=== PATIENT | male | born 1945 | race Caucasian/White ===

== ENCOUNTER → 2017-04-24 12:00 | Outpatient (REF) | payer MEDICARE, SELFPAY | LOC: LAB 12:00 | PROVIDERS: Visit Provider Family Medicine | DX: S81.802A Unspecified open wound, left lower leg, initial encounter (principal) | CPT/HCPCS: 87070; 87077; 87186; 87205 ==

== ENCOUNTER → 2017-08-04 09:48 | Outpatient (REF) | payer MEDICARE, SELFPAY | LOC: LAB 09:48 | PROVIDERS: Visit Provider Internal Medicine Adolescent Medicine | DX: S81.802A Unspecified open wound, left lower leg, initial encounter (principal) | CPT/HCPCS: 87070; 87077; 87186; 87205 ==

== ENCOUNTER 2017-10-30 11:00 | Outpatient (RCR) | payer MEDICARE, SELFPAY ==
--- NOTE | 2017-09-23 09:08 | HMH.RHREAS ---
Rehab Reassessment Rehab OP Re-assessment Start: 07/30/17 09:29 Freq: Status: Active Protocol: Document 09/23/17 08:41 DEEPTHI (Rec: 09/23/17 09:08 DEEPTHI [id number]) Electronically Signed By Darren Martin, PT 09/23/17 08:41 Rehab Re-assessment Subjective Subjective Pt reports only minimla itching from wound - no pain Objective Objective Notes wound measure 1.2 x 0.8 cm 100 % granulation Assessment Progress Assessment Progressing as Expected Assessment Notes progressing well but slow Patient goals met all stg/LTG Goals Not Met 0 Revised Goals 100% epithelialization Plan Plan cont w/ original POC Frequency of Therapy 2/week Duration of therapy 8 weeks PHYSICIAN CERTIFICATION: I certify the specified therapy services for Beth Castro are required, authorized, and reviewed every 30 days.
== END 2017-10-30 11:01 | disposition home or self-care (01) ==
LOC: PT 11:00
PROVIDERS: Visit Provider Family Medicine
DX: L97.822 Non-pressure chronic ulcer of other part of left lower leg with fat layer exposed (principal); I87.2 Venous insufficiency (chronic) (peripheral)
CPT/HCPCS: 29580; 97140; 97162; 97164; 97597

== ENCOUNTER → 2017-11-04 10:00 | Outpatient (CLI) | payer MEDICARE, SELFPAY ==
[2017-11-04 11:13] LABS: Potassium 4.4 mmoL/L (3.5-5.1)
[2017-11-04 11:37] LABS: Alanine Aminotransferase 30 U/L (12-78); Albumin Level 3.6 gm/dL (3.4-5.0); Alkaline Phosphatase 80 U/L (46-116); Anion Gap 13.4 mEq/L (5-15); Aspartate Amino Transferase 22 U/L (15-37); Bilirubin,Total 0.9 mg/dL (0.2-1.0); Blood Urea Nitrogen 18 mg/dL (7-18); Calcium 8.7 mg/dL (8.5-10.1); Carbon Dioxide 27 mmol/L (21.0-32.0); Chloride 107 mmol/L (98-107); Chol/HDL Ratio 3.9 (1-3.5); Cholesterol 166 mg/dL (140-200); Creatinine,Serum 0.83 mg/dL (0.70-1.30); Estimated Glomerular Filt Rate 91 ml/min (>60); GFR (African American) 110 ML/MIN (>60); Globulin 3.6 gm/dl (1.3-3.2); Glucose 98 mg/dL (74-106); HDL Cholesterol 43 mg/dL (27-67); LDL Cholesterol 104 mg/dL (0-130); Sodium 143 mmol/L (136-145); Thyroid Stimulating Hormone 1.75 uIU/ml (0.358-3.740); Total Protein,Serum 7.2 gm/dL (6.4-8.2); Triglycerides 97 mg/dL (30-200); VLDL Cholesterol 19 mg/dL (0-40)
== END ==
PROVIDERS: Visit Provider Nurse Practitioner Family
DX: Z00.00 Encounter for general adult medical examination without abnormal findings (principal); E03.9 Hypothyroidism, unspecified
CPT/HCPCS: 36415; 80053; 80061; 84443

== ENCOUNTER → 2018-03-03 09:58 | Outpatient (CLI) | payer MEDICARE, SELFPAY ==
[2018-03-03 11:35] LABS: Alanine Aminotransferase 24 U/L (12-78); Albumin Level 3.7 gm/dL (3.4-5.0); Alkaline Phosphatase 89 U/L (46-116); Anion Gap 11.2 mEq/L (5-15); Aspartate Amino Transferase 19 U/L (15-37); Bilirubin,Total 0.7 mg/dL (0.2-1.0); Blood Urea Nitrogen 16 mg/dL (7-18); Calcium 9.2 mg/dL (8.5-10.1); Carbon Dioxide 31 mmol/L (21.0-32.0); Chloride 106 mmol/L (98-107); Chol/HDL Ratio 3.9 (1-3.5); Cholesterol 185 mg/dL (140-200); Creatinine,Serum 0.77 mg/dL (0.70-1.30); Estimated Glomerular Filt Rate 99 ml/min (>60); GFR (African American) 120 ML/MIN (>60); Globulin 3.8 gm/dl (1.3-3.2); Glucose 74 mg/dL (74-106); HDL Cholesterol 47 mg/dL (27-67); LDL Cholesterol 100 mg/dL (0-130); Potassium 4.2 mmoL/L (3.5-5.1); Sodium 144 mmol/L (136-145); Thyroid Stimulating Hormone 11.52 uIU/ml (0.358-3.740); Total Protein,Serum 7.5 gm/dL (6.4-8.2); Triglycerides 190 mg/dL (30-200); VLDL Cholesterol 38 mg/dL (0-40)
== END ==
PROVIDERS: PCP Nurse Practitioner Family; Visit Provider Nurse Practitioner Family
DX: Z00.00 Encounter for general adult medical examination without abnormal findings (principal); E03.9 Hypothyroidism, unspecified
CPT/HCPCS: 36415; 80053; 80061; 84443

== ENCOUNTER → 2020-03-27 11:08 | Outpatient (CLI) | payer MEDICARE, SELFPAY | PROVIDERS: Visit Provider Pediatrics | DX: L97.822 Non-pressure chronic ulcer of other part of left lower leg with fat layer exposed (principal) | CPT/HCPCS: 87070; 87077; 87186; 87205 ==

== ENCOUNTER → 2020-06-07 10:45 | Outpatient (CLI) | payer MEDICARE, SELFPAY | PROVIDERS: Visit Provider Pediatrics | DX: L97.822 Non-pressure chronic ulcer of other part of left lower leg with fat layer exposed (principal) | CPT/HCPCS: 87070; 87077; 87186; 87205 ==

== ENCOUNTER → 2020-10-31 14:19 | Outpatient (POV) | payer MEDICARE, SELFPAY | PROVIDERS: Visit Provider Dermatology | DX: Z00.00 Encounter for general adult medical examination without abnormal findings (principal) ==

== ENCOUNTER 2020-11-08 14:00 | Outpatient (RCR) | payer MEDICARE, SELFPAY | END 2020-11-08 14:05 | disposition home or self-care (01) | LOC: PT 14:00 | PROVIDERS: PCP Nurse Practitioner Family; Visit Provider Pediatrics | DX: L97.822 Non-pressure chronic ulcer of other part of left lower leg with fat layer exposed (principal); L03.116 Cellulitis of left lower limb | CPT/HCPCS: 29580; 97161; 97164; 97597; 97598; 97760 ==

== ENCOUNTER 2024-08-21 10:56 | Emergency (ER) | payer MEDICARE, SELFPAY ==
[2024-08-21] VITALS (7 sets, daily range): BP systolic 121–149; BP diastolic 75–90; PULSE 71–81; RESP 20; TEMP 36.8–36.9; O2SAT 93–98; BMI 42.0
--- NOTE | 2024-08-21 10:57 | XR_ITS ---
PROCEDURE INFORMATION: Exam: XR Right Knee Exam date and time: 08/21/2024 11:31 AM Age: 79 years old Clinical indication: Injury or trauma; Fall; Other: Pain; Additional info: Fall, right hip pain TECHNIQUE: Imaging protocol: Radiologic exam of the right knee. Views: 3 views. COMPARISON: CR XR FEMUR RT 2V 08/21/2024 11:31 AM FINDINGS: Bones/joints: There is no evidence for acute fracture or dislocation. The bones are osteopenic. There is tricompartmental narrowing and osteophytosis. Soft tissues: Suprapatellar swelling is present. IMPRESSION: Osteopenia, degenerative change. Suprapatellar swelling.
--- NOTE | 2024-08-21 10:57 | XR_ITS ---
PROCEDURE INFORMATION: Exam: XR Right Hip Exam date and time: 08/21/2024 11:31 AM Age: 79 years old Clinical indication: Injury or trauma; Fall; Other: Pain; Additional info: Fall, right hip pain TECHNIQUE: Imaging protocol: Radiologic exam of the right hip. Views: 2 or 3 views hip with pelvis when performed. COMPARISON: CR XR FEMUR RT 2V 08/21/2024 11:31 AM FINDINGS: Bones/joints: There is an angulated comminuted intertrochanteric fracture of the right proximal femur. Soft tissues: Unremarkable. IMPRESSION: Fracture of the right proximal femur.
--- NOTE | 2024-08-21 10:57 | XR_ITS ---
PROCEDURE INFORMATION: Exam: XR Right Femur Exam date and time: 08/21/2024 11:31 AM Age: 79 years old Clinical indication: Injury or trauma; Fall; Other: Pain; Additional info: Fall, right hip pain TECHNIQUE: Imaging protocol: Radiologic exam of the right femur. Views: 2 views. COMPARISON: CR XR HIP RT 2-3V W/PELVIS 08/21/2024 11:31 AM FINDINGS: Bones/joints: Study is limited by patient body habitus and notable underpenetration obscuring the right hip joint. The bones are osteopenic. There is intertrochanteric fracture of the right proximal femur. Soft tissues: Unremarkable. IMPRESSION: Limited study. Fracture of the right proximal femur.
--- NOTE | 2024-08-21 11:00 | CT_ITS ---
PROCEDURE INFORMATION: Exam: CT Head Without Contrast Exam date and time: 08/21/2024 11:24 AM Age: 79 years old Clinical indication: Injury or trauma; Additional info: Fall TECHNIQUE: Imaging protocol: Computed tomography of the head without contrast. Radiation optimization: All CT scans at this facility use at least one of these dose optimization techniques: automated exposure control; mA and/or kV adjustment per patient size (includes targeted exams where dose is matched to clinical indication); or iterative reconstruction. COMPARISON: No relevant prior studies available. FINDINGS: Brain: There is no mass effect, midline shift, acute hemorrhage, extra-axial fluid collection, acute hemorrhage, extra-axial fluid collection or acute lobar infarct. Patchy hemispheric white matter hypodensity likely represents chronic microvascular ischemic change Cerebral ventricles: No ventriculomegaly. Paranasal sinuses: Visualized sinuses are unremarkable. No fluid levels. Mastoid air cells: Visualized mastoid air cells are well aerated. Bones: Unremarkable. No acute fracture. Soft tissues: Unremarkable. IMPRESSION: No acute intracranial process.
--- NOTE | 2024-08-21 11:00 | CT_ITS ---
PROCEDURE INFORMATION: Exam: CT Cervical Spine Without Contrast Exam date and time: 08/21/2024 11:26 AM Age: 79 years old Clinical indication: Injury or trauma; Additional info: Fall TECHNIQUE: Imaging protocol: Computed tomography of the cervical spine without contrast. Radiation optimization: All CT scans at this facility use at least one of these dose optimization techniques: automated exposure control; mA and/or kV adjustment per patient size (includes targeted exams where dose is matched to clinical indication); or iterative reconstruction. COMPARISON: No relevant prior studies available. FINDINGS: Bones: There is no evidence for acute cervical fracture. The bones are osteopenic. Spondylosis is noted with disc osteophyte, uncovertebral spurring and facet arthropathy Lungs: Lung apices are normal. Soft tissues: Unremarkable. IMPRESSION: No evidence of acute cervical fracture.
[2024-08-21] MEDS: MORPHINE 4MG/ML SYRINGE 4 MG IV (11:04)
[2024-08-21] MEDS: ONDANSETRON 4MG/2ML VIAL 4 MG IV (11:04)
--- NOTE | 2024-08-21 11:06 | HMH.EDGENADL ---
Discharge Plan Disposition Patient Disposition: Xfer SNF Referrals Follow up/Referrals: Provider,Referral, MD [Referring] - See instructions Clinical Impressions Clinical Impression: Fall, Femur fracture, right Stand Alone Forms Stand Alone Forms: Transfer Record - ED Print Language Print Language: Malawian Discharge ED Provider: Lm Major General Adult HPI General Chief complaint: Extremity Injury, Lower Stated complaint: fall Time Seen by Provider: 08/21/24 11:00 Mode of Arrival: EMS Source of Information: Patient and EMS Description of Symptoms (Recalled from ER Triage Doc. by RN): pt was in [facility] and fell in the bathroom. r hip pain. denies LOC or hitting his head. no blood thinners. History of Present Illness HPI narrative: 79-year-old male presents to ED via EMS after a mechanical fall. Patient denies significant past medical history beyond being borderline diabetic. Is not on blood thinners. Was going to the restroom at [facility] using his cane it slipped out from under him causing him to fall landing on his right hip causing pain at right hip. Denies head injury, neck pain, loss of consciousness, is not on blood thinners, denies daily aspirin usage. Denies any other symptoms or concerns beyond right hip pain. Pulse motor or sensory intact on arrival, decreased range of motion at right hip secondary to pain. Please note that above description of symptoms, in this electronic medical record under categorization of recalled from ER triage doctor by RN are reflective of an initial nursing assessment, however, is not reflective of my full history and physical exam that was personally taken and clarified. Consequentially, this preceding description of symptoms, which may include the patient's categorized chief complaint in the EMR, do not reflect my personal clinical impression, and the ultimate description of history of present illness and patient stated complaints should be deferred to this section of the note. Unless stated otherwise or congruent with this section of the note, additional signs, symptoms, or incongruence should be interpreted as inaccurate with my clinical impression. Related Data Allergies Allergy/AdvReac Type Severity Reaction Status Date / Time No Known Allergies Allergy Verified 08/21/24 11:00 [facility] Disclaimer: The information contained in this section may have been updated after the patient was seen, as this information can be updated by other users. Social History Smoking Status: Never smoker alcohol intake: never current occupational status: other Travel in the last 8 weeks?: None ROS Obtained: Yes Systems reviewed as appropriate & no additional complaints except as documented Physical Exam General General appearance: alert and in no apparent distress Head Head exam: atraumatic, normocephalic and normal inspection Eye Eye exam: Present normal appearance, PERRL and EOMI ENT ENT exam: Present normal exam, normal oropharynx, mucous membranes moist, TM's normal bilaterally and normal external ear exam Neck Neck exam: Present normal inspection, full ROM and trachea midline; Absent meningismus or lymphadenopathy Chest Chest inspection: Present normal inspection and symmetric chest wall rise; Absent tenderness Respiratory Respiratory exam: Absent respiratory distress or stridor Cardiovascular Cardiovascular exam: Present regular rate and normal rhythm; Absent JVD Abdominal Exam Abdominal exam: Present soft and other (Umbilical hernia noted, no overlying skin changes); Absent distention, tenderness or guarding Extremities Exam Extremities exam: Present tenderness (Tender to palpation of right hip laterally and anteriorly. Remainder of her extremities without tenderness to palpation, no noted deformity, all compartments soft.) and normal capillary refill; Absent calf tenderness Back Exam Back exam: Present normal inspection; Absent tenderness Neurological Exam Neurological exam: Present alert, oriented X3 and CN II-XII intact; Absent motor sensory deficit Psychiatric Psychiatric exam: Present normal affect and normal mood Skin Skin exam: Present warm, dry, intact and normal color Lymphatic Lymphatic Findings: no adenopathy Medical Decision Making Medical Records Medical records reviewed: Yes I reviewed the patient's medical records. Screening: Per USPSTF and CDC recommendations, given the prevalence of disease in our region, it is our hospital?s policy to screen for HIV and viral Hepatitis for all patients aged 18 and over and those with ongoing risk factors. Ariel Inquiry Pt receiving controlled substance: No Ariel was queried for this patient: No Vital Signs: 08/21/24 10:56 08/21/24 12:00 08/21/24 12:31 Temperature 98.5 F Temperature Source Oral Pulse Rate 71 81 Pulse Rate [Right] 81 Respiratory Rate 20 Blood Pressure 126/82 130/78 Blood Pressure [Right Arm] 149/90 H Blood Pressure Mean [Right Arm] 109 02 Sat by Pulse Oximetry 98 94 L 94 L Oxygen Delivery Method Room Air Room Air Room Air 08/21/24 13:00 08/21/24 13:30 Temperature Temperature Source Pulse Rate 79 78 Pulse Rate [Right] Respiratory Rate Blood Pressure 130/81 121/77 Blood Pressure [Right Arm] Blood Pressure Mean [Right Arm] 02 Sat by Pulse Oximetry 94 L 94 L Oxygen Delivery Method Room Air Room Air Orders (Tests/Meds): ED MEDICATIONS Discontinued Medications Generic Name Dose Route Start Last Admin Trade Name Dominguez PRN Reason Stop Dose Admin Morphine Sulfate 4 mg 08/21/24 10:59 08/21/24 11:04 Morphine 4mg/Ml Syringe IV 08/21/24 11:00 4 mg ONCE ONE Administration Ondansetron HCl 4 mg 08/21/24 10:57 08/21/24 11:04 Ondansetron 4mg/2ml Vial IV 08/21/24 10:58 4 mg ONCE ONE Administration Oxycodone HCl 5 mg 08/21/24 12:51 08/21/24 13:03 Oxycodone 5mg Immediate Release Tablet PO 08/21/24 12:52 5 mg ONCE ONE Administration ORDERS Category Date Time Status CT cervical spine wo con Stat Cat Scan 08/21/24 11:[address] head/brain wo con Stat Cat Scan 08/21/24 11:00 Completed Femur XR right 2 views [XR femur RT 2V] Stat Exams 08/21/24 10:57 Completed Knee XR right 3 views [XR knee RT 3V] Stat Exams 08/21/24 10:57 Completed XR hip RT 2-3V w/pelvis Stat Exams 08/21/24 10:57 Completed Medical Decision Narrative: Patient with history and exam per above presenting for evaluation of fall resulting in right hip pain. Fall was mechanical in nature. No loss consciousness, not on blood thinners, no head neck or back pain, no chest or abdominal pain. Physical neurological exam as above, reassuring Diagnoses considered include musculoskeletal pain, fracture, dislocation, intracranial abnormality, spinous abnormality ED workup and treatment included: As above. Physical exam as above, reassuring physical and neurological exam beyond decreased range of motion and tenderness to palpation of right hip Imaging was independently visualized and interpreted by me, significant for right intertrochanteric femur fracture Please refer to radiology report for full details. My clinical impression at this time is most consistent with fall, right intertrochanteric femur fracture. Discussed patient with [facility] orthopedic physician Dr. Torres who was agreeable to patient being transferred there for further evaluation of fracture. Spoke with a Dr. Gordillo with hospital medicine who accepted patient to be transferred for admission. Patient ultimately transferred to [facility] with HDS condition. I discussed my clinical impression with patient and answered all questions. At this time, the evidence for any other entities in the differential is insufficient to warrant any further testing or ED observation. This was explained to the patient. The patient was advised that persistent or worsening symptoms require further evaluation. Critical Care Critical Care Time Critical Care Time: No
--- NOTE | 2024-08-21 11:19 | PC.NURSE ---
pt is going for scans at this time
--- OUTSIDE RECORDS SUMMARY | 2024-08-21 11:22 | XMS_ITS | Continuity of Care Document ---
Author Organization [facility] Phone Care Team Providers Care Coding Spec Name Role Phone NATHALIE SPRAGUE Primary Attending [phone] NATHALIE SPRAGUE Primary Care [phone] NATHALIE SPRAGUE Unavailable NATHALIE SPRAGUE Admitting ALLERGIES AND ADVERSE REACTIONS ALLERGIES AND ADVERSE REACTIONS Code System Allergy Substance Adverse Reaction Date Reaction (Severity) Comment Status Reported By Updated By LATEX (Free Text Allergy) Adverse reaction to substance Not Specified active [id number] on August 24, 2023 10:58:01 PM [facility] FAMILY HISTORY RELATION: Father Status: Cause of : Unknown Age at : Unknown SNOMED-CT Diagnosis Age At Onset Information not available RELATION: Mother Status: Cause of : Unknown Age at : Unknown SNOMED-CT Diagnosis Age At Onset [id number] Heart disease RESULTS Patient: DEQUAN BRAND Date of : May [birth year] LABORATORY RESULTS ORDER 200: CBC AUTO W DIFF ( LOINC: 41639-7) ORDER DATE: May 15, 2024 2:01:00 PM [place] Specimen Source: Whole Blood Specimen Type: Whole blood s ample PERFORMING LAB: [address] [id number] Result Comment: Final Result Date: May 15, 2024 2:38:00 PM [facility] (TECH: [facility]) LOINC TEST FLAG RESULT REFERENCE RANGE UPDA ÁNGEL BY 6690-2 Leukocytes [#/volume] in Blood by Automated count L 4.3 10^3/uL 4.5 10^3/uL - 11.5 10^3/uL May 15, 2024 2:38:00 PM [place] (TECH: [facility]) 789-8 Erythrocytes [#/volume] in Blood by Automated count L 4.14 10^6/uL 4.25 10^6/uL - 5.57 10^6/uL May 15, 2024 2:38:00 PM UTC (TECH: [email or web address]) 718-7 Hemoglobin [Mass/volume] in Blood N 13.9 g/dL 13.5 g/dL - 17.2 g/dL May 15, 2024 2:38:00 PM UTC (TECH: [email or web address]) 91368-4 Hematocrit [Volume Fraction] of Blood N 42.4 % 42.0 % - 52.0 % May 15, 2024 2:38:00 PM UTC (TECH: [email or web address]) 787-2 Erythrocyte mean corpuscular volume [Entitic volume] by Automated count H 102.4 fl 80 fl - 95 fl May 15, 2024 2:38:00 PM UTC (TECH: [email or web address]) 87853-4 Erythrocyte mean corpuscular hemoglobin [Entitic mass] in Blood from [place] by Automated count N 33.6 pg 27.0 pg - 34.0 pg May 15, 2024 2:38:00 PM UTC (TECH: [email or web address]) 54404-2 Erythrocyte mean corpuscular hemoglobin concentration [Mass/volume] in Blood from [place]etus by Automated count N 32.8 g/dL 32.0 g/dL - 36.0 g/dL May 15, 2024 2:38:00 PM UTC (TECH: [email or web address]) 06231-7 Platelets [#/volume] in Blood L 97 10^3/uL 150 10^3/uL - 450 10^3/uL May 15, 2024 2:38:00 PM UTC (TECH: [email or web address]) 85316-8 Erythrocyte distribution width [Ratio] N 12.4 % 12.3 % - 15.1 % May 15, 2024 2:38:00 PM UTC (TECH: [email or web address]) 03195-0 Platelet mean volume [Entitic volume] in Blood by Automated count N 9.4 fl 7.4 fl - 10.4 fl May 15, 2024 2:38:00 PM UTC (TECH: [email or web address]) 32158-0 Granulocytes/100 leukocytes in Blood by Automated count N 55.3 % 40 % - 75 % May 15, 2024 2:38:00 PM UTC (TECH: [email or web address]) 736-9 Lymphocytes/100 leukocytes in Blood by Automated count N 28.4 % 15 % - 57 % May 15, 2024 2:38:00 PM UTC (TECH: [facility]) 5905-5 Monocytes/100 leukocytes in Blood by Automated count N 10.7 % 4.0 % - 12.0 % May 15, 2024 2:38:00 PM UTC (TECH: [facility]) 713-8 Eosinophils/100 leukocytes in Blood by Automated count H 4.2 % 0.0 % - 4.0 % May 15, 2024 2:38:00 PM UTC (TECH: [facility]) 706-2 Basophils/100 leukocytes in Blood by Automated count N 0.5 % 0.0 % - 1.0 % May 15, 2024 2:38:00 PM UTC (TECH: [email or web address]) 72253-3 Immature granulocytes [#/volume] in Blood H 0.9 % 0.0 % - 0.8 % May 15, 2024 2:38:00 PM UTC (TECH: [email or web address]) 52315-7 Granulocytes [#/volume] in Blood by Automated count N 2.37 10^3/uL May 15, 2024 2:38:00 PM UTC (TECH: [email or web address]) 731-0 Lymphocytes [#/volume] in Blood by Automated count N 1.22 10^3/uL May 15, 2024 2:38:00 PM UTC (TECH: [facility]) 742-7 Monocytes [#/volume] in Blood by Automated count N 0.46 10^3/uL May 15, 2024 2:38:00 PM UTC (TECH: [email or web address]) 711-2 Eosinophils [#/volume] in Blood by Automated count N 0.18 10^3/uL May 15, 2024 2:38:00 PM UTC (TECH: [email or web address]) 704-7 Basophils [#/volume] in Blood by Automated count N 0.02 10^3/uL May 15, 2024 2:38:00 PM UTC (TECH: [email or web address]) 95708-8 Immature granulocytes [#/volume] in Blood N 0.04 10^3/uL May 15, 2024 2:38:00 PM UTC (TECH: [email or web address]) 67581-6 Manual differential performed [Presence] in Blood N NO May 15, 2024 2:38:00 PM UTC (TECH: [email or web address]) ORDER 300: SEDIMENTATION RAT E (LOINC: 09103-3) ORDER DATE: May 15, 2024 2:01:00 PM UTC Specimen Source: Serum/Plasm a Specimen Type: Acellular blo od (serum or plasma) specimen PERFORMING LAB: [address] [id number] Result Comment: Final Result Date: May 15, 2024 2:57:00 PM UTC (TECH: [email or web address]) LOINC TEST FLAG RESULT [place]FERENCE [place] [address]-7 Erythrocyte sedimentation rate N 8 mm/Hr 0 mm/Hr - 20 mm/Hr May 15, 2024 2:57:00 PM UTC (TECH: [email or web address]) ORDER 400: COMP METABOLIC PA UCHE (LOINC: 26022-7) ORDER DATE: May 15, 2024 2:01:00 PM UTC Specimen Source: Serum/Plasm a Specimen Type: Acellular blo od (serum or plasma) specimen PERFORMING LAB: [address] [id number] Result Comment: Final Result Date: May 15, 2024 2:38:00 PM UTC (TECH: [email or web address]) LOINC TEST FLAG RESULT REFERENCE RANGE UPDA ÁNGEL BY 2951-2 Sodium [Moles/volume ] in Serum or Plasma N 140 mmol/L 136 mmol/L - 145 mmol/L May 15, 2024 2:38:00 PM UTC (TECH: [email or web address]) 2823-3 Potassium [Moles/volume] in Serum or Plasma N 4.2 mmol/L 3.5 mmol/L - 5.1 mmol/L May 15, 2024 2:38:00 PM UTC (TECH: [email or web address]) 5-0 Chloride [Moles/volu me] in Serum or Plasma N 105 mmol/L 98 mmol/L - 107 mmol/L May 15, 2024 2:38:00 PM UTC (TECH: [email or web address]) 2027-9 Carbon dioxide, tota l [Moles/volume] in Serum or Plasma N 29 mmol/L 21 mmol/L - 32 mmol/L May 15, 2024 2:38:00 PM UTC (TECH: [email or web address]) 51701-6 Anion gap 3 in Serum or Plasma N 6.0 May 15, 2024 2:38:00 PM UTC (TECH: [email or web address]) 2345-7 Glucose [Mass/volume ] in Serum or Plasma H 117 mg/dL 70 mg/dL - 110 mg/dL May 15, 2024 2:38:00 PM UT (TECH: [email or web address]) 3094-0 Urea nitrogen [Mass/volume] in Serum or Plasma N 17 mg/dL 7 mg/dL - 18 mg/dL May 15, 2024 2:38:00 PM UT (TECH: [email or web address]) 2160-0 Creatinine [Mass/volume] in Serum or Plasma N 1.3 mg/dL 0.8 mg/dL - 1.3 mg/dL May 15, 2024 2:38:00 PM UTC (TECH: [email or web address]) 3097-3 Urea nitrogen/Creatinine [Mass Ratio] in Serum or Plasma N 13.1 9 - May 15, 2024 2:38:00 PM UT (TECH: [email or web address]) 89685-0 Glomerular filtratio n rate/1.73 sq M.predicted by Creatinine-based formula (MDRD) L 56 mL/min >60 May 15, 2024 2:38:00 PM UT (TECH: [email or web address]) 2885-2 Protein [Mass/volume ] in Serum or Plasma N 7.5 g/dL 6.4 g/dL - 8.2 g/dL May 15, 2024 2:38:00 PM UT (TECH: [email or web address]) 1751-7 Albumin [Mass/volume ] in Serum or Plasma N 3.4 g/dL 3.4 g/dL - 5.0 g/dL May 15, 2024 2:38:00 PM UT (TECH: [email or web address]) 65050-9 Calcium [Mass/volume ] in Serum or Plasma N 8.5 mg/dL 8.5 mg/dL - 10.1 mg/dL May 15, 2024 2:38:00 PM UT (TECH: [email or web address]) 85922-4 Calcium [Mass/volume ] corrected for total protein in Serum or Plasma N 9.0 mg/dL 8.5 mg/dL - 10.1 mg/dL May 15, 2024 2:38:00 PM UT (TECH: [email or web address]) 1975-2 Bilirubin.total [Mass/volume] in Serum or Plasma N 1.4 mg/dL 0.4 mg/dL - 1.5 mg/dL May 15, 2024 2:38:00 PM UTC (TECH: [email or web address]) 1920-8 Aspartate aminotransferase [Enzymatic activity/volume] in Serum or Plasma N 17 U/L 15 U/L - 37 U/L May 15, 2024 2:38:00 PM UTC (TECH: [email or web address]) 1742-6 Alanine aminotransferase [Enzymatic activity/volume] in Serum or Plasma N 19 U/L 12 U/L - 78 U/L May 15, 2024 2:38:00 PM UTC (TECH: [email or web address]) 6768-6 Alkaline phosphatase [Enzymatic activity/volume] in Serum or Plasma N 104 U/L May 15, 2024 2:38:00 PM UTC (TECH: [email or web address]) ORDER 500: C-REACTIVE PROTEI N (LOINC: 1987-08) ORDER DATE: May 15, 2024 2:01:00 PM UTC Specimen Source: Serum/Plasm a Specimen Type: Acellular blo od (serum or plasma) specimen PERFORMING LAB: [address] [id number] Result Comment: Final Result Date: May 15, 2024 2:38:00 PM UT (TECH: [email or web address]) LOINC TEST FLAG RESULT REFERENCE RANGE UPDA ÁNGEL BY 1987-08 C reactive protein [Mass/volume] in Serum or Plasma N 0.30 mg/dL 0.05 mg/dL - 0.300 mg/dL May 15, 2024 2:38:00 PM UT (TECH: [email or web address]) ORDER 600: HEMOGLOBIN A1C (L OINC: 4548-4) ORDER DATE: May 17, 2024 2:49:00 PM UTC Specimen Source: Whole Blood Specimen Type: Whole blood s ample PERFORMING LAB: [address] [id number] Result Comment: Final Result Date: May 17, 2024 3:12:00 PM UT (TECH: [email or web address]) LOINC TEST FLAG RESULT REFERENCE RANGE UPDA ÁNGEL BY 4548-4 Hemoglobin A1c/Hemoglobin.tot al in Blood N 6.1 % 4.5 % - 6.2 % May 17, 2024 3:12:00 PM UT (TECH: [email or web address]) 03603-1 Glucose mean value [Mass/volume] in Blood Estimated from glycated hemoglobin N 128 mg/dl 82 mg/dl - 131 mg/dl May 17, 2024 3:12:00 PM UTC (TECH: [email or web address]) ORDER 700: THYROID STIMULATI NG HORMONE (LOINC: 3016-3) ORDER DATE: May 17, 2024 2:49:00 PM UTC Specimen Source: Serum/Plasm a Specimen Type: Acellular blo od (serum or plasma) specimen PERFORMING LAB: [address] [id number] Result Comment: Final Result Date: May 17, 2024 3:28:00 PM UTC (TECH: [facility]) LOINC TEST FLAG RESULT REFERENCE RANGE UPDA ÁNGEL BY 3016-3 Thyrotropin [Units/volume] in Serum or Plasma H 21.87 mIU/mL 0.34 mIU/mL - 4.80 mIU/mL May 17, 2024 3:28:00 PM UTC (TECH: [facility]) ORDER 800: T4 FREE (LOINC: 3 024-7) ORDER DATE: May 17, 2024 3:27:00 PM UTC Specimen Source: Serum/Plasm a Specimen Type: Acellular blo od (serum or plasma) specimen PERFORMING LAB: [address] [id number] Result Comment: Final Result Date: May 17, 2024 3:46:00 PM UTC (TECH: [email or web address]) LOINC TEST FLAG RESULT REFERENCE RANGE UPDA ÁNGEL BY 3024-7 Thyroxine (T4) free [Mass/volume] in Serum or Plasma L 0.69 ng/dl 0.76 ng/dl - 1.46 ng/dl May 17, 2024 3:46:00 PM UTC (TECH: [facility]) LABORATORY NARRATIVE RESULTS Information is not available RADIOLOGY RESULTS Information is not available PATHOLOGY NARRATIVE RESULTS Information is not available MICROBIOLOGY RESULTS No Micro Labs/Results Exist for Patient BLOOD ADMIN RESULTS Information is not available MEDICATIONS HOME MEDICATIONS Status RXNORM NDC Medication Dose Route Frequency Dates Comments Reported By Updated By Drug Treatment Unknown DISCHARGE MEDICATIONS Status RXNORM NDC Medication Dose Route Frequency Dates Comments Physician Updated By No Discharge Medication Info rmation Available INPATIENT MEDICATIONS Status RXNORM NDC Medication Dose Route Frequency Rat e Quantity Dates Comments Physician Updated By No Inpatient Medication Info rmation Available SOCIAL HISTORY SOCIAL HISTORY SNOMED-CT Social History Element Description Effective Dates Offered Cessation Comment UpdatedBy [id number] Historical Tobacco smoking status Never Smoked Yes [id number] on December 12, 2014 4:55:49 PM [facility] SOCIAL HISTORY - Gender Sex: Male SOCIAL HISTORY - Status : status i nformation is not available Intention in Next Year: intention information is not available SOCIAL HISTORY - Sexual Behavior Sexual Orientation Gender Identity SNOMED-CT Description SNO MED -CT Description Activity Level No of Partners Partner Type UpdatedBy Information is not available HEALTH CONCERNS Problems Concern Status Health Concern problem infor mation not available. Smoking Status Status Years Used Consumed packs p er day Health Concern smoking histo ry information not available. Family History Concern Status Health Concern family histor y information not available. ENCOUNTERS ENCOUNTER INFORMATION Reason for Visit L03.116 Admission May 15, 2024 1:42:[address] [id number] Discharge May 15, 2024 1:42:00 PM [facility] DISCHARGED TO HOME OR SELF CARE ENCOUNTER DIAGNOSES Notes information is not eva ilable. Code System Diagnosis Onset Date Diagnosis information is not available. ABSTRACT DIAGNOSES Code System Diagnosis Updated By L03.116 ICD10 CELLULITIS OF LEFT LOWER AMBROSE B [id number] on May 18, 2024 8:23:37 AM [facility] L03.116 ICD10 CELLULITIS OF LEFT LOWER AMBROSE B [id number] on May 18, 2024 8:23:40 AM [facility] CARE TEAM Care Coding Spec Role NATHALIE SPRAGUE Primary Attending NATHALIE SPRAGUE Primary Care NATHALIE SPRAGUE Referring NATHALIE SPRAGUE Admitting CARE TEAM CARE behavioral pediatrician Role on Team Status Start Date End Date Update d By DARCIE ZELAYA APRN Referring normal May 15, 2024 5:00:00 AM [facility] May 15, 2024 1:42:00 PM [facility] [id number] on May 15, 2024 1:43:15 PM [facility] DARCIE ZELAYA APRN Attending normal May 15, 2024 5:00:00 AM [facility] May 15, 2024 1:42:00 PM [facility] [id number] on May 15, 2024 1:43:15 PM [facility] DARCIE ZELAYA APRN Admitting normal May 15, 2024 5:00:00 AM [facility] May 15, 2024 1:42:00 PM [facility] [id number] on May 15, 2024 1:43:15 PM [facility] DARCIE ZELAYA APRN PCP normal May 15, 2024 5:00:00 AM [facility] May 15, 2024 1:42:00 PM [facility] [id number] on May 15, 2024 1:43:15 PM [facility]
--- OUTSIDE RECORDS SUMMARY | 2024-08-21 11:22 | XMS_ITS | Data Portability ---
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 Plan of Treatment Reminders Order Date Submit Date Provider Last Modified By Organization Details Last Modified Time Details Appointments None recorded. Lab TSH, serum or plasma 2023 024 [email or web address] 6 [facility], [address] [place], [address], 4 12:55:43 mma (methylmal onic acid), serum 2023 024 [email or web address] 6 [facility], [address] [place], [address], 4 12:55:43 vitamin B12, serum 2023 024 [email or web address] 6 [facility], [address] [place], [address], 4 12:55:43 folate, serum 2023 024 BHARTI [facility], [address] , [place], [address], 4 13:17:57 PT/PTT, plasma 2023 024 [email or web address] 6 [facility], [address] [place], [address], 4 12:55:43 iron + TIBC + ferritin, serum 2023 024 [facility], [address], [place], [address], 4 12:55:44 iron saturation , serum 2023 024 [facility] 6 [facility], [address] [place], [address], 4 12:55:44 CBC w/ auto diff 2023 024 [facility], [address] [place], [address], 4 12:11:49 CMP, serum or plasma 2023 024 [facility], [address] [place], [address], 4 13:08:11 CBC w/ auto diff 2023 024 [facility], [address] [place], [address], 4 15:20:02 CMP, serum or plasma 2023 024 [facility], [address] [place], [address], 4 12:02:29 ldh, serum or plasma 2023 024 [facility], [address] [place], [address], 4 12:02:31 RADHA (antinucle ar antibodies ) screen, serum 2023 024 [facility], [address] [place], [address], 4 13:13:06 HIV (1+2) Ab screen, serum 2023 024 [email or web address] 6 [facility], [address] [place], [address], 4 08:38:39 hepatitis panel (A+B+C), acute, serum 2023 024 [email or web address] 6 [facility], [address] [facility], [place], [address], 4 08:38:39 platelets, auto, blood [email or web address] [place] [address] Lab, [address] [place], [address], 4 08:38:39 platelet Ab, serum 2023 024 BHARTI [facility], [address] [place], [address], 4 15:15:49 fadumo-ba rr virus (ebv) IgG + IgM panel, serum 2023 024 [email or web address] 6 [facility], [address] [place], [address], 4 08:38:39 Referral None recorded. Procedures None recorded. Surgeries None recorded. Imaging None recorded. Medication Orders None recorded. Patient TargetsNo targets recorded. Patient InstructionsNo instructions recorded. Reason for Referral None Reported. Results Created Date Observation Date Name Description Value Unit Range Abnormal Flag Note LastModifiedBy Organization Detail LastModifiedTime 09/29/19 24 09/29/2023 COMP METAB OLIC PANEL sodium 141 mmol/ L 136-14 5 Not Available [facility]) [address] [facility], [place], [address], 09/29/2023 12:02:29 09/29/19 24 09/29/2023 COMP METAB OLIC PANEL potassium 4.0 mmol/ L 3.6-5. 0 Not Available [facility] ([facility]) [address] , [place], [address], 09/29/2023 12:02:29 09/29/19 24 09/29/2023 COMP METAB OLIC PANEL chloride 106 mmol/ L 98-107 Not Available [facility] ([facility]) [address], [place], [address], 09/29/2023 12:02:29 09/29/19 24 09/29/2023 COMP METAB OLIC PANEL carbon dioxide 25.0 mmol/ L 21.0-3 2.0 Not Available [facility] ([facility]) [address], [place], [address], 09/29/2023 12:02:29 09/29/19 24 09/29/2023 COMP METAB OLIC PANEL anion gap 14.0 Not Available [facility] ([facility]) [address], [place], [address], 09/29/2023 12:02:29 09/29/19 24 09/29/2023 COMP METAB OLIC PANEL glucose 132 mg/dL 70-120 high Not Available [facility] ([facility]) [address] [place], [address], 09/29/2023 12:02:29 09/29/19 24 09/29/2023 COMP METAB OLIC PANEL BUN 14 mg/dL 7-18 Not Available [facility] ([facility]) [address] [place], [address], 09/29/2023 12:02:29 09/29/19 24 09/29/2023 COMP METAB OLIC PANEL creatinine 1.0 mg/dL 0.6-1. 3 Not Available [facility] [address] [facility] [place] [place], [address], 09/29/2023 12:02:29 09/29/19 24 09/29/2023 COMP METAB OLIC PANEL glomerular filtration rate TNP mlper min 60- TEST NOT PERFO RMED GFR has only been valid ated from 18 to 70 years of age. Not Available [facility] ([facility]) [address], [place], [address], 09/29/2023 12:02:29 09/29/19 24 09/29/2023 COMP METAB OLIC PANEL total protein 7.3 g/dL 6.4-8. 2 Not Available [facility] ([facility]) [address], [place], [address], 09/29/2023 12:02:29 09/29/19 24 09/29/2023 COMP METAB OLIC PANEL albumin 3.7 g/dL 3.4-5. 0 Not Available [facility] ([facility]) [address], [place], [address], 09/29/2023 12:02:29 09/29/19 24 09/29/2023 COMP METAB OLIC PANEL globulin 3.6 Not Available [facility] ([facility]) [address], [place], [address], 09/29/2023 12:02:29 09/29/19 24 09/29/2023 COMP METAB OLIC PANEL alb/glob ratio 1.0 0.7-2 Not Available [facility] ([facility]) [address], [place], [address], 09/29/2023 12:02:29 09/29/19 24 09/29/2023 COMP METAB OLIC PANEL calcium 8.4 mg/dL 8.5-10 .5 low Not Available [facility] ([facility]) [address], [place], [address], 09/29/2023 12:02:29 09/29/19 24 09/29/2023 COMP METAB OLIC PANEL bilirubin total 1.20 mg/dL 0.10-1 .00 high Not Available [facility] ([facility]) [address] , [place], [address], 09/29/2023 12:02:29 09/29/19 24 09/29/2023 COMP METAB OLIC PANEL AST (SGOT) 14 U/L 0-37 Not Available [facility] ([facility]) [address] , [place], [address], 09/29/2023 12:02:29 09/29/19 24 09/29/2023 COMP METAB OLIC PANEL ALT (SGPT) 16 U/L 0-65 Not Available [facility] ([facility]) [address] , [place], [address], 09/29/2023 12:02:29 09/29/19 24 09/29/2023 COMP METAB OLIC PANEL alk phosphatase 78 U/L 46-116 Not Available [facility] ([facility]) [address] , [place], [address], 09/29/2023 12:02:29 09/29/19 24 09/29/2023 LDH (LD) LDH 180 U/L 0-190 Not Available [facility] ([facility]) [address] , [place], [address], 09/29/2023 12:02:31 09/29/19 24 09/29/2023 CBC AUTO W DIFF WBC 4.3 K/uL 4.0-10 .5 Not Available [facility] ([facility]) [address] [place], [address], 09/29/2023 15:20:02 09/29/19 24 09/29/2023 CBC AUTO W DIFF RBC 3.9 M/mm3 4.7-6. 1 low Not Available [facility] [address] [facility] [place], [address], 09/29/2023 15:20:02 09/29/19 24 09/29/2023 CBC AUTO W DIFF HGB 13.5 gm/dL 13.5-1 8.0 Not Available [facility] ([facility]) [address] , [place], [address], 09/29/2023 15:20:02 09/29/19 24 09/29/2023 CBC AUTO W DIFF HCT 40.5 % 42.0-5 2.0 low Not Available [facility] ([facility]) [address], [place], [address], 09/29/2023 15:20:02 09/29/19 24 09/29/2023 CBC AUTO W DIFF MCV 103.1 fL 78-100 high Not Available [facility] ([facility]) [address] , [place], [address], 09/29/2023 15:20:02 09/29/19 24 09/29/2023 CBC AUTO W DIFF MCH 34.4 pg 27-31 high Not Available [facility] ([facility]) [address] , [place], [address], 09/29/2023 15:20:02 09/29/19 24 09/29/2023 CBC AUTO W DIFF MCHC 33.3 g/dL 32-36 Not Available [facility] ([facility]) [address] , [place], [address], 09/29/2023 15:20:02 09/29/19 24 09/29/2023 CBC AUTO W DIFF RDW 13.1 % 11.5-1 4.0 Not Available [facility] ([facility]) [address], [place], [address], 09/29/2023 15:20:02 09/29/19 24 09/29/2023 CBC AUTO W DIFF platelet count 98 K/uL 150-45 0 low Not Available [facility] ([facility]) [address] [place], [address], 09/29/2023 15:20:02 09/29/19 24 09/29/2023 CBC AUTO W DIFF MPV 11.8 fL 6-9.5 high Not Available [facility] ([facility]) [address] [place], [address], 09/29/2023 15:20:02 09/29/19 24 09/29/2023 CBC AUTO W DIFF neutrophil% 54.3 % 43-65 Not Available [facility] ([facility]) [address] [place], [address], 09/29/2023 15:20:02 09/29/19 24 09/29/2023 CBC AUTO W DIFF lymphocyte% 29.2 % 20.5-4 5.5 Not Available [facility] ([facility]) [address] [place], [address], 09/29/2023 15:20:02 09/29/19 24 09/29/2023 CBC AUTO W DIFF monocyte% 10.6 % 5.5-11 .7 Not Available [facility] ([facility]) [address] [place], [address], 09/29/2023 15:20:02 09/29/19 24 09/29/2023 CBC AUTO W DIFF eosinophil% 3.8 % 0.9-2. 9 high Not Available [facility] ([facility]) [address] [place], [address], 09/29/2023 15:20:02 09/29/19 24 09/29/2023 CBC AUTO W DIFF basophil% 1.2 % 0.2-1. 0 high Not Available [facility] ([facility]) [address] [place], [address], 09/29/2023 15:20:02 09/29/19 24 09/29/2023 CBC AUTO W DIFF immature granulocytes % 0.9 % 0.0-0. 8 high Not Available [facility] ([facility]) [address] [facility], [place], [address], 09/29/2023 15:20:02 09/29/19 24 09/29/2023 CBC AUTO W DIFF nucleated red blood cells % 0.0 % Not Available [facility] ([facility]) [address] [facility], [place], [address], 09/29/2023 15:20:02 09/29/19 24 09/29/2023 CBC AUTO W DIFF neutrophil# 2.3 K/uL 2.2-4. 8 Not Available [facility] ([facility]) [address] [facility], [place], [address], 09/29/2023 15:20:02 09/29/19 24 09/29/2023 CBC AUTO W DIFF lymphocyte# 1.2 cell/ mcL 1.3-2. 9 low Not Available [facility] ([facility]) [address] [place], [address], 09/29/2023 15:20:02 09/29/19 24 09/29/2023 CBC AUTO W DIFF monocyte# 0.5 cell/ mcL 0.3-0. 8 Not Available [facility] ([facility]) [address] [place], [address], 09/29/2023 15:20:02 09/29/19 24 09/29/2023 CBC AUTO W DIFF eosinophil# 0.2 cell/ mcL 0-0.2 Not Available [facility] ([facility]) [address] [place], [address], 09/29/2023 15:20:02 09/29/19 24 09/29/2023 CBC AUTO W DIFF basophil# 0.1 cell/ mcL 0.0-1. 0 Not Available [facility] ([facility]) [address] , [place], [address], 09/29/2023 15:20:02 09/29/19 24 09/29/2023 CBC AUTO W DIFF immature gramulocytes # 0.04 K/uL Not Available [facility] ([facility]) [address] , [place], [address], 09/29/2023 15:20:02 09/29/19 24 09/29/2023 CBC AUTO W DIFF nucleated red blood cells # 0.00 K/uL Not Available [facility] ([facility]) [address] , [place], [address], 09/29/2023 15:20:02 09/29/19 24 09/29/2023 CBC AUTO W DIFF manual differential NO Not Available [facility] ([facility]) [address] , [place], [address], 09/29/2023 15:20:02 09/29/19 24 09/30/2023 RADHA W/REF GUERO IF POSIT APOLONIA antinuclear Ab, direct NEGATI VE negati ve Perfo rmed at: [facility] [address] [facility] [address] [employer] [address] [place] [address] Lab Direc tor: Montez quiñones PhD, Phone : [phone] Not Available [facility] ([facility]) [address] , [place], [address], 09/30/2023 13:13:06 09/29/19 24 09/30/2023 EBV AB VCA, IGG ebv Ab vca, IgG 180.0 U/mL 0.0-17 .9 high Negat apolonia <18.0 Equiv ocal 18.0 - 21.9 Posit apolonia >21.9 Perfo rmed at: - [facility] [address] [place] [address] Lab Direc tor: Montez quiñones PhD, Phone : [phone] Not Available [facility] ([facility]) [address], [place], [address], 09/30/2023 15:13:41 09/29/19 24 10/02/2023 PLATE LET ANTIB LEVI, SERUM hla class 1 Ab NEGATI VE negati ve Not Available [facility] ([facility]) [address] [facility], [place], [address], 10/02/2023 15:15:49 09/29/19 24 10/02/2023 PLATE LET ANTIB LEVI, SERUM iib / iiia NEGATI VE negati ve Not Available [facility] ([facility]) [address] [facility], [place], [address], 10/02/2023 15:15:49 09/29/19 24 10/02/2023 PLATE LET ANTIB LEVI, SERUM ib / IX NEGATI VE negati ve Not Available [facility] ([facility]) [address] [facility], [place], [address], 10/02/2023 15:15:49 09/29/19 24 10/02/2023 PLATE LET ANTIB LEVI, SERUM ia / iia NEGATI VE negati ve Not Available [facility] ([facility]) [address] [facility], [place], [address], 10/02/2023 15:15:49 09/29/19 24 10/02/2023 PLATE LET ANTIB LEVI, SERUM glycoprotein IV antibody NEGATI VE negati ve Perfo rmed at: - [facility] [place] [address] [place] [address] , [place] [address] Lab Direc tor: Devika ayers MD, Phone : [phone] Not Available [facility] ([facility]) [address] [place], [address], 10/02/2023 15:15:49 09/29/19 24 10/02/2023 ACUTE HEPAT ITIS PANEL hep A Ab, IgM Negati ve negati ve Not Available [facility] ([facility]) [address] [facility], [place], [address], 10/02/2023 15:15:50 09/29/19 24 10/02/2023 ACUTE HEPAT ITIS PANEL HBsAg screen Negati ve negati ve Not Available [facility] ([facility]) [address] [facility], [place], [address], 10/02/2023 15:15:50 09/29/19 24 10/02/2023 ACUTE HEPAT ITIS PANEL hep B core Ab, IgM Negati ve negati ve Not Available [facility] ([facility]) [address] [facility], [place], [address], 10/02/2023 15:15:50 09/29/19 24 10/02/2023 ACUTE HEPAT ITIS PANEL HCV Ab Non Reacti ve non reacti ve Perfo rmed at: - [place] [address] Lab Direc tor: Montez quñiones PhD, Phone : [phone] Not Available [facility] ([facility]) [address] [facility], [place], [address], 10/02/2023 15:15:50 09/29/19 24 10/02/2023 ACUTE HEPAT ITIS PANEL hep A Ab, IgM Negati ve negati ve Not Available [facility] ([facility]) [address] [facility], [place], [address], 10/02/2023 15:15:51 09/29/19 24 10/02/2023 ACUTE HEPAT ITIS PANEL HBsAg screen Negati ve negati ve Not Available [facility] ([facility]) [address] [facility], [place], [address], 10/02/2023 15:15:51 09/29/19 24 10/02/2023 ACUTE HEPAT ITIS PANEL hep B core Ab, IgM Negati ve negati ve Not Available [facility] ([facility]) [address] [facility], [place], [address], 10/02/2023 15:15:51 09/29/19 24 10/02/2023 ACUTE HEPAT ITIS PANEL HCV Ab Non Reacti ve non reacti ve Perfo rmed at: [facility] [address] [facility] [employer] [facility] [place] [place] [id number] Lab Direc tor: Montez quiñones PhD, Phone : [phone] Not Available [facility] ([facility]) [address] [facility], [place], [address], 10/02/2023 15:15:51 09/29/19 24 10/02/2023 ACUTE HEPAT ITIS PANEL interpretati on: Commen t . Not infec chencho with HCV unles s early or acute infec tion is suspe cted (whic h may be delay ed in an immun ocomp romis ed indiv idual ), or other evide nce exist s to indic ate HCV infec tion. [facility]fo rmed at: [facility] [address] [facility] [place] [address] Lab Direc tor: Montez quiñones PhD, Phone : [phone] Not Available [facility] ([facility]) [address] [facility], [place], [address], 10/02/2023 15:15:51 09/29/19 24 10/02/2023 HIV AB/P2 4 AG WITH REFLE X HIV screen 4TH generation wrfx Non Reacti ve non reacti ve HIV Negat apolonia HIV-1 /HIV- 2 antib odies and HIV-1 p24 antig en were NOT detec chencho. There is no labor atory evide nce of HIV infec tion. Perfo rmed at: [facility] [address] [facility] [place] [place] [id number] Lab Direc tor: Montez quiñones PhD, Phone : [phone] Not Available [facility] ([facility]) [address] , [place], [address], 10/02/2023 15:15:52 09/29/19 24 10/02/2023 EBV AB VCA, IGM ebv Ab vca, IgM <36.0 U/mL 0.0-35 .9 Negat apolonia <36.0 Equiv ocal 36.0 - 43.9 Posit apolonia >43.9 Perfo rmed at: - [facility] [address] [place] [address] Lab Direc tor: Montez quiñones PhD, Phone : [phone] Not Available [facility] ([facility]) [address], [place], [address], 10/02/2023 15:15:53 11/17/19 24 11/17/2023 CBC AUTO W DIFF WBC 4.4 K/uL 4.0-10 .5 Not Available [facility] ([facility]) [address], [place], [address], 11/17/2023 12:11:49 11/17/19 24 11/17/2023 CBC AUTO W DIFF RBC 4.0 M/mm3 4.7-6. 1 low Not Available [facility] ([facility]) [address] [place], [address], 11/17/2023 12:11:49 11/17/19 24 11/17/2023 CBC AUTO W DIFF HGB 13.7 gm/dL 13.5-1 8.0 Not Available [facility] ([facility]) [address] [place], [address], 11/17/2023 12:11:49 11/17/19 24 11/17/2023 CBC AUTO W DIFF HCT 40.4 % 42.0-5 2.0 low Not Available [facility] ([facility]) [address] [place], [address], 11/17/2023 12:11:49 11/17/19 24 11/17/2023 CBC AUTO W DIFF MCV 100.5 fL 78-100 high Not Available [facility] ([facility]) [address] , [place], [address], 11/17/2023 12:11:49 11/17/19 24 11/17/2023 CBC AUTO W DIFF MCH 34.1 pg 27-31 high Not Available [facility] ([facility]) [address] , [place], [address], 11/17/2023 12:11:49 11/17/19 24 11/17/2023 CBC AUTO W DIFF MCHC 33.9 g/dL 32-36 Not Available [facility] ([facility]) [address] , [place], [address], 11/17/2023 12:11:49 11/17/19 24 11/17/2023 CBC AUTO W DIFF RDW 12.6 % 11.5-1 4.0 Not Available [facility] ([facility]) [address] , [place], [address], 11/17/2023 12:11:49 11/17/19 24 11/17/2023 CBC AUTO W DIFF platelet count 105 K/uL 150-45 0 low Not Available [facility] ([facility]) [address] , [place], [address], 11/17/2023 12:11:49 11/17/19 24 11/17/2023 CBC AUTO W DIFF MPV 10.2 fL 6-9.5 high Not Available [facility] ([facility]) [address] , [place], [address], 11/17/2023 12:11:49 11/17/19 24 11/17/2023 CBC AUTO W DIFF neutrophil% 59.7 % 43-65 Not Available [facility] ([facility]) [address], [place], [address], 11/17/2023 12:11:49 11/17/19 24 11/17/2023 CBC AUTO W DIFF lymphocyte% 24.1 % 20.5-4 5.5 Not Available [facility] ([facility]) [address], [place], [address], 11/17/2023 12:11:49 11/17/19 24 11/17/2023 CBC AUTO W DIFF monocyte% 10.5 % 5.5-11 .7 Not Available [facility] ([facility]) [address], [place], [address], 11/17/2023 12:11:49 11/17/19 24 11/17/2023 CBC AUTO W DIFF eosinophil% 4.1 % 0.9-2. 9 high Not Available [facility] ([facility]) [address] [place], [address], 11/17/2023 12:11:49 11/17/19 24 11/17/2023 CBC AUTO W DIFF basophil% 0.9 % 0.2-1. 0 Not Available [facility] ([facility]) [address], [place], [address], 11/17/2023 12:11:49 11/17/19 24 11/17/2023 CBC AUTO W DIFF immature granulocytes % 0.7 % 0.0-0. 8 Not Available [facility] ([facility]) [address] [place], [address], 11/17/2023 12:11:49 11/17/19 24 11/17/2023 CBC AUTO W DIFF nucleated red blood cells % 0.0 % Not Available [facility] ([facility]) [address] [place], [address], 11/17/2023 12:11:49 11/17/19 24 11/17/2023 CBC AUTO W DIFF neutrophil# 2.6 K/uL 2.2-4. 8 Not Available [facility] ([facility]) [address], [place], [address], 11/17/2023 12:11:49 11/17/19 24 11/17/2023 CBC AUTO W DIFF lymphocyte# 1.1 cell/ mcL 1.3-2. 9 low Not Available [facility] ([facility]) [address], [place], [address], 11/17/2023 12:11:49 11/17/19 24 11/17/2023 CBC AUTO W DIFF monocyte# 0.5 cell/ mcL 0.3-0. 8 Not Available [facility] ([facility]) [address], [place], [address], 11/17/2023 12:11:49 11/17/19 24 11/17/2023 CBC AUTO W DIFF eosinophil# 0.2 cell/ mcL 0-0.2 Not Available [facility] ([facility]) [address] [place], [address], 11/17/2023 12:11:49 11/17/19 24 11/17/2023 CBC AUTO W DIFF basophil# 0.0 cell/ mcL 0.0-1. 0 Not Available [facility] ([facility]) [address] [place], [address], 11/17/2023 12:11:49 11/17/19 24 11/17/2023 CBC AUTO W DIFF immature gramulocytes # 0.03 K/uL Not Available [facility] ([facility]) [address] [place], [address], 11/17/2023 12:11:49 11/17/19 24 11/17/2023 CBC AUTO W DIFF nucleated red blood cells # 0.00 K/uL Not Available [facility] ([facility]) [address] [place], [address], 11/17/2023 12:11:49 11/17/19 24 11/17/2023 CBC AUTO W DIFF manual differential NO Not Available [facility] ([facility]) [address], [place], [address], 11/17/2023 12:11:49 11/17/19 24 11/17/2023 PT (PROT HROMB IN TIME) W INR prothrombin time 10.9 secon ds 9.3-11 .4 Not Available [facility] ([facility]) [address], [place], [address], 11/17/2023 12:25:05 11/17/19 24 11/17/2023 PT (PROT HROMB IN TIME) W INR INR 1.0 ratio 0.97-1 .05 INR is inten ded to be used ONLY for patie nts on stabl e oral antic oagul ant thera py. Thera peuti c Range s: 2.0-3 .0 Usual Thera peuti c Range 2.5-3 .5 For patie nts with histo ry of Multi ple Deep Vein Throm bus or Mecha nical Heart Valve s Not Available [facility] ([facility]) [address], [place], [address], 11/17/2023 12:25:05 11/17/19 24 11/17/2023 PTT (PART IAL THROM B TIME) PTT (partial thrombin time) 27.1 secon ds 24.5-3 2.8 Not Available [facility] ([facility]) [address], [place], [address], 11/17/2023 12:25:06 11/17/19 24 11/17/2023 IRON STUDY (IRON /TIBC /%SAT ) iron 93 mcg/m L 40-180 Not Available [facility] ([facility]) [address], [place], [address], 11/17/2023 12:42:45 11/17/19 24 11/17/2023 IRON STUDY (IRON /TIBC /%SAT ) TIBC 241 mcg/d L 250-45 0 low Not Available [facility] ([facility]) [address], [place], [address], 11/17/2023 12:42:45 11/17/19 24 11/17/2023 IRON STUDY (IRON /TIBC /%SAT ) %sat 39 15-55 Not Available [facility] ([facility]) [address] , [place], [address], 11/17/2023 12:42:45 11/17/19 24 11/17/2023 COMP METAB OLIC PANEL sodium 142 mmol/ L 136-14 5 Not Available [facility] ([facility]) [address] , [place], [address], 11/17/2023 13:08:11 11/17/19 24 11/17/2023 COMP METAB OLIC PANEL potassium 3.7 mmol/ L 3.6-5. 0 Not Available [facility] ([facility]) [address] , [place], [address], 11/17/2023 13:08:11 11/17/19 24 11/17/2023 COMP METAB OLIC PANEL chloride 106 mmol/ L 98-107 Not Available [facility] ([facility]) [address] , [place], [address], 11/17/2023 13:08:11 11/17/19 24 11/17/2023 COMP METAB OLIC PANEL carbon dioxide 26.3 mmol/ L 21.0-3 2.0 Not Available [facility] ([facility]) [address] [place], [address], 11/17/2023 13:08:11 11/17/19 24 11/17/2023 COMP METAB OLIC PANEL anion gap 13.4 Not Available [facility] ([facility]) [address] , [place], [address], 11/17/2023 13:08:11 11/17/19 24 11/17/2023 COMP METAB OLIC PANEL glucose 159 mg/dL 70-120 high Not Available [facility] ([facility]) [address] , [place], [address], 11/17/2023 13:08:11 11/17/19 24 11/17/2023 COMP METAB OLIC PANEL BUN 16 mg/dL 7-18 Not Available [facility] ([facility]) [address] , [place], [address], 11/17/2023 13:08:11 11/17/19 24 11/17/2023 COMP METAB OLIC PANEL creatinine 1.0 mg/dL 0.6-1. 3 Not Available [facility] ([facility]) [address] , [place], [address], 11/17/2023 13:08:11 11/17/19 24 11/17/2023 COMP METAB OLIC PANEL glomerular filtration rate TNP mlper min 60- TEST NOT PERFO RMED GFR has only been valid ated from 18 to 70 years of age. Not Available [facility] ([facility]) [address] , [place], [address], 11/17/2023 13:08:11 11/17/19 24 11/17/2023 COMP METAB OLIC PANEL total protein 7.3 g/dL 6.4-8. 2 Not Available [facility] ([facility]) [address] , [place], [address], 11/17/2023 13:08:11 11/17/19 24 11/17/2023 COMP METAB OLIC PANEL albumin 3.5 g/dL 3.4-5. 0 Not Available [facility] ([facility]) [address], [place], [address], 11/17/2023 13:08:11 11/17/19 24 11/17/2023 COMP METAB OLIC PANEL globulin 3.8 Not Available [facility] ([facility]) [address], [place], [address], 11/17/2023 13:08:11 11/17/19 24 11/17/2023 COMP METAB OLIC PANEL alb/glob ratio 0.9 0.7-2 Not Available [facility] ([facility]) [address], [place], [address], 11/17/2023 13:08:11 11/17/19 24 11/17/2023 COMP METAB OLIC PANEL calcium 8.6 mg/dL 8.5-10 .5 Not Available [facility] ([facility]) [address] , [place], [address], 11/17/2023 13:08:11 11/17/19 24 11/17/2023 COMP METAB OLIC PANEL bilirubin total 1.20 mg/dL 0.10-1 .00 high Not Available [facility] ([facility]) [address] , [place], [address], 11/17/2023 13:08:11 11/17/19 24 11/17/2023 COMP METAB OLIC PANEL AST (SGOT) 15 U/L 0-37 Not Available [facility] ([facility]) [address] , [place], [address], 11/17/2023 13:08:11 11/17/19 24 11/17/2023 COMP METAB OLIC PANEL ALT (SGPT) 18 U/L 0-65 Not Available [facility] ([facility]) [address] , [place], [address], 11/17/2023 13:08:11 11/17/19 24 11/17/2023 COMP METAB OLIC PANEL alk phosphatase 79 U/L 46-116 Not Available [facility] ([facility]) [address], [place], [address], 11/17/2023 13:08:11 11/17/19 24 11/17/2023 THYRO ID STIMU LATIN G HORMO NE thyroid stim hormone 2.28 mIU/L 0.36-3 .74 Not Available [facility] ([facility]) [address], [place], [address], 11/17/2023 13:09:15 11/17/19 24 11/17/2023 KALPANA TIN ferritin, serum 413 NG/mL 3-244 high Not Available [facility] ([facility]) [address], [place], [address], 11/17/2023 13:09:16 11/17/19 24 11/17/2023 VITAM IN B12 vitamin B12 203 pg/mL 193-98 6 *Note : Refer jasmyn Green. New Test Metho d in use. Not Available [facility] ([facility]) [address], [place], [address], 11/17/2023 13:17:56 11/17/19 24 11/17/2023 FOLIC ACID folate (folic acid), serum 11.3 NG/mL 8.6-58 .9 *Note : Refer jasmyn [facility] susu ortega. New Test Metho d in use. Not Available [facility] ([facility]) [address], [place], [address], 11/17/2023 13:17:57 11/17/19 24 11/21/2023 METHY LMALO LB ACID QUANT methylmaloni c acid, serum 269 nmol/ L 0-378 Speci men Comme nt: Test( s) 68895 7-Met hylma lonic Acid, Serum Speci men Comme nt: was devel oped and its perfo rmanc e kianna cte risti cs Speci men Comme nt: deter mined by [employer]. It has not been kristopher ared or appro janette Speci men Comme nt: by the Food and Drug Admin machelle hough. Perfo rmed at: - [facility] [place] [address] , [place] [address] Lab Direc tor: Devika ayers MD, Phone : [phone] Not Available [facility] ([facility]) [address] [facility], [place], [address], 11/21/2023 15:14:20 Result Notes None recorded. Problems Name Problem SNOMED Code Status Onset Date Resolution Date Notes Provider Name and Address Organization Details Recorded Time Sleep apnea [id number] Active 024 ANTONIO SECANTHONY null, [place] - [facility] - [place] & [place] 09/29/2023 09:42:14 Problem Notes None recorded. Procedures Surgical History Date Name Laterality Status Provider Name and Address Organization Details Recorded Time 09/29/19 24 Venipuncture completed ANTONIO SECORD [place] - [facility] & [place] 09/29/2023 10:29:02 hernia repair completed ANTONIO SECORD [place] [facility] [place] & [place] 09/29/2023 09:39:10 kidney stone analysis completed ANTONIO SECORD [place] - [facility] & [place] 09/29/2023 09:40:06 Imaging Results None recorded. Procedure Notes None recorded. Medical Equipment None Reported. Allergies No known drug allergies Medications Name Sig Start Date Stop Date Status Note LastModified by Organization Details LastModified Time doxycycline hyclate 100 mg capsule TAKE 1 CAPSULE BY MOUTH TWICE DAILY FOR 10 DAYS 09/28 completed Not Available Not Available Not Available clindamycin HCl 300 mg capsule TAKE 1 CAPSULE BY MOUTH THREE TIMES DAILY FOR 10 DAYS active Not Available Not Available No t Available hydrocodone 5 mg-acetamin ophen 325 mg tablet TAKE 1 TABLET BY MOUTH EVERY 12 HOURS NEEDED 09/28 completed Not Available Not Available Not Available prednisone 20 mg tablet TAKE 3 TABLETS BY MOUTH ONCE DAILY FOR 2 DAYS, THEN TAKE 2 TABLETS ONCE DAILY FOR 2 DAYS, THEN TAKE 1 ONCE DAILY FOR 1 DAY 09/28 completed Not Available Not Available Not Available clobetasol 0.05 % topical cream APPLY CREAM TOPICALLY TO AFFECTED AREA TWICE DAILY FOR UP TO 2 WEEKS. TAKE ONE WEEK BREAK AND REPEAT NEEDED UNTIL CLEAR. DO NOT USE ON FACE active Not Available Not Available No t Available cyanocobala min (vit B-12) 1,000 mcg tablet Take 1 tablet every month by oral route for 30 days. 2023 active Not Available Not Available Not Avai lable ciprofloxac in 500 mg tablet TAKE 1 TABLET BY MOUTH EVERY 12 HOURS FOR 3 DAYS active Not Available Not Available No t Available meloxicam 7.5 mg tablet TAKE 1 TABLET BY MOUTH ONCE DAILY active Not Available Not Available No t Available triamcinolo ne acetonide 0.1 % topical ointment APPLY TOPICALLY 3 TIMES DAILY FOR 7 DAYS active Not Available Not Available No t Available cephalexin 500 mg tablet TAKE 1 TABLET BY MOUTH 4 TIMES DAILY FOR 7 DAYS 09/28 completed Not Available Not Available Not Available levothyroxi ne 200 mcg tablet TAKE 1 TABLET BY MOUTH ONCE DAILY active Not Available Not Available No t Available mupirocin 2 % topical ointment APPLY OINTMENT TOPICALLY TO AFFECTED AREA THREE TIMES DAILY active Not Available Not Available No t Available fluticasone propionate 50 mcg/actuati on nasal spray,suspe nsion 09/28 completed Not Available Not Available Not Available amoxicillin 875 mg-potassiu m clavulanate 125 mg tablet TAKE 1 TABLET BY MOUTH EVERY 12 HOURS FOR 10 DAYS 09/28 completed Not Available Not Available Not Available levocetiriz ine 5 mg tablet 09/28 completed Not Available Not Available Not Available Tylenol 325 mg capsule Take by oral route. active Not Available Not Available No t Available Vitals Date Recorded Body height Body mass index (BMI) Body weight Body temperature Oxygen saturation Oxygen saturation in Arterial blood by Pulse oximetry Heart rate Systolic blood pressure Diastolic blood pressure Provider Name and Address Organization Details Last Updated DateTime 4 167.64 cm 52.4 kg/m2 309538. 72 g 97.7 [degF] 98 % 98 % 57 /min 148 mm[Hg] 78 mm[Hg] ANTONIO LEMUS [place] [facility] & [place] 4 09:35:04 Date Recorded Body height Body mass index (BMI) Body weight Body temperature Heart rate Oxygen saturation Oxygen saturation in Arterial blood by Pulse oximetry Systolic blood pressure Diastolic blood pressure Provider Name and Address Organization Details Last Updated DateTime 4 167.64 cm 51.9 kg/m2 239414. 23 g 97.8 [degF] 76 /min 97 % 97 % 129 mm[Hg] 74 mm[Hg] Marion Valenzuela [facility] & [place] 09:45:33 Social History Question Answer Notes LastModified by Organizat ion Details LastModified Time Tobacco Smoking Status Never Smoker ANTONIO torres, MEG [facility] & [place] 09/29/2023 09:38:45 What Is Your Level Of Alcohol Consumption? None Information not available 09/29/2023 What Type Of Diet Are You Following? REGULAR Information not available 09/29/2023 Do You Use Any Illicit Or Recreational Drugs? No Information not available 09/29/2023 Do You Or Have You Ever Used Any Other Forms Of Tobacco Or Nicotine? No Information not available 09/29/2023 Sex: Unknown Functional Status None recorded. Mental Status None recorded. Family History Nothing Reported. Medical History Condition Response Diabetes N Acid Reflux (GERD) N Bladder or Kidney Problems Y Arthritis Y Hypothyroidism Y Past Encounters Encounter ID Performer Location Encounter Start Date Encounter Closed Date Diagnosis/Indication Diagnosis SNOMED-CT Code Diagnosis ICD10 Code Diagnosis Note [id number] Viky Lynch PA-C [facility] [address] [facility] [address] [place] [address] 09/29/2023 09:18:15 09/29/2023 10:17:41 Thrombocytopenic disorder 866015615 D69.6 Patient presented to [facility] ED on August 24, 2023 with cellulitis of the lower extremity. Patient with chronic venous insufficie ncy and recurrent cellulitis . He has been hospitaliz ed for nephrolith iasis 4 times in 2021. While patient was in the ED on August 24, 2023 he had labs performed with normal white blood cell count at 6.2. Hemoglobin 13.4 and hematocrit 39.7. Platelet count 87298. Normal differenti al. No mention of platelet clumping. Patient denies any bleeding. He is not on any anticoagul ants. He does bruise easily on the upper extremitie s. Denies any unintentio nal weight loss. Denies any liver disease. He does not smoke or drink alcohol. Denies any family history of blood disorders or malignancy . Will order labs for further evaluation of thrombocyt openia. Will follow up with further recommenda tions. [id number] Arnold Glynn MD [facility] [address] [place] [address] 11/17/2023 09:31:02 11/17/2023 10:36:36 Thrombocytopenic disorder 798520145 D69.6 Patient presented to [facility] ED on August 24, 2023 with cellulitis of the lower extremity. Patient with chronic venous insufficie ncy and recurrent cellulitis . He has been hospitaliz ed for nephrolith iasis 4 times in 2021. While patient was in the ED on August 24, 2023 he had labs performed with normal white blood cell count at 6.2. Hemoglobin 13.4 and hematocrit 39.7. Platelet count 26555. Normal differenti al. No mention of platelet clumping. Patient denies any bleeding. He is not on any anticoagul ants. He does bruise easily on the upper extremitie s. Denies any unintentio nal weight loss. Denies any liver disease. He does not smoke or drink alcohol. Denies any family history of blood disorders or malignancy . Will order labs for further evaluation of thrombocyt openia. Will follow up with further recommenda tions. Macrocytosis 705393610 D 75.89 Labs on September 29, 2023 with white blood cell count 4.3. Red blood count 3.9. Hemoglobin 13.5 and hematocrit 40.5. MCV 103.1. Platelet count 04653. Mean platelet volume elevated at 11.8. Total bili li above reference range [id number] 36520 R17 Labs on September 29, 2023 with Bilirubin 1.2. Easy bruising 446047098 R58 Mild increase in bruising. Will follow up additional labs. Obesity 490101392 E66.9 Patient with obesity. Would consider ultrasound liver and spleen to assess for fatty liver changes. Venous sta sis edema of bilateral lower limbs [id number] I87.2 Patient with bilateral lower extremity venous stasis changes. Discussed evaluation with vascular surgery. No signs of infection currently. Health Concerns Section Related Observation LastModified by Organization Detai ls LastModified Time None Recorded Concern Status LastModified by Organization Details LastModified Time None Recorded Advance Directives Directive None Recorded Payers Encounter Date Sequence Insurance Name Policy Number Policy Lazcano Covered Member ID Lazcano Member ID Guarantor Name 09/29/2023 1 [place]AC[place] H[place] [id number] Beth Sloanatt [id number] Beth Bhandari Gloria 11/17/2023 1 [place] [id number] Beth Magana Gloria [id number] Beth Gene Gloria Notes Date Note Type Note Provider Name and Address Organization Details Recorded Time 09/29/2023 text/html 78-year-old male presents for evaluation thrombocytopenia. Patient presented to [facility] ED on August 24, 2023 with cellulitis of the lower extremity. Patient with chronic venous insufficiency and recurrent cellulitis. He has been hospitalized for nephrolithiasis 4 times in 2021. While patient was in the ED on August 24, 2023 he had labs performed with normal white blood cell count at 6.2. Hemoglobin 13.4 and hematocrit 39.7. Platelet count 13354. Normal differential. No mention of platelet clumping. Patient denies any bleeding. He is not on any anticoagulants. He does bruise easily on the upper extremities. Denies any unintentional weight loss. Denies any liver disease. He does not smoke or drink alcohol. Denies any family history of blood disorders or malignancy. Will order labs for further evaluation of thrombocytopenia. Will follow up with further recommendations. Viky Lynch PA-C [id number] , [place], [address], [place] & [place] 09/29/2023 11:03:21 11/17/2023 text/html 78-year-old male returns for evaluation thrombocytopenia. Patient presented to [facility] ED on August 24, 2023 with cellulitis of the lower extremity. Patient with chronic venous insufficiency and recurrent cellulitis. He has been hospitalized for nephrolithiasis 4 times in 2021. While patient was in the ED on August 24, 2023 he had labs performed with normal white blood cell count at 6.2. Hemoglobin 13.4 and hematocrit 39.7. Platelet count 80,000. Normal differential. No mention of platelet clumping. Patient denies any bleeding. He is not on any anticoagulants. He does bruise easily on the upper extremities. Denies any unintentional weight loss. Denies any liver disease. He does not smoke or drink alcohol. Denies any family history of blood disorders or malignancy. Labs on September 29, 2023 with white blood cell count 4.3. Red blood count 3.9. Hemoglobin 13.5 and hematocrit 40.5. MCV 103.1. Platelet count 53841. Mean platelet volume elevated at 11.8. Immature granulocytes 0.9%. Absolute count 0.04. Absolute neutrophil count 2.3. Creatinine 1.0. Total protein 7.3 albumin 3.7. Calcium 8.4. Bilirubin 1.2. LDH normal. RADHA negative. Platelet antibody negative. HIV negative. Acute hepatitis panel negative. EBV IgG level elevated however normal EBV IgM. Patient returns on November 17, 2023. Discussed repeat labs today. Will follow up additional labs. Improvement in platelet count since initial labs at time of cellulitis. Would favor observation. Will follow-up additional testing today. Arnold Glynn MD [address], [place], [address], [place] [facility] [place] & [place] 11/17/2023 12:45:46
--- NOTE | 2024-08-21 12:31 | PC.NURSE ---
Addendum entered by Xochitl Amato, EMT 08/21/24 12:36: Dr Frye is the ortho dr. Original Note: called [facility] for pt transfer due to a fracture of intertrochanteric of the right formal per Dr Major. [facility] advised they currently have no bed but will notife ortho dr donor services technician and place pt on list.
[2024-08-21] MEDS: OXYCODONE 5MG IMMEDIATE RELEASE TABLET 5 MG PO (13:03)
--- NOTE | 2024-08-21 13:05 | PC.NURSE ---
Dr Major s/w Dr Torres Ortho @ [facility], and he accepts pt but hospitalist will call for admission. No bed assignment available until after 2pm d/t d/c times.
--- NOTE | 2024-08-21 13:12 | PC.NURSE ---
Dr Major s/w [facility] Hospitalist and Dr Cleveland accepts pt. They will know bed assignment after 2p. Pt and family updating on this.
--- NOTE | 2024-08-21 14:52 | PC.NURSE ---
called report to Jordon PETERS at [facility] on 3G/H
== END 2024-08-21 15:25 ==
PROVIDERS: Emergency Provider Student in an Organized Health Care Education/Training Program; PCP Nurse Practitioner Family
DX: S72.141A Displaced intertrochanteric fracture of right femur, initial encounter for closed fracture (principal); W19.XXXA Unspecified fall, initial encounter
CPT/HCPCS: 70450; 72125; 73502; 73552; 73562; 96374; 96375; 99285; J2270; J2405

== ENCOUNTER 2024-10-20 13:58 | Outpatient (CLI) | payer MEDICARE, SELFPAY ==
--- OUTSIDE RECORDS SUMMARY | 2024-10-20 14:00 | XMS_ITS | Clinical Summary ---
Author Organization [facility] Address [address] [place] [address] Phone Care Team Providers Care Master Control Operator Name Role Phone Naye Colon MD [ ] Conditions or Problems Problem Name Problem Code Onset Date Status Entry Date Provider Comment Standard Description Annotate BMI 40.0-44.9 Z68.41 (ICD-10-CM ) 06/17 Active 06/18 W Body mass index [BMI] 40.0-44.9, adult SERRATIA B96.89 (ICD-10-CM ) 06/17 Active 06/18 Yasmeen W Other specified bacterial agents as the cause of diseases classified elsewhere MULTIPLE OPEN WOUNDS-BLE/COM PLICATES S71.029A (ICD-10-CM ) 06/17 Active 06/18 Yasmeen W Laceration with foreign body, unspecified hip, initial encounter BOIL OF LEFT ANKLE L02.439 (ICD-10-CM ) 06/12 Inactive 06/12 Yasmeen W Carbuncle of limb, unspecified ULCER OF LEFT ANKLE 712214737 (SNOMED CT) 06/12 Inactive 06/12 Yasmeen W Ankle ulcer LEFT FOOT CELLULITIS 682.7 (ICD-9-CM) 06/12 Inactive 06/12 Yasmeen W Cellulitis and abscess of foot, except toes BLE STASIS DERMATITIS I83.10 (ICD-10-CM ) 06/15 Active 06/18 Yasmeen W 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 OTHER NONINFECTIOUS LYMPHEDEMA 080278989 (SNOMED CT) 06/15 Active 06/16 Naye Colon MD Lymphedema MORBID OBESITY 357626357 (SNOMED CT) 06/15 Active 06/15 Naye Colon MD Morbid obesity BOIL OF LEFT ANKLE L02.439 (ICD-10-CM ) 06/12 Removed 06/12 Rasheedadimple Wheeler Carbuncle of limb, unspecified ULCER OF LEFT ANKLE 069004358 (SNOMED CT) 06/12 Removed 06/12 Rasheedadimple Wheeler Ankle ulcer LLE CELLULITIS 682.6 (ICD-9-CM) 06/12 Active 06/12 Rasheedadimple Wheeler Cellulitis and abscess of leg, except foot LEFT FOOT CELLULITIS 682.7 (ICD-9-CM) 06/12 Removed 06/12 Rasheedadimple Wheeler Cellulitis and abscess of foot, except toes Medications Medication Instructions Start Date Stop Date Generic Name NDC Provider MUPIROCIN 2 % OINT apply to ulcers daily MUPIROCIN [id number] Naye Colon MD CEFTRIAXONE SODIUM 2 GM SOLR Infuse 2g IV qd INPAT CEFTRIAXONE SODIUM [id number] Janette Florez RN SULFAMETHOXAZOL E-TRIMETHOPRIM 400-80 MG TABS 1 bid SULFAMETHOXAZOLE -TRIMETHOPRIM [id number] Naye Colon MD CEPHALEXIN CAPS CEPHALEXIN CAPS [id number] Naye Colon MD FLAGYL CAPSULE METRONIDAZOLE CAPS [id number] Naye Colon MD CEFTRIAXONE SODIUM 2 GM SOLR Infuse 2g IV qd INPAT CEFTRIAXONE SODIUM [id number] Leeanne Reinoso RN CALCIUM + D TABS CALCIUM CARBONATE-VITAMI N D TABS [id number] Adela G VITAMIN C CAPS ASCORBIC ACID CAPS [id number] Adela G FLAGYL CAPSULE METRONIDAZOLE CAPS [id number] Adela G CEPHALEXIN CAPS CEPHALEXIN CAPS [id number] Adela G NAPROSYN TABS NAPROXEN TABS 36686172991 Adela Magana LEVOTHROID TABS LEVOTHYROXINE SODIUM TABS [id number] Adela Magana Medications Administered No information available. Allergies, Adverse Reactions, Alerts No information available. 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 Lab Report: Culture WOUND wi th Gram Stain CULTURE Specimen/Sourc e: Wound/Leg culture, comment Lab Report: Basic Metabolic Panel ANIONGAP 4 mmol/L 3-11 N anion gap, s macho GFR EST 119 mL/min estimated genna merular filtration rate CALCIUM 9.4 mg/dL 8.7-10.4 N Calcium [Moles/volume] in Serum or Plasma CO2 32 mmol/L 20-31 H Carbon dioxid e, total [Moles/volume] in Venous blood CHLORIDE 108 mmol/L 98-107 H Chloride [Moles/volume] in Serum or Plasma POTASSIUM 4.3 mmol/L 3.4-5.4 N Potassium [Moles/volume] in Serum or Plasma SODIUM 144 mmol/L 136-145 N Sodium [Moles /volume] in Serum or Plasma CREATININE 0.7 mg/dL 0.6-1.3 N Creatinine [Mass/volume] in Serum or Plasma BUN 15 mg/dL 6-20 N Urea nitrogen [Mass/volume] in Serum or Plasma GLUCOSE SER 91 mg/dL 70-100 N Glucose [ Mass/volume] in Serum or Plasma Office Visit: 11 MEDS REVIEW Done Documenta tion of current medications (procedure) Plan of Care Type Date Detail Pending order Redress Wound Pending order Redress Wound Pending order Wound Care Refer [facility] Pending order Discontinue IV a ntibiotics Pending order STAT Labs Pending order BMP Pending order Redress Wound Pending order Redress Wound Pending order Ceftriaxone Pending order Wound Culture an d Sensitivity Pending order Wound Care Refer [facility] Procedures Code Procedure Name Date Entry Date CPT-WC Redress Wound CPT-WC Redress Wound CPT-WCR Wound Care Referral [facility] 06/22 CPT-DC Discontinue IV antibiotics 2 CPT-sl STAT Labs CPT-99963 BMP CPT-WC Redress Wound CPT-WCR Wound Care Referral [facility] 06/15 CPT-WC Redress Wound CPT-J0696 Ceftriaxone CPT-43954 Wound Culture and Sensitivity Vital Signs Date Name Value Unit Description BMI (Body Mass Index) 40.67 kg/m2 Bod y Mass Index (Ratio) Body Temperature 98.3 [degF] temperat ure E&M BP Diastolic 66 mm[Hg] blood pressu re, diastolic BP Systolic 104 mm[Hg] blood pressur e, systolic Heart Rate 68 /min pulse rate Height 72 [in_us] height E&M Respiratory Rate 12 /min respirat ory rate E&M Weight Measured 298.8 [lb_av] weight E& M Weight Measured 298.8 [lb_av] weight E& M Immunizations No information available. Advance Directives No information available.
--- OUTSIDE RECORDS SUMMARY | 2024-10-20 14:01 | XMS_ITS | Encounter Summary ---
Author Organization Healthcare Address [address] [place] [address] Care Team Providers Care Icu Staff Nurse Name Role Phone Unavailable Primary Care Provider Unavailabl e Encounter Details Date Type Department Care Team (Late st Contact Info) Description 08/21/2024 Orders Only External Location [address] [place] [address] Lm Major, [address] [place] [address] Social History Tobacco Use Types Packs/Day Years Used Date Smoking Tobacco: Never Assessed Sex and Gender Information Value Date Recorded Sex Assigned at Not on file Legal Sex Male 8:04 AM EDT Gender Identity Not on file Sexual Orientation Not on file documented as of this encounter Plan of Treatment Not on file documented as of this encounter Procedures Procedure Name Priority Date/Time Associated Diagnosis Comments XR MSK OUTSIDE IMAGES 08/21/2024 11:31 AM EDT documented in this encounter Results * XR MSK OUTSIDE IMAGES (08/21/2024 11:31 AM EDT) Anatomical Region Laterality Modality Radiographic Margo ging 08/21/2024 11:3 1 AM EDT Lm Major DO IMG XR PROCEDURES Final Resu lt documented in this encounter Visit Diagnoses Not on filedocumented in this encounter
--- OUTSIDE RECORDS SUMMARY | 2024-10-20 14:01 | XMS_ITS | Encounter Summary ---
Author Organization [facility] Address [address] [place] [address] Care Team Providers Care Emt/Paramedic Name Role Phone Unavailable Primary Care Provider Unavailabl e Encounter Details Date Type Department Care Team (Late st Contact Info) Description 08/21/2024 Orders Only External Location [address] [place] [address] Lm Major, [address] [place] [address] Social History Tobacco Use Types [...]
--- OUTSIDE RECORDS SUMMARY | 2024-10-20 14:01 | XMS_ITS | Encounter Summary ---
Author Organization [facility] Address [address] [place] [address] Care Team Providers Care Lapidarist Name Role Phone Unavailable Primary Care Provider Unavailabl e Encounter Details Date Type Department Care Team (Late st Contact Info) Description 08/21/2024 Orders Only External Location [address] [place] [address] Lm Major, [address] [place] [address] Social History Tobacco Use Types [...]
--- OUTSIDE RECORDS SUMMARY | 2024-10-20 14:01 | XMS_ITS | Clinical Summary ---
Author Organization [facility] Address [address] [place] [address] Care Team Providers Care Graduate Research Assistant Name Role Phone Unavailable Primary Care Provider Unavailabl e Encounters Date Type Department Care Team Description 08/21/2024 Orders Only External Location [address] [place] [address] Lm Major, 08/21/2024 Orders Only External Location [address] [place] [address] Lm Major, 08/21/2024 Orders Only External Location [address] [place] [address] Lm Major, from Last 3 Months Social History Tobacco Use Types Packs/Day Years Used Date Smoking Tobacco: Never Assessed Sex and Gender Information Value Date Recorded Sex Assigned at Not on file Legal Sex Male 8:04 AM EDT Gender Identity Not on file Sexual Orientation Not on file Plan of Treatment Health Maintenance Due Date Last Done Comments [facility]-Depression Screening 1944 [facility]-Infant/Child/Adol SDOH Screenings 1944 [facility]- SDOH Screenings 1962 [facility]-Adult SDOH Screenings 1962 [facility]-DTaP,Tdap,and Td Vaccine s (1 - Tdap) 1963 [facility]-Pneumococcal Vaccine: 50 + Years (1 of 1 - PCV) 1994 [facility]-Zoster Vaccines (1 of 2) 1994 [facility]-RSV Vaccine: 60+ Years o r (1 - 1-dose 75+ series) 2019 [id number]-MUKTZ-25 Vaccine (1 - 20 24-25 season) 2023 [facility]-Influenza Vaccine (Seaso n Ended) 2024 HPV Vaccines Aged Out No longer eligi ble based on patient's age to complete this topic [facility]-HIB Vaccines Aged Out No longer e ligible based on patient's age to complete this topic [facility]-Hepatitis A Vaccines Aged Out No longer eligible based on patient's age to complete this topic [facility]-IPV Vaccines Aged Out No longer e ligible based on patient's age to complete this topic [facility]-Rotavirus Vaccines Aged Out No lo nger eligible based on patient's age to complete this topic Procedures Procedure Name Priority Date/Time Associated Diagnosis Comments XR MSK OUTSIDE IMAGES 08/21/2024 11:31 AM EDT XR MSK OUTSIDE IMAGES 08/21/2024 11:31 AM EDT XR MSK OUTSIDE IMAGES 08/21/2024 11:31 AM EDT from Last 3 Months Results * XR MSK OUTSIDE IMAGES (08/21/2024 11:31 AM EDT) Only the most recent of3 resultswithin the time period is included. Anatomical Region Laterality Modality Radiographic Margo ging 08/21/2024 11:3 1 AM EDT Lm Major DO IMG XR PROCEDURES Final Resu lt from Last 3 Months
[2024-10-20 14:47] LABS: Hematocrit 38.6 % (42.0-52.0); Hemoglobin 12.4 g/dL (14.1-18.0); Immature Granulocytes % 1.2 %; Mean Corpuscular HGB Conc 32.1 g/dL (31.8-35.4); Mean Corpuscular Hemoglobin 33.0 pg (27.0-31.2); Mean Corpuscular Volume 102.7 fl (80-94); Nucleated Red Blood Cells % 0 %; Platelet Count 118 K/mm3 (142-424); Red Blood Count 3.76 M/mm3 (4.60-6.20); Red Cell Distribution Width-SD 48.6 fL; White Blood Count 5.0 K/mm3 (4.8-10.8)
[2024-10-20 15:29] LABS: Anion Gap 12.7 mEq/L (5-15); Blood Urea Nitrogen 11 mg/dl (9-20); Calcium 9.3 mg/dl (8.4-10.2); Carbon Dioxide 31 mmol/L (22.0-30.0); Chloride 99 mmol/L (98-107); Creatinine,Serum 0.90 mg/dl (0.66-1.25); Estimated Glomerular Filt Rate 81 ml/min (>60); GFR (African American) 98 ML/MIN (>60); Glucose 114 mg/dl (74-100); Potassium 4.7 mmoL/L (3.5-5.1); Sodium 138 mmol/L (136-145)
== END 2024-10-20 23:59 | disposition home or self-care (01) ==
LOC: LAB 13:59
PROVIDERS: PCP Nurse Practitioner Family; Visit Provider Surgery
DX: K61.0 Anal abscess (principal)
CPT/HCPCS: 36415; 80048; 85025

== ENCOUNTER 2024-11-05 12:39 | Outpatient (CLI) | payer MEDICARE, SELFPAY ==
--- OUTSIDE RECORDS SUMMARY | 2024-09-12 11:19 | XMS_ITS | Summary of Care ---
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 Name Role Phone mW Tobias Primary Care Physician Unavailab le Encounter 08/26/24 - 09/12/24 [facility] [address] [place] [address] Discharge Disposition: 06H Home with Home Health Care Attending Physician: Maria Antonia GROSS, [place] Admitting Physician: Maria Antonia GROSS, [place] Referring Physician: Rodney Petersen Allergies, Adverse Reactions, Alerts Substance Criticality Severity Reaction Reaction Severity Status No Known Allergies A ctive Medications aspirin 81 mg oral delayed release tablet 81 mg, = 1 tab, Indication: Thrombosis prophylaxis Tab-EC, Oral, BID, 28 tab, 0 Refill(s), Route toPharmacy Electronically, [facility], 183, 09/12/24 6:57:00 EDT, Height/Length Dosing, cm,136.3, 09/12/24 6:57:00 EDT, Weight Dosing, kg Start Date: 09/12/24 Stop Date: 09/26/24 Status: Ordered cyanocobalamin 1000 mcg oral tablet 1,000 mcg = 1 tab, Tab, Oral, Daily, 30 tab, 0 Refill(s) Start Date: 08/27/24 Status: Ordered levothyroxine 200 mcg (0.2 mg) oral tablet 200 mcg = 1 tab, Tab, Oral, Daily Start Date: 08/26/24 Status: Ordered levothyroxine 25 mcg (0.025 mg) oral tablet 25 mcg = 1 tab, Tab, Oral, Daily Start Date: 08/26/24 Status: Ordered polyethylene glycol 3350 17 gm, Oral, Daily PRN, Constipation Start Date: 08/26/24 Status: Ordered tamsulosin 0.4 mg oral capsule 0.4 mg = 1 cap, Cap, Oral, QHS, 30 cap, 0 Refill(s), Route to Pharmacy Electronically, [facility], 183, 09/12/24 6:57:00 EDT, Height/Length Dosing, cm, 136.3, 09/12/24 6:57:00 EDT, Weight Dosing, kg Start Date: 09/12/24 Status: Ordered traMADol 50 mg oral tablet 50 mg = 1 tab, Tab, Oral, q6hr PRN, 0 Refill(s), PAIN (Scale 4-10) Start Date: 09/12/24 Status: Ordered Voltaren Arthritis Pain 1% topical gel 2 gm, Gel, Topical, TID, Refill(s) 0 Start Date: 09/12/24 Status: Ordered Problem List Condition Confirmation Course Effective Dates Status Health St atus Informant Impaired mobility Confirmed Active Personal care impairment Confirmed Active Results Laboratory List Name Date Automated Diff HSL 09/10/24 Basic Metabolic Panel HSL (BMP HSL) 09/10 Complete Blood Count w/Auto Diff HSL (CB C w/Auto Diff HSL) 09/10/24 Automated Diff HSL 09/07/24 Basic Metabolic Panel HSL (BMP HSL) 09/07 Complete Blood Count w/Auto Diff HSL (CB C w/Auto Diff HSL) 09/07/24 Automated Diff HSL 09/03/24 Basic Metabolic Panel HSL (BMP HSL) 09/03 Complete Blood Count w/Auto Diff HSL (CB C w/Auto Diff HSL) 09/03/24 HA1C - QST 09/03/24 Comprehensive Metabolic Panel HSL (CMP H SL) 08/27/24 Most recent to oldest [Reference Range]: 1 2 3 Creatinine Level 0.80 mg/dL (09/10/24 7:02 AM) 0.80 mg/dL (09/07/24 7:34 AM) 0.90 mg/dL (09/03/24 6:30 AM) Creatinine - UN 0.80 mg/dL (09/10/24 7:02 AM) 0.80 mg/dL (09/07/24 7:34 AM) 0.90 mg/dL (09/03/24 6:30 AM) Estimated Creatinine Clearance 64.76 mL/min 1 (09/12/24 6:57 AM) 64.76 mL/min 2 (09/10/24 7:02 AM) 64.76 mL/min 3 (09/07/24 7:34 AM) Hemoglobin A1c - QST [<5.7 %] 5.8 % 4 *HI* (09/03/24 6:30 AM) Corrected WBC HSL [4-12 x10(3)/mcL] 4 x10(3)/mcL (09/10/24 7:02 AM) 4 x10(3)/mcL (09/07/24 7:34 AM) 6 x10(3)/mcL (09/03/24 6:30 AM) WBC HSL [4.4-11.6 10^3/uL] 3.6 10^3/uL *LOW* (09/10/24 7:02 AM) 4.0 10^3/uL *LOW* (09/07/24 7:34 AM) 5.5 10^3/uL (09/03/24 6:30 AM) RBC HSL [4.10-5.80 10^3/uL] 3.07 10^3/uL *LOW* (09/10/24 7:02 AM) 2.80 10^3/uL *LOW* (09/07/24 7:34 AM) 2.64 10^3/uL *LOW* (09/03/24 6:30 AM) Hemoglobin HSL [13.4-17.6 g/dL] 10.6 g/dL *LOW* (09/10/24 7:02 AM) 9.8 g/dL *LOW* (09/07/24 7:34 AM) 9.2 g/dL *LOW* (09/03/24 6:30 AM) Hematocrit HSL [39.9-53.1 %] 31.5 % *LOW* (09/10/24 7:02 AM) 28.7 % *LOW* (09/07/24 7:34 AM) 27.0 % *LOW* (09/03/24 6:30 AM) MCV HSL [79.9-103.5 fL] 102.7 fL (09/10/24 7:02 AM) 102.5 fL (09/07/24 7:34 AM) 102.3 fL (09/03/24 6:30 AM) MCH HSL [25.9-34.1 g/dL] 34.7 g/dL *HI* (09/10/24 7:02 AM) 34.9 g/dL *HI* (09/07/24 7:34 AM) 34.9 g/dL *HI* (09/03/24 6:30 AM) MCHC HSL [31.9-35.4 g/dL] 33.8 g/dL (09/10/24 7:02 AM) 34.0 g/dL (09/07/24 7:34 AM) 34.1 g/dL (09/03/24 6:30 AM) Platelet HSL [149-451 10^3/uL] 159 10^3/uL (09/10/24 7:02 AM) 158 10^3/uL (09/07/24 7:34 AM) 162 10^3/uL (09/03/24 6:30 AM) RDW-CV% HSL [11.5-14.5 %] 15.6 % *HI* (09/10/24 7:02 AM) 15.4 % *HI* (09/07/24 7:34 AM) 14.9 % *HI* (09/03/24 6:30 AM) RDW-SD HSL [35.5-44.0 fL] 55.6 fL *HI* (09/10/24 7:02 AM) 55.1 fL *HI* (09/07/24 7:34 AM) 53.4 fL *HI* (09/03/24 6:30 AM) MPV HSL [8.9-13.1 fL] 7.7 fL *LOW* (09/10/24 7:02 AM) 7.5 fL *LOW* (09/07/24 7:34 AM) 7.9 fL *LOW* (09/03/24 6:30 AM) Neutrophil Auto HSL [39.6-77.4 %] 60.8 % (09/10/24 7:02 AM) 69.8 % (09/07/24 7:34 AM) 68.6 % (09/03/24 6:30 AM) Lymphocyte Auto HSL [17.7-51.9 %] 25.5 % (09/10/24 7:02 AM) 19.2 % (09/07/24 7:34 AM) 17.7 % (09/03/24 6:30 AM) Monocyte Auto HSL [2.9-10.5 %] 9.2 % (09/10/24 7:02 AM) 7.6 % (09/07/24 7:34 AM) 10.1 % (09/03/24 6:30 AM) Eosinophil Auto HSL [0.0-7.1 %] 3.3 % (09/10/24 7:02 AM) 2.7 % (09/07/24 7:34 AM) 2.6 % (09/03/24 6:30 AM) Basophil Auto HSL [0.0-9.1 %] 1.2 % (09/10/24 7:02 AM) 0.7 % (09/07/24 7:34 AM) 1.0 % (09/03/24 6:30 AM) Neutrophil Absolute HSL [1.1-5.4 10^3/uL] 2.2 10^3/uL (09/10/24 7:02 AM) 2.8 10^3/uL (09/07/24 7:34 AM) 3.8 10^3/uL (09/03/24 6:30 AM) Lymphocyte Absolute HSL [0.7-2.8 10^3/uL] 0.9 10^3/uL (09/10/24 7:02 AM) 0.8 10^3/uL (09/07/24 7:34 AM) 1.0 10^3/uL (09/03/24 6:30 AM) Monocyte Absolute HSL [0.0-1.1 10^3/uL] 0.3 10^3/uL (09/10/24 7:02 AM) 0.3 10^3/uL (09/07/24 7:34 AM) 0.6 10^3/uL (09/03/24 6:30 AM) Eosinophil Absolute HSL [0.0-0.5 10^3/uL] 0.1 10^3/uL (09/10/24 7:02 AM) 0.1 10^3/uL (09/07/24 7:34 AM) 0.1 10^3/uL (09/03/24 6:30 AM) Basophil Absolute HSL [0.00-0.06 10^3/uL] 0.00 10^3/uL (09/10/24 7:02 AM) 0.00 10^3/uL (09/07/24 7:34 AM) 0.10 10^3/uL *HI* (09/03/24 6:30 AM) Nucleated RBC HSL 0.4 *NA* (09/10/24 7:02 AM) 0.2 *NA* (09/07/24:34 AM) 0.3 *NA* (09/03/24 6:30 AM) Sodium HSL [135.9-146.1 mEq/L] 138.0 mEq/L (09/10/24 7:02 AM) 137.0 mEq/L (09/07/24 7:34 AM) 137.0 mEq/L (09/03/24 6:30 AM) Potassium HSL [3.4-4.6 mEq/L] 4.0 mEq/L (09/10/24:02 AM) 3.9 mEq/L (09/07/24:34 AM) 4.1 mEq/L (09/03/24 6:30 AM) Chloride HSL [95.9-106.1 mEq/L] 105.0 mEq/L (09/10/24 7:02 AM) 103.0 mEq/L (09/07/24:34 AM) 103.0 mEq/L (09/03/24 6:30 AM) Carbon Dioxide HSL [21.9-29.1 mEq/L] 28.0 mEq/L (09/10/24:02 AM) 27.0 mEq/L (09/07/24:34 AM) 29.0 mEq/L (09/03/24 6:30 AM) Anion Gap HSL [8-16 mmol/L] 9 mmol/L (09/10/24 7:02 AM) 11 mmol/L (09/07/24:34 AM) 9 mmol/L (09/03/24 6:30 AM) Glucose HSL [74.9-115.1 mg/dL] 120.0 mg/dL *HI* (09/10/24 7:02 AM) 134.0 mg/dL *HI* (09/07/24 7:34 AM) 116.0 mg/dL *HI* (09/03/24 6:30 AM) BUN HSL [10.9-23.1 mg/dL] 16.0 mg/dL (09/10/24 7:02 AM) 14.0 mg/dL (09/07/24 7:34 AM) 17.0 mg/dL (09/03/24 6:30 AM) Creatinine HSL [0.6-1.6 mg/dL] 0.8 mg/dL (09/10/24 7:02 AM) 0.8 mg/dL (09/07/24 7:34 AM) 0.9 mg/dL (09/03/24 6:30 AM) eGFR-AA HSL 73 *NA* (09/10/24 7:02 AM) 73 *NA* (09/07/24 7:34 AM) 69 *NA* (09/03/24 6:30 AM) eGFR-Non AA HSL 88 *NA* (09/10/24 7:02 AM) 88 *NA* (09/07/24 7:34 AM) 83 *NA* (09/03/24 6:30 AM) BUN/Creat Ratio HSL [5-20 ratio] 20 ratio (09/10/24 7:02 AM) 18 ratio (09/07/24 7:34 AM) 19 ratio (09/03/24 6:30 AM) Calcium Total HSL [8.9-11.1 mg/dL] 8.9 mg/dL (09/10/24 7:02 AM) 8.6 mg/dL *LOW* (09/07/24 7:34 AM) 8.5 mg/dL *LOW* (09/03/24 6:30 AM) Albumin HSL [3.4-5.1 g/dL] 3.3 g/dL *LOW* (08/27/24 6:14 AM) Protein Total HSL [5.9-8.4 g/dL] 6.1 g/dL (08/27/24 6:14 AM) Bilirubin Total HSL [0.1-1.4 mg/dL] 2.6 mg/dL *HI* (08/27/24 6:14 AM) Alkaline Phosphatase HSL [19.9-90.1 IU/L] 63.0 IU/L (08/27/24 6:14 AM) AST HSL [9.9-59.1 IU/L] 26.0 IU/L (08/27/24 6:14 AM) ALT HSL [9.9-40.1 IU/L] 20.0 IU/L (08/27/24 6:14 AM) 1Result Comment: Calculated using method: Cockcroft-Gault (default) Calculated using Formula : (140-ageInYears)*IBW/(72) Age: 79 (50473665435.0) Serum Creatinine: 0.80 mg/dL (99016439893.0) Height: 183 cm (90946270470.0) Weight: 136.3 kg (IBW = 77.709 kg) 2Result Comment: Calculated using method: Cockcroft-Gault (default) Calculated using Formula : (140-ageInYears)*IBW/(72) Age: 79 (24038137193.0) Serum Creatinine: 0.80 mg/dL (44729138545.0) Height: 183 cm (34249369958.0) Weight: 136.8 kg (IBW = 77.709 kg) 3Result Comment: Calculated using method: Cockcroft-Gault (default) Calculated using Formula : (140-ageInYears)*IBW/(72) Age: 79 (73554927810.0) Serum Creatinine: 0.80 mg/dL (50203907903.0) Height: 183 cm (94714987630.0) Weight: 136.8 kg (IBW = 77.709 kg) 4Result Comment: For someone without known diabetes, a hemoglobin A1c value between 5.7% and 6.4% is consistent with prediabetes and should be confirmed with a follow-up test. For someone with known diabetes, a value <7% indicates that their diabetes is well controlled. A1c targets should be individualized based on duration of diabetes, age, comorbid conditions, and other considerations. This assay result is consistent with an increased risk of diabetes. Currently, no consensus exists regarding use of hemoglobin A1c for diagnosis of diabetes for children. Lab test performed by: Lab Mnemonic: [facility] [address] [place] [address] DAVID MONTGOMERY Vital Signs Most recent to oldest [Reference Range]: 1 2 3 Temperature Oral F [96.4-99.1 DegF] 97.4 DegF (09/12/24 5:52 AM) 97.7 DegF (09/11/24 5:37 AM) 97.8 DegF (09/10/24 8:21 PM) Apical Heart Rate [60-100 bpm] 99 bpm (09/03/24 7:11 PM) 96 bpm (09/03/24 7:06 PM) Peripheral Pulse Rate [60-100 bpm] 77 bpm (09/12/24 5:52 AM) 96 bpm (09/11/24 8:10 PM) 84 bpm (09/11/24 5:38 AM) Heart Rate Monitored [60-100 bpm] 95 bpm (09/02/24 8:25 PM) Respiratory Rate [14-20 br/min] 18 br/min (09/11/24 5:38 AM) 16 br/min (09/11/24 12:46 AM) 18 br/min (09/10/24 8:21 PM) Blood Pressure [90-140/60-90 mmHg] 118/73mmHg (09/12/24 5:52 AM) 138/74mmHg (09/11/24 8:09 PM) 100/63mmHg (09/11/24 5:37 AM) Mean Arterial Pressure, Cuff 88 mmHg (09/12/24 5:52 AM) 96 mmHg (09/11/24 8:09 PM) 75 mmHg (09/11/24 5:37 AM) O2 Flow Rate with Activity 2 L/min (08/27/24 8:08 AM) Vital Signs w/ Activity Additional Info sats stayed around ~94% on 2L of O2 (08/27/24 8:08 AM) Temperature Oral 36.3 DegC 1 (09/12/24 5:52 AM) 36.5 DegC 2 (09/11/24 5:37 AM) 36.6 DegC 3 (09/10/24 8:21 PM) 1Result Comment: Charted by SYSTEM secondary to charting of Temperature Oral F on a Vitals Monitor. Rule: VITALSLINK_CALCULATIONS_2 2Result Comment: Charted by SYSTEM secondary to charting of Temperature Oral F on a Vitals Monitor. Rule: VITALSLINK_CALCULATIONS_2 3Result Comment: Charted by SYSTEM secondary to charting of Temperature Oral F on a Vitals Monitor. Rule: VITALSLINK_CALCULATIONS_2 Social History Social History Type Response Sex Male Sex Representation Male (finding) Patient Care team information Personnel Name: Wm Tobias
--- OUTSIDE RECORDS SUMMARY | 2024-10-25 14:10 | XMS_ITS | Encounter Summary ---
Author Organization [facility] Address [address] [place] [address] Care Team Providers Care Helper Metal Hanging Name Role Phone Wm Tobias MD Primary Care Provider [phone] Reason for Visit * Reason Comments Pain * Consultation (Routine) - Closed Specialty Diagnoses / Procedures Referred By Saadia t Referred To Contact Orthopedic Surgery Diagnoses Right knee pain Referring, Self [address] [facility] [address] [place] [address] Phone: tel: fax: Referral ID Status Reason Start Date Expiration Date Visits Re quested Visits Authorized [id number] Closed 10/12/2024 01/11/2026 1 1 Encounter Details Date Type Department Care Team (Late st Contact Info) Description 10/25/2024 2:10 PM EDT Office Visit [facility] [address] [place] [address] Olvin Mo MD [address] [place] [address] Primary osteoarthritis of right knee (Primary Dx) Social History Tobacco Use Types Packs/Day Years Used Date Smoking Tobacco: Never Smokeless Tobacco: Never Alcohol Use Standard Drinks/Week Comments Never 0 (1 standard drink = 0.6 oz pur e alcohol) [facility] Utilities Answer Date Recorded In the past 12 months has [employer] electric, gas, oil, or water company threatened to shut off services in your home? No 08/23/2024 AUDIT-C Answer Date Recorded Q1: How often do you have a drink containing alcohol? Never 08/21/2024 Q2: How many drinks containi ng alcohol do you have on a typical day when you are drinking? Patient does not drink Q3: How often do you have si x or more drinks on one occasion? Never 08/21/2024 Overall Financial Resource Strain (CARDIA) Answe r Date Recorded How hard is it for you to pa y for the very basics like food, housing, medical care, and heating? Not very hard 08/23/2024 [facility] - Occupational Stress Questionnaire Answer Date Recorded Do you feel stress - tense, restless, nervous, or anxious, or unable to sleep at night because your mind is troubled all the time - these days? Only a little 08/23/2024 Exercise Vital Sign Answer Date Recorde d On average, how many days pe r week do you engage in moderate to strenuous exercise (like a brisk walk)? 0 days 08/23/2024 On average, how many minutes do you engage in exercise at this level? 0 min 08/23/2024 Hunger Vital Sign Answer Date Recorded Within the past 12 months, y ou worried that your food would run out before you got the money to buy more. Never true 08/24/19 25 Within the past 12 months, t he food you bought just didn't last and you didn't have money to get more. Never true 08/23/2024 PRAPARE - Transportation Answer Date Re corded In the past 12 months, has l ack of transportation kept you from medical appointments or from getting medications? No 08/2024 In the past 12 months, has l ack of transportation kept you from meetings, work, or from getting things needed for daily living? No 08/23/2024 Housing Stability Vital Sign Answer Heriberto e Recorded In the last 12 months, was t here a time when you were not able to pay the mortgage or rent on time? No 08/09/2021 Number of Places Lived in the Last Year Not on f ile 08/09/2021 In the last 12 months, was t here a time when you did not have a steady place to sleep or slept in a usp (including now)? No 08/09/2021 Abuse Screen Answer Date Recorded Feels Unsafe at Home or Work/School no 08/21/2024 Feels Threatened by Someone no 06/2024 Does Anyone Try to Keep You From Having Contact with Others or Doing Things Outside Your Home? no 08/21/2024 Physical Signs of Abuse Present no 08/21/2024 Housing Stability Answer Date Recorded Current Living Arrangements home 08/2024 Potentially Unsafe Housing Conditions none 08/23/2024 Family and Community Support Answer Heriberto e Recorded If for any reason you need h elp with day-to-day activities such as bathing, preparing meals, shopping, managing finances, etc., do you get the help you need? I get all the help I need 08/23/2024 How often do you feel lonely or isolated from those around you? Never 08/23/2024 Employment Answer Date Recorded Do you want help finding or keeping work or a job? I do not need or want help 08/23/2024 Disabilities Answer Date Recorded Difficulty Concentrating, Remembering or Making Decisions no 08/21/2024 Difficulty Managing Errands Independently yes 08/21/2024 Education Answer Date Recorded Do you want help with school or training? For example, starting or completing job training or getting a high school diploma, GED or equivalent No 08/23/2024 Preferred Language Malawian 08/23/2024 PHQ-2 Answer Date Recorded Patient Health Questionnaire-2 Score 0 08/23/2024 Education Answer Date Recorded What is the highest level of school you have completed or the highest degree you have received? 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 [facility] Orthopaedic Surgery Clinic Note Subjective Chief Complaint Patient presents with Right Knee - Pain HPI Beth Castro is a 79 y.o. male who presents with new problem of: right knee pain. Onset: mechanical fall. The issue has been ongoing for 2 month(s). Pain is a 7/10 on the pain scale. Pain is described as stabbing. Associated symptoms include pain and popping. The pain is worse with walking, standing, sleeping, and lying on affected side; resting, pain medication and/or NSAID, and elevating the extremity improve the pain. Previous treatments have included: bracing, cane/walker, and steroid injection (last injection 2023). [facility], and received viscosupplementation injections a year ago without benefit. He said he had cellulitis afterwards. Of note, he is under the care of Dr. Gee for a right hip intertrochanteric fracture fixed with an intramedullary device in August 2024. I have reviewed the following portions of the patient's history and agree with: History of Present Illness and Review of Systems Patient Active Problem List Diagnosis Nephrolithiasis Hip fracture Fall Past Medical History: Diagnosis Date Arthritis Borderline diabetes COVID-19 12/2019 [place] [place] (hard of hearing) bilateral hearing aids Hx of exercise stress test 2007 states was WNL Hypothyroidism Kidney stones Poor circulation of extremity legs Skin cancer Skin cancer left ear Sleep apnea CPAP compliant TB (tuberculosis) Age 14 Past Surgical History: Procedure Laterality Date COLONOSCOPY HIP TROCHANTERIC NAILING WITH INTRAMEDULLARY HIP SCREW Right 08/22/2024 Procedure: HIP TROCHANTERIC NAILING WITH INTRAMEDULLARY HIP SCREW RIGHT; Surgeon: Valdo Gee MD; Location: [facility]; Service: Orthopedics; Laterality: Right; INGUINAL HERNIA REPAIR 1970 inguinal KIDNEY STONE SURGERY OTHER SURGICAL HISTORY Right Arm due to FX PERCUTANEOUS NEPHROSTOLITHOTOMY Right 05/23/2021 Procedure: CYSTOSCOPY & BALLOON OCCLUSION CATHETER PLACEMENT, PRIMARY PERCUTANEOUS ACCESS, NEPHROSTOLITHOTOMY PERCUTANEOUS MINI; Surgeon: Kenny Wheeler MD; Location: [facility] OR; Service: Urology; Laterality: Right; PERCUTANEOUS NEPHROSTOLITHOTOMY Left 07/25/2021 Procedure: CYSTOSCOPY & BALLOON OCCLUSION CATHETER PLACEMENT, PRIMARY PERCUTANEOUS ACCESS, NEPHROSTOLITHOTOMY PERCUTANEOUS; Surgeon: Kenny Wheeler MD; Location: [facility] OR; Service: Urology; Laterality: Left; URETEROSCOPY LASER LITHOTRIPSY WITH STENT INSERTION Left 08/08/2021 Procedure: URETEROSCOPY LASER LITHOTRIPSY WITH STENT INSERTION, nephrostomy removal under fluro; Surgeon: Kenny Wheeler MD; Location: [facility] OR; Service: Urology; Laterality: Left; URETEROSCOPY LASER LITHOTRIPSY WITH STENT INSERTION Left 08/31/2021 Procedure: URETEROSCOPY WITH STENT EXCHANGE; Surgeon: Kenny Wheeler MD; Location: [facility] OR; Service: Urology; Laterality: Left; Family History Problem Relation Age of Onset Cancer Mother Kidney failure Father Social History Socioeconomic History Marital status: Number of children: 2 Highest education level: 12th grade Tobacco Use Smoking status: Never Smokeless tobacco: Never Vaping Use Vaping status: Never Used Substance and Sexual Activity Alcohol use: Never Drug use: Never Sexual activity: Defer Current Outpatient Medications on File Prior to Visit Medication Sig Dispense Refill acetaminophen (TYLENOL) 325 MG tablet Take 2 tablets by mouth Every 4 (Four) Hours As Needed for Mild Pain. aspirin 81 MG chewable tablet Chew 1 tablet 2 (Two) Times a Day. clobetasol propionate (TEMOVATE) 0.05 % cream APPLY CREAM TOPICALLY TO AFFECTED AREA TWICE DAILY FOR UP TO 2 WEEKS. TAKE ONE WEEK BREAK AND REPEAT NEEDED UNTIL CLEAR. DO NOT USE ON FACE levothyroxine (SYNTHROID, LEVOTHROID) 200 MCG tablet Take 1 tablet by mouth once daily (Patient taking differently: Take 1 tablet by mouth Every Morning. Take 1 tablet daily along with the 25 mcg tablet for a total of 225 mcg) 90 tablet 0 levothyroxine (SYNTHROID, LEVOTHROID) 25 MCG tablet Take 1 tablet by mouth Every Morning. Take 1 tablet daily along with the 200 mcg tablet for a total of 225 mcg mupirocin (BACTROBAN) 2 % ointment Apply 1 Application topically to the appropriate area as directed Daily. traMADol (ULTRAM) 50 MG tablet Take 1 tablet by mouth Every 8 (Eight) Hours As Needed. for pain triamcinolone (KENALOG) 0.1 % ointment APPLY TOPICALLY 3 TIMES DAILY FOR 7 DAYS [Paused] meloxicam (MOBIC) 15 MG tablet Take 1 tablet by mouth once daily (Patient not taking: Reported on 10/25/2024) 90 tablet 0 oxybutynin XL (Ditropan XL) 10 MG 24 hr tablet Take 1 tablet by mouth Daily As Needed (bladder spasm). (Patient not taking: Reported on 10/25/2024) 10 tablet 0 oxyCODONE-acetaminophen (PERCOCET) 5-325 MG per tablet Take 1 tablet by mouth Every 4 (Four) Hours As Needed for Moderate Pain or Severe Pain. (Patient not taking: Reported on 10/25/2024) phenazopyridine (PYRIDIUM) 100 MG tablet Take 1 tablet by mouth 3 (Three) Times a Day As Needed (urinary burning). (Patient not taking: Reported on 10/25/2024) 21 tablet 0 polyethylene glycol (MIRALAX) 17 g packet Take 17 g by mouth Daily As Needed (Use if senna-docusateis ineffective). (Patient not taking: Reported on 10/25/2024) sennosides-docusate (PERICOLACE) 8.6-50 MG per tablet Take 2 tablets by mouth 2 (Two) Times a Day. Hold for loose stool (Patient not taking: Reported on 10/25/2024) tamsulosin (FLOMAX) 0.4 MG capsule 24 hr capsule Take 1 capsule by mouth Every Night. (Patient not taking: Reported on 10/25/2024) 10 capsule 0 No current facility-administered medications on file prior to visit. Allergies Allergen Reactions Chlorhexidine Hives Latex Rash Review of Systems Constitutional: Negative for activity change, appetite change, chills, diaphoresis, fatigue, fever and unexpected weight change. HENT: Negative for congestion, dental problem, drooling, ear discharge, ear pain, facial swelling, hearing loss, mouth sores, nosebleeds, postnasal drip, rhinorrhea, sinus pressure, sneezing, sore throat, tinnitus, trouble swallowing and voice change. Eyes: Negative for photophobia, pain, discharge, redness, itching and visual disturbance. Respiratory: Negative for apnea, cough, choking, chest tightness, shortness of breath, wheezing andstridor. Cardiovascular: Negative for chest pain, palpitations and leg swelling. Gastrointestinal: Negative for abdominal distention, abdominal pain, anal bleeding, blood in stool,constipation, diarrhea, nausea, rectal pain and vomiting. Endocrine: Negative for cold intolerance, heat intolerance, polydipsia, polyphagia and polyuria. Genitourinary: Negative for decreased urine volume, difficulty urinating, dysuria, enuresis, flank pain, frequency, genital sores, hematuria and urgency. Musculoskeletal: Positive for arthralgias. Negative for back pain, gait problem, joint swelling, myalgias, neck pain and neck stiffness. Skin: Negative for color change, pallor, rash and wound. Allergic/Immunologic: Negative for environmental allergies, food allergies and immunocompromised state. Neurological: Negative for dizziness, tremors, seizures, syncope, facial asymmetry, speech difficulty, weakness, light-headedness, numbness and headaches. Hematological: Negative for adenopathy. Does not bruise/bleed easily. Psychiatric/Behavioral: Negative for agitation, behavioral problems, confusion, decreased concentration, dysphoric mood, hallucinations, self-injury, sleep disturbance and suicidal ideas. The patientis not nervous/anxious and is not hyperactive. All other systems reviewed and are negative. Objective Physical Exam Ht 177.8 cm (70 ) Wt (!) 137 kg (301 lb 6.4 oz) BMI 43.25 kg/m?? General: Mental Status: Alert Appearance: Cooperative, in no acute distress Build and Nutrition: Obese by BMI male Orientation: Alert and oriented to person, place and time Posture: Normal Gait: Limp with a walker Integument: Right knee: No skin lesions, no rash, no ecchymosis Neurologic: Sensation: Right foot: Intact to light touch on the dorsal and plantar aspect Motor: Right lower extremity: 5/5 quadriceps, hamstrings, ankle dorsiflexors, and ankle plantar flexors Vascular: Right lower extremity: 2+ dorsalis pedis pulse, prompt capillary refill Lower Extremities: Right Knee: Tenderness: Medial/lateral joint line tenderness Effusion: 1-2+ Swelling: Pitting edema to the knee Crepitus: Positive Atrophy: None Range of motion: Extension: 10?? Flexion: 100?? Instability: No varus laxity, no valgus laxity, negative anterior drawer Deformities: Varus Imaging/Studies Imaging Results (Last 24 Hours) Procedure Component Value Units Date/Time XR Knee 4+ View Right [[id number]] Resulted: 10/25/24 1412 Updated: 10/25/241411 Narrative: Right Knee Radiographs Indication: right knee pain Views: Standing AP's and skiers of both knees, with lateral and sunrise views of the right knee Comparison: no prior studies available Findings: Bone contact medial compartment, tricompartmental osteophytes, varus alignment, diffuse osteopenia, no acute bony abnormalities. Advanced knee arthritis. Assessment and Plan Diagnoses and all orders for this visit: 1. Primary osteoarthritis of right knee (Primary) - XR Knee 4+ View Right - - Large Joint Arthrocentesis: R knee 1. Primary osteoarthritis of right knee Reviewed my findings with the patient and his . He has advanced right knee arthritis. I have concerns about surgical intervention given his peripheral edema, body mass index, skin quality, and overall medical condition and recent hip surgery on the right. He would like to try an intra-articularknee injection, and this was provided. I will see him back in 4 months, but I will be happy to see him back sooner for any problems. Procedure Note: The potential benefits of performing a therapeutic right knee joint injection, as well as potentialrisks (including, but not limited to infection, swelling, pain, bleeding, bruising, nerve/blood vessel damage, skin color changes, transient elevation in blood glucose levels, and fat atrophy) were discussed with the patient. After informed consent, timeout procedure was performed, and the skin on the right knee was prepped with chlorhexidine soap and alcohol, after which ethyl chloride was applied to the skin at the injection site. Via the anterolateral approach, 1ml of Kenalog 40mg/ml mixed with 4ml 0.5% ropivacaine plain was injected into the knee joint. The patient tolerated the procedurewell, experiencing 30% improvement a few minutes following the injection. There were no complications. Band-Aid was applied to the injection site. Post-procedural instructions were given to the patient and/or their caregiver. Return in about 4 months (around 02/25/2025). Olvin Mo MD 10/25/24 14:47 EDT Dictated Utilizing [employer] Dictation * Yvrose Sun MA - 10/25/2024 2:10 PM EDTAssociated Order(s): - Large Joint Arthrocentesis: R knee Procedure - Large Joint Arthrocentesis: R knee on 10/25/2024 2:29 PM Indications: pain Details: 21 G needle, anterolateral approach Medications: 5 mL ropivacaine 0.5 %; 40 mg triamcinolone acetonide 40 MG/ML Outcome: tolerated well, no immediate complications Procedure, treatment alternatives, risks and benefits explained, specific risks discussed. Consent was given by the patient. Immediately prior to procedure a time out was called to verify the correctpatient, procedure, equipment, it application support analyst and site/side marked as required. Patient was prepped and draped in the usual sterile fashion. documented in this encounter Plan of Treatment Upcoming Encounters Date Type Department Care Team (Late st Contact Info) Description 02/28/2025 12:50 PM EST Office Visit [facility] [address] [place] [address] Olvin Mo MD [employer] [place] [address] documented as of this encounter Procedures Procedure Name Priority Date/Time Associated Diagnosis Comments CO ARTHROCENTESIS ASPIR&/INJ MAJOR JT/BURSA W/O US Routine 10/25/2024 2:29 PM EDT Primary osteoarthritis of right knee XR KNEE 4+ VW RIGHT Routine 10/25/2024 2 :05 PM EDT Primary osteoarthritis of right knee documented in this encounter Results * CO ARTHROCENTESIS ASPIR&/INJ MAJOR JT/BURSA W/O US (10/25/2024 2:29 PM EDT) Narrative Yvrose Sun MA - 10/25/2024 2:29 PM EDT Yvrose Sun MA 10/25/2024 2:47 PM - Large Joint Arthrocentesis: R knee on 10/25/2024 2:29 PM Indications: pain Details: 21 G needle, anterolateral approach Medications: 5 mL ropivacaine 0.5 %; 40 mg triamcinolone acetonide 40 MG/ML Outcome: tolerated well, no immediate complications Procedure, treatment alternatives, risks and benefits explained, specific risks discussed. Consent was given by the patient. Immediately prior to procedure a time out was called to verify the correct patient, procedure, equipment, it application support analyst and site/side marked as required. Patient was prepped and draped in the usual sterile fashion. us Olvin Mo MD PROCEDURE/MINOR SURGICAL ORDER CINTIA Final Result * XR Knee 4+ View Right (10/25/2024 2:05 PM EDT) Anatomical Region Laterality Modality Lower Extremities, Knee Right Xray Narrative 10/25/2024 2:12 PM EDT Right Knee Radiographs Indication: right knee pain Views: Standing AP's and skiers of both knees, with lateral and sunrise views of the right knee Comparison: no prior studies available Findings: Bone contact medial compartment, tricompartmental osteophytes, varus alignment, diffuse osteopenia, no acute bony abnormalities. Advanced knee arthritis. Olvin Mo MD IMG DIAGNOSTIC IMAGING ORDERAB LES Final Result documented in this encounter Visit Diagnoses Diagnosis Primary osteoarthritis of right knee- Primary documented in this encounter Administered Medications Inactive Administered Medications - up to 3 most recent administrations Medication Order MAR Action Action Date Dose Rate Site ropivacaine (NAROPIN) 0.5 % injection 5 mL 5 mL, One-Time Injection, Starting on Fri10/25/24 at 1429, For 1 doseIndications:Primary osteoarthritis of right knee Given 10/25/2024 2:29 PM EDT 5 mL Knee Right triamcinolone acetonide (KENALOG-40) injection 40 mg 40 mg, One-Time Injection, Starting on Fri10/25/24 at 1429, For 1 doseIndications:Primary osteoarthritis of right knee Given 10/25/2024 2:29 PM EDT 40 mg Knee Right documented in this encounter Care Teams Helper Metal Hanging Relationship Specialty Start Date End Date Wm Tobisa MD [facility] [address] [place] [address] PCP - General Adolescent Medicine 08/23/24 documented as of this encounter
--- OUTSIDE RECORDS SUMMARY | 2024-11-05 12:42 | XMS_ITS | Data Portability ---
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 Plan of Treatment Reminders Order Date Submit Date Provider Last Modified By Organization Details Last Modified Time Details Appointments None recorded. Lab TSH, serum or plasma 2023 024 [id number] 6 [facility], [address] [place], [address], 4 12:55:43 mma (methylmal onic acid), serum 2023 024 [email or web address] 6 [facility], [address] [place], [address], 4 12:55:43 vitamin B12, serum 2023 024 [email or web address] 6 [facility], [address] [place], [address], 4 12:55:43 folate, serum 2023 024 BHARTI [facility], [address] [place], [address], 4 13:17:57 PT/PTT, plasma 2023 024 [email or web address] 6 [facility], [address] [place], [address], 4 12:55:43 iron + TIBC + ferritin, serum 2023 024 [facility] [address] [place] [address] Lab, [address] [place], [address], 4 12:55:44 iron saturation , serum [address] [facility], [address] [place], [address], 4 12:55:44 CBC w/ auto diff 2023 024 [facility], [address] [place], [address], 4 12:11:49 CMP, serum or plasma 2023 024 [facility], [address] [place], [address], 4 13:08:11 CBC w/ auto diff 2023 024 [facility], [address] [place], [address], 4 15:20:02 CMP, serum or plasma 2023 024 [facility], [address] [place], [address], 4 12:02:29 ldh, serum or plasma 2023 024 [facility], [address] [place], [address], 4 12:02:31 RADHA (antinucle ar antibodies ) screen, serum 2023 024 [facility], [address] [place], [address], 4 13:13:06 HIV (1+2) Ab screen, serum 2023 024 [email or web address] 6 [facility], [address], [address] [facility], [place], [address], 4 08:38:39 hepatitis panel (A+B+C), acute, serum 2023 024 [email or web address] 6 [facility], [address] [place], [address], 4 08:38:39 platelets, auto, blood [email or web address] [place] [address] Lab, [address] [place], [address], 4 08:38:39 platelet Ab, serum 2023 024 BHARTI [facility], [address] [place], [address], 4 15:15:49 fadumo-ba rr virus (ebv) IgG + IgM panel, serum 2023 024 [email or web address] 6 [facility], [address] [place], [address], 4 08:38:39 Referral None recorded. Procedures None [...] mmol/ L 136-14 5 Not Available [facility] ([facility]) [address], [facility] [facility], [place], [address], 09/29/2023 12:02:29 09/29/19 24 09/29/2023 COMP METAB OLIC PANEL potassium 4.0 mmol/ L 3.6-5. 0 Not Available [facility] ([facility]) [address] , [place], [address], 09/29/2023 12:02:29 09/29/19 24 09/29/2023 COMP METAB OLIC PANEL chloride 106 mmol/ L 98-107 Not Available [facility] ([facility]) [address] , [place], [address], 09/29/2023 12:02:29 09/29/19 24 09/29/2023 COMP METAB OLIC PANEL carbon dioxide 25.0 mmol/ L 21.0-3 2.0 Not Available [facility] ([facility]) [address] , [place], [address], 09/29/2023 12:02:29 09/29/19 24 09/29/2023 COMP METAB OLIC PANEL anion gap 14.0 Not Available [facility] ([facility]) [address] , [place], [address], 09/29/2023 12:02:29 09/29/19 24 09/29/2023 COMP METAB OLIC PANEL glucose 132 mg/dL 70-120 high Not Available [facility] ([facility]) [address] , [place], [address], 09/29/2023 12:02:29 09/29/19 24 09/29/2023 COMP METAB OLIC PANEL BUN 14 mg/dL 7-18 Not Available [facility] ([facility]) [address] [place], [address], 09/29/2023 12:02:29 09/29/19 24 09/29/2023 COMP METAB OLIC PANEL creatinine 1.0 mg/dL 0.6-1. 3 Not Available [facility] ([facility]) [address] [place], [place], [address], 09/29/2023 12:02:29 09/29/19 24 09/29/2023 COMP METAB OLIC PANEL glomerular filtration rate TNP mlper min 60- TEST NOT PERFO RMED GFR has only been valid ated from 18 to 70 years of age. Not Available [facility] ([facility]) [address] [place], [place], [address], 09/29/2023 12:02:29 09/29/19 24 09/29/2023 COMP METAB OLIC PANEL total protein 7.3 g/dL 6.4-8. 2 Not Available [facility] ([facility]) [address] [place], [place], [address], 09/29/2023 12:02:29 09/29/19 24 09/29/2023 COMP METAB OLIC PANEL albumin 3.7 g/dL 3.4-5. 0 Not Available [facility] ([facility]) [address] [place], [place], [address], 09/29/2023 12:02:29 09/29/19 24 09/29/2023 COMP METAB OLIC PANEL globulin 3.6 Not Available [facility] ([facility]) [address] [place], [place], [address], 09/29/2023 12:02:29 09/29/19 24 09/29/2023 COMP METAB OLIC PANEL alb/glob ratio 1.0 0.7-2 Not Available [facility] ([facility]) [address] [place], [place], [address], 09/29/2023 12:02:29 09/29/19 24 09/29/2023 COMP METAB OLIC PANEL calcium 8.4 mg/dL 8.5-10 .5 low Not Available [facility] ([facility]) [address] [place], [place], [address], 09/29/2023 12:02:29 09/29/19 24 09/29/2023 COMP METAB OLIC PANEL bilirubin total 1.20 mg/dL 0.10-1 .00 high Not Available [facility] ([facility]) [address] , [place], [address], 09/29/2023 12:02:29 09/29/19 24 09/29/2023 COMP METAB OLIC PANEL AST (SGOT) 14 U/L 0-37 Not Available [facility] ([facility]) [address] , [place], [address], 09/29/2023 12:02:29 09/29/19 24 09/29/2023 COMP METAB OLIC PANEL ALT (SGPT) 16 U/L 0-65 Not Available [facility] ([facility]) [address] , [place], [address], 09/29/2023 12:02:29 09/29/19 24 09/29/2023 COMP METAB OLIC PANEL alk phosphatase 78 U/L 46-116 Not Available [facility] ([facility]) [address] , [place], [address], 09/29/2023 12:02:29 09/29/19 24 09/29/2023 LDH (LD) LDH 180 U/L 0-190 Not Available [facility] ([facility]) [address] , [place], [address], 09/29/2023 12:02:31 09/29/19 24 09/29/2023 CBC AUTO W DIFF WBC 4.3 K/uL 4.0-10 .5 Not Available [facility] ([facility]) [address] , [place], [address], 09/29/2023 15:20:02 09/29/19 24 09/29/2023 CBC AUTO W DIFF RBC 3.9 M/mm3 4.7-6. 1 low Not Available [facility] ([facility]) [address] [place], [place], [address], 09/29/2023 15:20:02 09/29/19 24 09/29/2023 CBC AUTO W DIFF HGB 13.5 gm/dL 13.5-1 8.0 Not Available [facility] ([facility]) [address] , [place], [address], 09/29/2023 15:20:02 09/29/19 24 09/29/2023 CBC AUTO W DIFF HCT 40.5 % 42.0-5 2.0 low Not Available [facility] ([facility]) [address] , [place], [address], 09/29/2023 15:20:02 09/29/19 24 09/29/2023 CBC AUTO W DIFF MCV 103.1 fL 78-100 high Not Available [facility] ([facility]) [address] , [place], [address], 09/29/2023 15:20:02 09/29/19 24 09/29/2023 CBC AUTO W DIFF MCH 34.4 pg 27-31 high Not Available [facility] ([facility]) [address] , [place], [address], 09/29/2023 15:20:02 09/29/19 24 09/29/2023 CBC AUTO W DIFF MCHC 33.3 g/dL 32-36 Not Available [facility] ([facility]) [address] , [place], [address], 09/29/2023 15:20:02 09/29/19 24 09/29/2023 CBC AUTO W DIFF RDW 13.1 % 11.5-1 4.0 Not Available [facility] ([facility]) [address] , [place], [address], 09/29/2023 15:20:02 09/29/19 24 09/29/2023 CBC AUTO W DIFF platelet count 98 K/uL 150-45 0 low Not Available [facility] ([facility]) [address] [place], [address], 09/29/2023 15:20:02 09/29/19 24 09/29/2023 CBC AUTO W DIFF MPV 11.8 fL 6-9.5 high Not Available [facility] ([facility]) [address] [place], [address], 09/29/2023 15:20:02 09/29/19 24 09/29/2023 CBC AUTO W DIFF neutrophil% 54.3 % 43-65 Not Available [facility] ([facility]) [address] [place], [address], 09/29/2023 15:20:02 09/29/19 24 09/29/2023 CBC AUTO W DIFF lymphocyte% 29.2 % 20.5-4 5.5 Not Available [facility] ([facility]) [address] [place], [address], 09/29/2023 15:20:02 09/29/19 24 09/29/2023 CBC AUTO W DIFF monocyte% 10.6 % 5.5-11 .7 Not Available [facility] ([facility]) [address] [place], [address], 09/29/2023 15:20:02 09/29/19 24 09/29/2023 CBC AUTO W DIFF eosinophil% 3.8 % 0.9-2. 9 high Not Available [facility] ([facility]) [address] [place], [address], 09/29/2023 15:20:02 09/29/19 24 09/29/2023 CBC AUTO W DIFF basophil% 1.2 % 0.2-1. 0 high Not Available [facility] ([facility]) [address] [place], [address], 09/29/2023 15:20:02 09/29/19 24 09/29/2023 CBC AUTO W DIFF immature granulocytes % 0.9 % 0.0-0. 8 high Not Available [facility] ([facility]) [address] [place], [address], 09/29/2023 15:20:02 09/29/19 24 09/29/2023 CBC AUTO W DIFF nucleated red blood cells % 0.0 % Not Available [facility] ([facility]) [address] [place], [address], 09/29/2023 15:20:02 09/29/19 24 09/29/2023 CBC AUTO W DIFF neutrophil# 2.3 K/uL 2.2-4. 8 Not Available [facility] ([facility]) [address] [place], [address], 09/29/2023 15:20:02 09/29/19 24 09/29/2023 CBC AUTO W DIFF lymphocyte# 1.2 cell/ mcL 1.3-2. 9 low Not Available [facility] ([facility]) [address] [place], [address], 09/29/2023 15:20:02 09/29/19 24 09/29/2023 CBC AUTO W DIFF monocyte# 0.5 cell/ mcL 0.3-0. 8 Not Available [facility] ([facility]) [address] [place], [address], 09/29/2023 15:20:02 09/29/19 24 09/29/2023 CBC AUTO W DIFF eosinophil# 0.2 cell/ mcL 0-0.2 Not Available [facility] ([facility]) [address] [place], [address], 09/29/2023 15:20:02 09/29/19 24 09/29/2023 CBC AUTO W DIFF basophil# 0.1 cell/ mcL 0.0-1. 0 Not Available [facility] ([facility]) [address] , [place], [address], 09/29/2023 15:20:02 09/29/19 24 09/29/2023 CBC AUTO W DIFF immature gramulocytes # 0.04 K/uL Not Available [facility] ([facility]) [address] [place], [place], [address], 09/29/2023 15:20:02 09/29/19 24 09/29/2023 CBC AUTO W DIFF nucleated red blood cells # 0.00 K/uL Not Available [facility] ([facility]) [address] , [place], [address], 09/29/2023 15:20:02 09/29/19 24 09/29/2023 CBC AUTO W DIFF manual differential NO Not Available [facility] ([facility]) [address] , [place], [address], 09/29/2023 15:20:02 09/29/19 24 09/30/2023 RADHA W/REF GUERO IF POSIT APOLONIA antinuclear Ab, direct NEGATI VE negati ve Perfo rmed at: [facility] [address] [address] Lab Direc tor: Montez quiñones PhD, Phone : [phone] Not Available [facility] ([facility]) [address] , [place], [address], 09/30/2023 13:13:06 09/29/19 24 09/30/2023 EBV AB VCA, IGG ebv Ab vca, IgG 180.0 U/mL 0.0-17 .9 high Negat apolonia <18.0 Equiv ocal 18.0 - 21.9 Posit apolonia >21.9 Perfo rmed at: [place] [address] Lab Direc tor: Montez quiñones PhD, Phone : [phone] Not Available [facility] ([facility]) [address], [place], [address], 09/30/2023 15:13:41 09/29/19 24 10/02/2023 PLATE LET ANTIB LEVI, SERUM hla class 1 Ab NEGATI VE negati ve Not Available [facility] ([facility]) [address], [address] [facility], [place], [address], 10/02/2023 15:15:49 09/29/19 24 10/02/2023 PLATE LET ANTIB LEVI, SERUM iib / iiia NEGATI VE negati ve Not Available [facility] ([facility]) [address], [facility] [facility], [place], [address], 10/02/2023 15:15:49 09/29/19 24 10/02/2023 PLATE LET ANTIB LEVI, SERUM ib / IX NEGATI VE negati ve Not Available [facility] ([facility]) [address], [facility] [facility], [place], [address], 10/02/2023 15:15:49 09/29/19 24 10/02/2023 PLATE LET ANTIB LEVI, SERUM ia / iia NEGATI VE negati ve Not Available [facility] ([facility]) [address] [place], [address], 10/02/2023 15:15:49 09/29/19 24 10/02/2023 PLATE LET ANTIB LEVI, SERUM glycoprotein IV antibody NEGATI VE negati ve Perfo rmed at: - [facility] [address] [place] [address] Lab Direc tor: Devika ayers MD, Phone : [phone] Not Available [facility] ([facility]) [address] [place], [address], 10/02/2023 15:15:49 09/29/19 24 10/02/2023 ACUTE HEPAT ITIS PANEL hep A Ab, IgM Negati ve negati ve Not Available [facility] ([facility]) [address], [place], [address], 10/02/2023 15:15:50 09/29/19 24 10/02/2023 ACUTE HEPAT ITIS PANEL HBsAg screen Negati ve negati ve Not Available [facility] ([facility]) [address], [facility] [facility], [place], [address], 10/02/2023 15:15:50 09/29/19 24 10/02/2023 ACUTE HEPAT ITIS PANEL hep B core Ab, IgM Negati ve negati ve Not Available [facility] ([facility]) [address], [facility] [facility], [place], [address], 10/02/2023 15:15:50 09/29/19 24 10/02/2023 ACUTE HEPAT ITIS PANEL HCV Ab Non Reacti ve non reacti ve Perfo rmed at: - [facility] [place] [address] Lab Direc tor: Montez quiñones PhD, Phone : [phone] Not Available [facility] ([facility]) [address], [place], [address], 10/02/2023 15:15:50 09/29/19 24 10/02/2023 ACUTE HEPAT ITIS PANEL hep A Ab, IgM Negati ve negati ve Not Available [facility] ([facility]) [address], [facility] [facility], [place], [address], 10/02/2023 15:15:51 09/29/19 24 10/02/2023 ACUTE HEPAT ITIS PANEL HBsAg screen Negati ve negati ve Not Available [facility] ([facility]) [address], [facility] [facility], [place], [address], 10/02/2023 15:15:51 09/29/19 24 10/02/2023 ACUTE HEPAT ITIS PANEL hep B core Ab, IgM Negati ve negati ve Not Available [facility] ([facility]) [address], [facility] [facility], [place], [address], 10/02/2023 15:15:51 09/29/19 24 10/02/2023 ACUTE HEPAT ITIS PANEL HCV Ab Non Reacti ve non reacti ve [facility]: [facility] [address] [place], [place] [id number] Lab Direc tor: Montez quiñones PhD, Phone : [phone] Not Available [facility] ([facility]) [address], [facility] [facility], [place], [address], 10/02/2023 15:15:51 09/29/19 24 10/02/2023 ACUTE HEPAT ITIS PANEL interpretati on: Commen t . Not infec chencho with HCV unles s early or acute infec tion is suspe cted (whic h may be delay ed in an immun ocomp romis ed indiv idual ), or other evide nce exist s to indic ate HCV infec tion. Perfo rmed at: [facility] n [address] [place], [place] [id number] Lab Direc tor: Montez quiñones PhD, Phone : [phone] Not Available [facility] ([facility]) [address], [facility] [facility], [place], [address], 10/02/2023 15:15:51 09/29/19 24 10/02/2023 HIV AB/P2 4 AG WITH REFLE X HIV screen 4TH generation wrfx Non Reacti ve non reacti ve HIV Negat apolonia HIV-1 /HIV- 2 antib odies and HIV-1 p24 antig en were NOT detec chencho. There is no labor atory evide nce of HIV infec tion. Perfo rmed at: [facility] n [address] [facility] [place] [address] Lab Direc tor: Montez quiñones PhD, Phone : [phone] Not Available [facility] ([facility]) [address] , [place], [address], 10/02/2023 15:15:52 09/29/19 24 10/02/2023 EBV AB VCA, IGM ebv Ab vca, IgM <36.0 U/mL 0.0-35 .9 Negat apolonia <36.0 Equiv ocal 36.0 - 43.9 Posit apolonia >43.9 Perfo rmed at: [facility] [address] [facility], [place] [address] Lab Direc tor: Montez quiñones PhD, Phone : [phone] Not Available [facility] ([facility]) [address] , [place], [address], 10/02/2023 15:15:53 11/17/19 24 11/17/2023 CBC AUTO W DIFF WBC 4.4 K/uL 4.0-10 .5 Not Available [facility] ([facility]) [address] , [place], [address], 11/17/2023 12:11:49 11/17/19 24 11/17/2023 CBC AUTO W DIFF RBC 4.0 M/mm3 4.7-6. 1 low Not Available [facility] ([facility]) [address] , [place], [address], 11/17/2023 12:11:49 11/17/19 24 11/17/2023 CBC AUTO W DIFF HGB 13.7 gm/dL 13.5-1 8.0 Not Available [facility] ([facility]) [address] [place], [address], 11/17/2023 12:11:49 11/17/19 24 11/17/2023 CBC AUTO W DIFF HCT 40.4 % 42.0-5 2.0 low Not Available [facility] ([facility]) [address] , [place], [address], 11/17/2023 12:11:49 11/17/19 24 11/17/2023 CBC AUTO W DIFF MCV 100.5 fL 78-100 high Not Available [facility] ([facility]) [address] , [place], [address], 11/17/2023 12:11:49 11/17/19 24 11/17/2023 CBC AUTO W DIFF MCH 34.1 pg 27-31 high Not Available [facility] ([facility]) [address], [place], [address], 11/17/2023 12:11:49 11/17/19 24 11/17/2023 CBC AUTO W DIFF MCHC 33.9 g/dL 32-36 Not Available [facility] ([facility]) [address], [place], [address], 11/17/2023 12:11:49 11/17/19 24 11/17/2023 CBC AUTO W DIFF RDW 12.6 % 11.5-1 4.0 Not Available [facility] ([facility]) [address], [place], [address], 11/17/2023 12:11:49 11/17/19 24 11/17/2023 CBC AUTO W DIFF platelet count 105 K/uL 150-45 0 low Not Available [facility] ([facility]) [address] , [place], [address], 11/17/2023 12:11:49 11/17/19 24 11/17/2023 CBC AUTO W DIFF MPV 10.2 fL 6-9.5 high Not Available [facility] ([facility]) [address], [place], [address], 11/17/2023 12:11:49 11/17/19 24 11/17/2023 CBC AUTO W DIFF neutrophil% 59.7 % 43-65 Not Available [facility] ([facility]) [address] [place], [address], 11/17/2023 12:11:49 11/17/19 24 11/17/2023 CBC AUTO W DIFF lymphocyte% 24.1 % 20.5-4 5.5 Not Available [facility] ([facility]) [address] [place], [address], 11/17/2023 12:11:49 11/17/19 24 11/17/2023 CBC AUTO W DIFF monocyte% 10.5 % 5.5-11 .7 Not Available [facility] ([facility]) [address] [place], [address], 11/17/2023 12:11:49 11/17/19 24 11/17/2023 CBC AUTO W DIFF eosinophil% 4.1 % 0.9-2. 9 high Not Available [facility] ([facility]) [address] [place], [address], 11/17/2023 12:11:49 11/17/19 24 11/17/2023 CBC AUTO W DIFF basophil% 0.9 % 0.2-1. 0 Not Available [facility] ([facility]) [address] [place], [address], 11/17/2023 12:11:49 11/17/19 24 11/17/2023 CBC AUTO W DIFF immature granulocytes % 0.7 % 0.0-0. 8 Not Available [facility] ([facility]) [address] [place], [address], 11/17/2023 12:11:49 11/17/19 24 11/17/2023 CBC AUTO W DIFF nucleated red blood cells % 0.0 % Not Available [facility] ([facility]) [address] [place], [address], 11/17/2023 12:11:49 11/17/19 24 11/17/2023 CBC AUTO W DIFF neutrophil# 2.6 K/uL 2.2-4. 8 Not Available [facility] ([facility]) [address], [address] [facility], [place], [address], 11/17/2023 12:11:49 11/17/19 24 11/17/2023 CBC AUTO W DIFF lymphocyte# 1.1 cell/ mcL 1.3-2. 9 low Not Available [facility] ([facility]) [address], [facility] [facility], [place], [address], 11/17/2023 12:11:49 11/17/19 24 11/17/2023 CBC AUTO W DIFF monocyte# 0.5 cell/ mcL 0.3-0. 8 Not Available [facility] ([facility]) [address], [facility] [facility], [place], [address], 11/17/2023 12:11:49 11/17/19 24 11/17/2023 CBC AUTO W DIFF eosinophil# 0.2 cell/ mcL 0-0.2 Not Available [facility] ([facility]) [address] [place], [address], 11/17/2023 12:11:49 11/17/19 24 11/17/2023 CBC AUTO W DIFF basophil# 0.0 cell/ mcL 0.0-1. 0 Not Available [facility] ([facility]) [address] [place], [address], 11/17/2023 12:11:49 11/17/19 24 11/17/2023 CBC AUTO W DIFF immature gramulocytes # 0.03 K/uL Not Available [facility] ([facility]) [address] [place], [address], 11/17/2023 12:11:49 11/17/19 24 11/17/2023 CBC AUTO W DIFF nucleated red blood cells # 0.00 K/uL Not Available [facility] ([facility]) [address] [facility] [place], [address], 11/17/2023 12:11:49 11/17/19 24 11/17/2023 CBC AUTO W DIFF manual differential NO Not Available [facility] ([facility]) [address], [place], [address], 11/17/2023 12:11:49 11/17/19 24 11/17/2023 PT (PROT HROMB IN TIME) W INR prothrombin time 10.9 secon ds 9.3-11 .4 Not Available [facility] ([facility]) [address] [place], [address], 11/17/2023 12:25:05 11/17/19 24 11/17/2023 PT (PROT [...] nical Heart Valve s Not Available [facility] ([facility]) [address], [place], [address], 11/17/2023 12:25:05 11/17/19 24 11/17/2023 PTT (PART IAL THROM B TIME) PTT (partial thrombin time) 27.1 secon ds 24.5-3 2.8 Not Available [facility] ([facility]) [address], [place], [address], 11/17/2023 12:25:06 11/17/19 24 11/17/2023 IRON STUDY (IRON /TIBC /%SAT ) iron 93 mcg/m L 40-180 Not Available [facility] ([facility]) [address], [place], [address], 11/17/2023 12:42:45 11/17/19 24 11/17/2023 IRON STUDY (IRON /TIBC /%SAT ) TIBC 241 mcg/d L 250-45 0 low Not Available [facility] ([facility]) [address], [place], [address], 11/17/2023 12:42:45 11/17/19 24 11/17/2023 IRON STUDY (IRON /TIBC /%SAT ) %sat 39 15-55 Not Available [facility] ([facility]) [address], [place], [address], 11/17/2023 12:42:45 11/17/19 24 11/17/2023 COMP METAB OLIC PANEL sodium 142 mmol/ L 136-14 5 Not Available [facility] ([facility]) [address] , [place], [address], 11/17/2023 13:08:11 11/17/19 24 11/17/2023 COMP METAB OLIC PANEL potassium 3.7 mmol/ L 3.6-5. 0 Not Available [facility] ([facility]) [address], [place], [address], 11/17/2023 13:08:11 11/17/19 24 11/17/2023 COMP METAB OLIC PANEL chloride 106 mmol/ L 98-107 Not Available [facility] ([facility]) [address] , [place], [address], 11/17/2023 13:08:11 11/17/19 24 11/17/2023 COMP METAB OLIC PANEL carbon dioxide 26.3 mmol/ L 21.0-3 2.0 Not Available [facility] ([facility]) [address] [place], [address], 11/17/2023 13:08:11 07/29/20 24 11/17/2023 COMP METAB OLIC PANEL anion gap 13.4 Not Available [facility] ([facility]) [address] , [place], [address], 11/17/2023 13:08:11 11/17/19 24 11/17/2023 COMP METAB OLIC PANEL glucose 159 mg/dL 70-120 high Not Available [facility] ([facility]) [address] , [place], [address], 11/17/2023 13:08:11 11/17/19 24 11/17/2023 COMP METAB OLIC PANEL BUN 16 mg/dL 7-18 Not Available [facility] ([facility]) [address] , [place], [address], 11/17/2023 13:08:11 11/17/19 24 11/17/2023 COMP METAB OLIC PANEL creatinine 1.0 mg/dL 0.6-1. 3 Not Available [facility] ([facility]) [address] , [place], [address], 11/17/2023 13:08:11 11/17/19 24 11/17/2023 COMP METAB OLIC PANEL glomerular filtration rate TNP mlper min 60- TEST NOT PERFO RMED GFR has only been valid ated from 18 to 70 years of age. Not Available [facility] ([facility]) [address] , [place], [address], 11/17/2023 13:08:11 11/17/19 24 11/17/2023 COMP METAB OLIC PANEL total protein 7.3 g/dL 6.4-8. 2 Not Available [facility] ([facility]) [address] , [place], [address], 11/17/2023 13:08:11 11/17/19 24 11/17/2023 COMP METAB OLIC PANEL albumin 3.5 g/dL 3.4-5. 0 Not Available [facility] ([facility]) [address], [place], [address], 11/17/2023 13:08:11 11/17/19 24 11/17/2023 COMP METAB OLIC PANEL globulin 3.8 Not Available [facility] ([facility]) [address], [place], [address], 11/17/2023 13:08:11 11/17/19 24 11/17/2023 COMP METAB OLIC PANEL alb/glob ratio 0.9 0.7-2 Not Available [facility] ([facility]) [address], [place], [address], 11/17/2023 13:08:11 11/17/19 24 11/17/2023 COMP METAB OLIC PANEL calcium 8.6 mg/dL 8.5-10 .5 Not Available [facility] ([facility]) [address] , [place], [address], 11/17/2023 13:08:11 11/17/19 24 11/17/2023 COMP METAB OLIC PANEL bilirubin total 1.20 mg/dL 0.10-1 .00 high Not Available [facility] ([facility]) [address] , [place], [address], 11/17/2023 13:08:11 11/17/19 24 11/17/2023 COMP METAB OLIC PANEL AST (SGOT) 15 U/L 0-37 Not Available [facility] ([facility]) [address] , [place], [address], 11/17/2023 13:08:11 11/17/19 24 11/17/2023 COMP METAB OLIC PANEL ALT (SGPT) 18 U/L 0-65 Not Available [facility] ([facility]) [address] , [place], [address], 11/17/2023 13:08:11 11/17/19 24 11/17/2023 COMP METAB OLIC PANEL alk phosphatase 79 U/L 46-116 Not Available [facility] ([facility]) [address] , [place], [address], 11/17/2023 13:08:11 11/17/19 24 11/17/2023 THYRO ID STIMU LATIN G HORMO NE thyroid stim hormone 2.28 mIU/L 0.36-3 .74 Not Available [facility] ([facility]) [address], [place], [address], 11/17/2023 13:09:15 11/17/19 24 11/17/2023 KALPANA TIN ferritin, serum 413 NG/mL 3-244 high Not Available [facility] ([facility]) [address], [place], [address], 11/17/2023 13:09:16 11/17/19 24 11/17/2023 VITAM IN B12 vitamin B12 203 pg/mL 193-98 6 *Note : Refer jasmyn Green. New Test Metho d in use. Not Available [facility] ([facility]) [address], [place], [address], 11/17/2023 13:17:56 11/17/19 24 11/17/2023 FOLIC ACID folate (folic acid), serum 11.3 NG/mL 8.6-58 .9 *Note : Refer jasmyn [facility] susu ortega. New Test Metho d in use. Not Available [facility] ([facility]) [address] , [place], [address], 11/17/2023 13:17:57 11/17/19 24 11/21/2023 METHY LMALO LB ACID QUANT methylmaloni c acid, serum 269 nmol/ L 0-378 Speci men Comme nt: Test( s) 96653 7-Met hylma lonic Acid, Serum Speci men Comme nt: was devel oped and its perfo rmanc e kianna cte risti cs Speci men Comme nt: deter mined by [employer] rp. It has not been kristopher ared or appro janette Speci men Comme nt: by the Food and Drug Admin isroxann hough. Perfo rmed at: - [facility] [place] [address] [facility] , [place] [address] Lab Direc tor: Devika ayers MD, Phone : [phone] Not Available [facility] ([facility]) [address], [facility] [facility], [place], [address], 11/21/2023 15:14:20 Result Notes None recorded. Problems Name Problem SNOMED Code Status Onset Date Resolution Date Notes Provider Name and Address Organization Details Recorded Time Sleep apnea 15633927 Active 024 ANTONIOBarrie torres, [place] - [facility] & [place] 09/29/2023 09:42:14 Problem Notes None recorded. Procedures Surgical History Date Name Laterality Status Provider Name and Address Organization Details Recorded Time 09/29/19 24 Venipuncture completed ANTONIO SECORD [place] [facility] & [place] 09/29/2023 10:29:02 hernia repair completed ANTONIO SECORD [place] [facility] [place] 09/29/2023 09:39:10 kidney stone analysis completed ANTONIO SECORD [place] [facility] & [place] 09/29/2023 09:40:06 Imaging Results None recorded. Procedure [...] blood by Pulse oximetry Heart rate Systolic And Diastolic Provider Name and Address Organization Details Last Updated DateTime 4 167.64 cm 52.4 kg/m2 891500. 72 g 97.7 [degF] 98 % 98 % 57 /min 148/78 mm[Hg] ANTONIO LEMUS [place] - [facility] - [place] & [place] 4 09:35:04 Date Recorded Body height Body mass index (BMI) Body weight Body temperature Heart rate Oxygen saturation Oxygen saturation in Arterial blood by Pulse oximetry Systolic And Diastolic Provider Name and Address Organization Details Last Updated DateTime 4 167.64 cm 51.9 kg/m2 066425. 23 g 97.8 [degF] 76 /min 97 % 97 % 129/74 mm[Hg] Marion Valenzuela [facility] & [place] 09:45:33 Social History Question Answer Notes LastModified by Kimbia Details LastModified Time Tobacco Smoking Status Never Smoker ANTONIO torres, [place]G [facility] & [place] 09/29/2023 09:38:45 What Type Of Diet Are You Following? REGULAR Information not available 09/29/2023 Sex: Unknown Functional Status Question Answer Note LastModified by Kimbia Details LastModified Time Do you use any illicit or recreational drugs? No Information not available 09/29/2023 Do you or have you ever used any other forms of tobacco or nicotine? No Information not available 09/29/2023 What is your level of alcohol consumption? None Information not available 09/29/2023 Mental Status None recorded. Family History Nothing Reported. Medical History Condition Response Diabetes N Acid Reflux (GERD) N Arthritis Y Bladder or Kidney Problems Y Hypothyroidism Y Past Encounters Encounter ID Performer Location Encounter Start Date Encounter Closed Date Diagnosis/Indication Diagnosis SNOMED-CT Code Diagnosis ICD10 Code Diagnosis Note [id number] Viky Lynch PA-C [facility] [address] [facility] [address] [place] [address] 09/29/2023 09:18:15 09/29/2023 10:17:41 Thrombocytopenic disorder 788842404 D69.6 Patient presented to [facility] ED on August 24, 2023 with cellulitis of the lower extremity. Patient with chronic venous insufficie ncy and recurrent cellulitis . He has been hospitaliz ed for nephrolith iasis 4 times in 2021. While patient was in the ED on August 24, 2023 he had labs performed with normal white blood cell count at 6.2. Hemoglobin 13.4 and hematocrit 39.7. Platelet count 90895. Normal differenti al. No mention of platelet [...] Will follow up with further recommenda tions. [id number] Arnold Glynn MD [facility] [address] [place] [address] 11/17/2023 09:31:02 11/17/2023 10:36:36 Thrombocytopenic disorder 891943341 D69.6 Patient presented to [facility] ED on August 24, 2023 with cellulitis of the lower extremity. Patient with chronic venous insufficie ncy and recurrent cellulitis . He has been hospitaliz ed for nephrolith iasis 4 times in 2021. While patient was in the ED on August 24, 2023 he had labs performed with normal white blood cell count at 6.2. Hemoglobin 13.4 and hematocrit 39.7. Platelet count 95756. Normal differenti al. No mention of platelet [...] follow up with further recommenda tions. Macrocytosis 098221609 D 75.89 Labs on September 29, 2023 with white blood cell count 4.3. Red blood count 3.9. Hemoglobin 13.5 and hematocrit 40.5. MCV 103.1. Platelet count 77767. Mean platelet volume elevated at 11.8. Total bili li above reference range [id number] 06106 R17 Labs on September 29, 2023 with Bilirubin 1.2. Easy bruising 050770898 R58 Mild increase in bruising. Will follow up additional labs. Obesity 624210283 E66.9 Patient with obesity. Would consider ultrasound liver and spleen to assess for fatty liver changes. Venous sta sis edema of bilateral lower limbs [id number] 6339620 I87.2 Patient with bilateral lower extremity venous stasis changes. Discussed evaluation with vascular surgery. No signs of infection currently. Health Concerns Section Related Observation LastModified by Organization Detai ls LastModified Time None Recorded Concern Status LastModified by Organization Details LastModified Time None Recorded Advance Directives Directive None Recorded Payers Insurance Date Sequence Insurance Name Policy Number Policy Lazcano Covered Member ID Lazcano Member ID Guarantor Name 03/12/2024 1 [place]MEDICARE [place]PLACEMENT HMO) [id number] Beth Magana Gloria [id number] Beth Gene Gloria 03/12/2024 2 [place] Beth Bhandari Gloria [id number] Beth Gene Gloria 11/08/2023 1 [employer] (MEDICARE REPLACEMENT/AD VANTAGE - HMO) Beth Magana Gloria [id number] Beth Bhandari Gloria Notes Date Note Type Note Provider Name and Address Organization Details Recorded Time 09/29/2023 text/html 78-year-old male presents for evaluation thrombocytopenia. Patient presented to [facility] ED on August 24, 2023 with cellulitis of the lower extremity. Patient with chronic venous insufficiency and recurrent cellulitis. He has been hospitalized for nephrolithiasis 4 times in 2021. While patient was in the ED on August 24, 2023 he had labs performed with normal white blood cell count at 6.2. Hemoglobin 13.4 and hematocrit 39.7. Platelet count 77859. Normal differential. No mention of platelet clumping. [...] up with further recommendations. Viky Lynch PA-C [address], [place], [address], [facility] - [place] - [place] & [place] 09/29/2023 11:03:21 11/17/2023 text/html 78-year-old male returns for evaluation thrombocytopenia. Patient presented to [facility] ED on August 24, 2023 with [...] and hematocrit 40.5. MCV 103.1. Platelet count 67277. Mean platelet volume elevated at 11.8. Immature [...] follow-up additional testing today. Arnold Glynn MD [address], [place], [address], [place] [facility] [place] & [place] 11/17/2023 12:45:46
--- OUTSIDE RECORDS SUMMARY | 2024-11-05 12:42 | XMS_ITS | Clinical Summary ---
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 OTHER NONINFECTIOUS LYMPHEDEMA 043789227 (SNOMED CT) 06/15 Active 06/16 Naye Colon MD Lymphedema MORBID OBESITY 405478379 (SNOMED CT) 06/15 Active 06/15 Naye Colon MD Morbid obesity BOIL OF LEFT ANKLE L02.439 (ICD-10-CM ) 06/12 Removed 06/12 Rasheedadimple Wheeler Carbuncle of limb, unspecified ULCER OF LEFT ANKLE 857823530 (SNOMED CT) 06/12 Removed 06/12 Rasheedadimple Wheeler Ankle ulcer LLE CELLULITIS 682.6 (ICD-9-CM) 06/12 Active 06/12 Rasheedadimple Wheeler Cellulitis and abscess of leg, except foot LEFT FOOT CELLULITIS 682.7 (ICD-9-CM) 06/12 Removed 06/12 Rasheedadimple Wheeler Cellulitis and abscess of foot, except toes Medications Medication Instructions Start Date Stop Date Generic Name NDC Provider MUPIROCIN 2 % OINT apply to ulcers daily MUPIROCIN [id number] Naye Colon MD CEFTRIAXONE SODIUM 2 GM SOLR Infuse 2g IV qd INPAT CEFTRIAXONE SODIUM [id number] Janette Florez RN SULFAMETHOXAZOL E-TRIMETHOPRIM 400-80 MG TABS 1 bid SULFAMETHOXAZOLE -TRIMETHOPRIM [id number] Naye Colon MD CEPHALEXIN CAPS CEPHALEXIN CAPS [phone] Naye Colon MD FLAGYL CAPSULE METRONIDAZOLE CAPS [phone] Naye Colon MD CEFTRIAXONE SODIUM 2 GM SOLR Infuse 2g IV qd INPAT CEFTRIAXONE SODIUM [id number] Leeanne Reinoso RN CALCIUM + D TABS CALCIUM CARBONATE-VITAMI N D TABS [id number] Adela G VITAMIN C CAPS ASCORBIC ACID CAPS [id number] Adela G FLAGYL CAPSULE METRONIDAZOLE CAPS [phone] Adela G CEPHALEXIN CAPS CEPHALEXIN CAPS [phone] Adela G NAPROSYN TABS NAPROXEN TABS [id number] Adela Magana LEVOTHROID TABS LEVOTHYROXINE SODIUM TABS [id number] Adela Magana Medications Administered No information available. Allergies, Adverse Reactions, Alerts No information available. 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 Procedures Code Procedure Name Date Entry Date CPT-WC [place] Wound CPT-WC [place] Wound CPT-WCR Wound Care Referral [facility] 06/22 CPT-DC Discontinue IV antibiotics 2 CPT-sl STAT Labs CPT-31502 BMP CPT-WC [place] Wound CPT-WCR Wound Care Referral [facility] 06/15 CPT-WC [place] Wound CPT-J0696 Ceftriaxone CPT-32492 Wound Culture and Sensitivity Vital Signs Date [...]
--- OUTSIDE RECORDS SUMMARY | 2024-11-05 12:42 | XMS_ITS | Encounter Summary ---
Author Organization [facility] Address [address] [place] [address] Care Team Providers Care Staff Radiologist Name Role Phone Wm Tobias MD Primary Care Provider [phone] Encounter Details Date Type Department Care Team (Late st Contact Info) Description 08/09/2021 Retail Pharmacy Consultation [facility] [address] [address] [facility] [address] [place] [address] Social History Tobacco Use Types Packs/Day Years Used Date Smoking Tobacco: Never Smokeless Tobacco: Never Alcohol Use Standard Drinks/Week Comments Never 0 (1 standard drink = 0.6 oz pur e alcohol) AUDIT-C Answer Date Recorded Q1: How often do you have a drink containing alcohol? Never 08/07/2021 Q2: How many drinks containi ng alcohol do you have on a typical day when you are drinking? Patient does not drink Q3: How often do you have si x or more drinks on one occasion? Never 08/07/2021 Overall Financial Resource Strain (CARDIA) Answe r Date Recorded How hard is it for you to pa y for the very basics like food, housing, medical care, and heating? Not hard at all 08/09/2021 Hunger Vital Sign Answer Date Recorded Within the past 12 months, y ou worried that your food would run out before you got the money to buy more. Never true 08/10/19 22 Within the past 12 months, t he food you bought just didn't last and you didn't have money to get more. Never true 08/09/2021 PRAPARE - Transportation Answer Date Re corded In the past 12 months, has l ack of transportation kept you from medical appointments or from getting medications? No 07/21 In the past 12 months, has l ack of transportation kept you from meetings, work, or from getting things needed for daily living? No 08/09/2021 Housing Stability Vital Sign Answer Heriberto e [...] place to sleep or slept in a group home (including now)? No 08/09/2021 Education Answer Date Recorded What is the highest level of school you have completed or the highest degree you have received? 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 Not on file Not on file Not on file documented as of this encounter Plan of Treatment Upcoming Encounters Date Type Department Care Team (Late st Contact Info) Description 02/28/2025 12:50 PM EST Office Visit [facility] [address] [place] [address] Olvin Mo MD [facility] [place] [address] documented as of this encounter Visit Diagnoses Not on filedocumented in this encounter Additional Health Concerns Infection Onset Date Last Indicated Resolved Time COVID (rule out) 08/28/2021 08/28/2021 08/31/2021 9:31 AM EDT documented as of this encounter Care Teams Staff Radiologist Relationship Specialty Start Date End Date Wm Tobias MD [address] [facility] [address] [place] [address] PCP - General Adolescent Medicine 08/23/24 documented as of this encounter
--- OUTSIDE RECORDS SUMMARY | 2024-11-05 12:42 | XMS_ITS | Clinical Summary ---
[facility] Address [address] [id number] Care Team Providers Care Police Officer Booking Name Role Phone Wm Tobias MD Primary Care Provider [phone] Allergies Active Allergy Reactions Criticality Noted Date Comments Chlorhexidine Hives Medium 05/30/2021 Latex Rash Low 05/14/2021 Medications oxybutynin XL (Ditropan XL) 10 MG 24 hr tabletIndicatio ns:Nephrolithia sis Take 1 tablet by mouth Daily As Needed (bladder spasm). 10 tablet 2 Active Additional Information Patient not taking.Reported on 10/25/2024 phenazopyridine (PYRIDIUM) 100 MG tabletIndicatio ns:Nephrolithia sis Take 1 tablet by mouth 3 (Three) Times a Day As Needed (urinary burning). 21 tablet 2 Active Additional Information Patient not taking.Reported on 10/25/2024 tamsulosin (FLOMAX) 0.4 MG capsule 24 hr capsuleIndicati ons:Nephrolithi asis Take 1 capsule by mouth Every Night. 10 capsule 2 Active Additional Information Patient not taking.Reported on 10/25/2024 meloxicam (MOBIC) 15 MG tablet Take 1 tablet by mouth once daily 90 tablet 2 Active Additional Information Patient not taking.Reported on 10/25/2024 levothyroxine (SYNTHROID, LEVOTHROID) 200 MCG tablet Take 1 tablet by mouth once daily 90 tablet 2 Active Additional Information Patient taking differently: 200 mcg Oral Every [employer]ist, Take 1 tablet daily along with the 25 mcg tablet for a total of 225 mcg, Reported on 10/25/2024 levothyroxine (SYNTHROID, LEVOTHROID) 25 MCG tablet Take 1 tablet by mouth Every Morning. Take 1 tablet daily along with the 200 mcg tablet for a total of 225 mcg Active acetaminophen (TYLENOL) 325 MG tablet Take 2 tablets by mouth Every 4 (Four) Hours As Needed for Mild Pain. Active aspirin 81 MG chewable tablet Chew 1 tablet 2 (Two) Times a Day. Active oxyCODONE-aceta minophen (PERCOCET) 5-325 MG per tabletIndicatio ns:Closed fracture of right hip, initial encounter Take 1 tablet by mouth Every 4 (Four) Hours As Needed for Moderate Pain or Severe Pain. Active Additional Information Patient not taking.Reported on 10/25/2024 mupirocin (BACTROBAN) 2 % ointment Apply 1 Application topically to the appropriate area as directed Daily. Active polyethylene glycol (MIRALAX) 17 g packet Take 17 g by mouth Daily As Needed (Use if senna-docusate is ineffective). Active Additional Information Patient not taking.Reported on 10/25/2024 sennosides-docu sate (PERICOLACE) 8.6-50 MG per tablet Take 2 tablets by mouth 2 (Two) Times a Day. Hold for loose stool Active Additional Information Patient not taking.Reported on 10/25/2024 triamcinolone (KENALOG) 0.1 % ointment APPLY TOPICALLY 3 TIMES DAILY FOR 7 DAYS Active traMADol (ULTRAM) 50 MG tablet Take 1 tablet by mouth Every 8 (Eight) Hours As Needed. for pain Active clobetasol propionate (TEMOVATE) 0.05 % cream APPLY CREAM TOPICALLY TO AFFECTED AREA TWICE DAILY FOR UP TO 2 WEEKS. TAKE ONE WEEK BREAK AND REPEAT NEEDED UNTIL CLEAR. DO NOT USE ON FACE Active Active Problems Problem Noted Date Diagnosed Date Hip fracture 08/21/2024 Fall 08/21/2024 Nephrolithiasis 05/02/2021 Overview (05/02/2021): Added automatically from request for surgery [id number] Encounters Date Type Department Care Team Description 10/25/2024 2:10 PM EDT Office Visit [facility] [address] [facility] [address] [place] [address] Marcin Mo MD Primary osteoarthritis of right knee (Primary Dx) 10/25/2024 Travel 08/23/2024 Travel 08/22/2024 10:06 AM EDT Anesthesia Event [facility] OR [address] [place] [id number] Colette Fernandez MD 08/22/2024 9:45 AM EDT - 08/22/2024 11:58 AM EDT Surgery [facility] OR [address] [place] [address] Valdo Gee MD HIP TROCHANTERIC NAILING WITH INTRAMEDULLARY HIP SCREW RIGHT [39623 (CPT )] 08/21/2024 4:23 PM EDT - 08/26/2024 2:30 PM EDT Hospital Encounter [facility] [address] [place] [address] Samir Gordillo MD Anderson, MD Eduar Gardner, Silva Miller, Jasmyn Logan MD Lyons, Andrea L, MD Brown, Hannah, MD Closed fracture of right hip, initial encounter (Primary Dx) Discharge Disposition: Custodial Facility (DC - External) from Last 3 Months Family History Medical History Relation Name Comments Kidney failure Father Cancer Mother Relation Name Status Comments Father Mother Social History Tobacco Use Types Packs/Day Years Used Date Smoking Tobacco: Never Smokeless Tobacco: Never Tobacco Cessation:Counseling Given: No Alcohol Use Standard Drinks/Week Comments Never 0 (1 standard drink = 0.6 oz pur e alcohol) [facility] Utilities Answer Date Recorded In the past 12 months has [email or web address], gas, oil, or water [email or web address] threatened to shut off services in your [...] care, and heating? Not very hard 08/23/2024 [facility] - Occupational Stress [...] place to sleep or slept in a alf (including now)? 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 Not on file Not on file Last Filed Vital Signs Vital Sign Reading Time Taken Comments Blood Pressure 133/76 08/26/2024 10:38 AM EDT Pulse 90 08/26/2024 10:38 AM EDT Temperature 36.8 C (98.3 F) 08/26/2024 10:38 AM EDT Respiratory Rate 18 08/26/2024 10:38 AM EDT Oxygen Saturation 96% 08/26/2024 10:38 AM EDT Inhaled Oxygen Concentration - - Weight 137 kg (301 lb 6.4 oz) 10/25/2024 1:36 PM EDT Height 177.8 cm (5' 10 ) 10/25/2024 1:36 PM EDT Body Mass Index 43.25 10/25/2024 1:36 PM EDT Plan of Treatment Upcoming Encounters Date Type Department Care Team (Late st Contact Info) Description 02/28/2025 12:50 PM EST Office Visit [facility] MEDICINE [address] [place] [address] Marcin Mo MD [address] [id number] Health Maintenance Due Date Last Done Comments TDAP/TD VACCINES (1 - Tdap) 1964 Pneumococcal Vaccine 50+ (1 of 1 - PCV) 1994 ZOSTER VACCINE (1 of 2) 1994 RSV Vaccine - Adults (1 - 1-dose 75+ series) 0 ANNUAL WELLNESS VISIT 09/13/2020 COVID-19 Vaccine ( - season) 2023 INFLUENZA VACCINE 01/19/2025 Medical Devices Implanted Type Area Sole Conforming Machine Operator Device Identifier Shelf Expiration Date Model / Serial / Lot Kt Seal Hemos Abs Floseal Matrx Fast/Prep 5ml - [id number] Implanted:Qty : 1 on 05/23/2021 by Kenny Wheeler MD at [facility] Implant Right: Ureter [facility] 12/26/2022 [id number] / / [id number] Kt Seal Hemos Abs Floseal Matrx Fast/Prep 5ml - [id number] Implanted:Qty : 1 on 07/25/2021 by Kenny Wheeler MD at [facility] Implant Left: Ureter [facility] 12/26/2022 [id number] / / [id number] Scrw Lk T2 Alpha Ti 5x40mm Strl - [id number] Implanted:Qty : 1 on 08/22/2024 by Valdo Gee MD at [facility] Implant Right: Hip EMELY HUMBERTO 03/[birth year]2034 [id number] / / [id number] Scrw Lag Hip Gamma4 10.4v037ca - [id number] Implanted:Qty : 1 on 08/22/2024 by Valdo Gee MD at [facility] Implant Right: Hip EMELY HUMBERTO 01/18/2034 [id number] / / [id number] Nail Intermd Fem/Hip Gamma4 125deg [id number] Rt - [id number] Implanted:Qty : 1 on 08/22/2024 by Valdo Gee MD at [facility] Implant Right: Hip EMELY HUMBERTO 11/18/2033 [id number] / / [id number] Stnt Percuflx No Gw 7x28 - [id number] Implanted:Qty : 1 on 05/23/2021 by Kenny Wheeler MD at [facility] Stent Right: Ureter [employer] 10/16/2023 [id number] / / [id number] Stnt Percuflx No Gw 7x28 - [id number] Implanted:Qty : 1 on 07/25/2021 by Kenny Wheeler MD at [facility] Stent Left: Ureter [employer] 01/25/2024 [id number] / / [id number] Stnt Percuflx No Gw 7x28 - [id number] Implanted:Qty : 1 on 08/08/2021 by Kenny Wheeler MD at [facility] Stent Left: Ureter [employer] 11/15/2023 [id number] / / [id number] Stnt Percuflx No Gw 4.8x28 - [id number] Implanted:Qty : 1 on 08/31/2021 by Kenny Wheeler MD at [facility] Stent Left: Ureter [employer] 10/25/2022 [id number] / / [id number] Explanted Type Area Sole Conforming Machine Operator Device Identifier Shelf Expiration Date Model / Serial / Lot Pin Precision Tpr 3.2/3.4e374pg - [id number] Explanted:Qty: 1 on 08/22/2024 by Valdo Gee MD at [facility] Implant Right: Hip EMELY HUMBERTO 05/[birth year]/2034 [id number] / / [id number] Kwire Thrd Recon 3.0p887pf - [id number] Explanted:Qty: 1 on 08/22/2024 by Valdo Gee MD at [facility] Implant Right: Hip EMELY HUMBERTO 05/21/2034 [id number] / / [id number] Procedures Procedure Name Priority Date/Time Associated Diagnosis Comments MD ARTHROCENTESIS ASPIR&/INJ MAJOR JT/BURSA W/O US Routine 10/25/2024 2:29 PM EDT Primary osteoarthritis of right knee XR KNEE 4+ VW RIGHT Routine 10/25/2024 2 :05 PM EDT Primary osteoarthritis of right knee CBC (NO DIFF) Routine 08/25/2024 8:12 AM EDT POCT GLUCOSE FINGERSTICK Routine 08/25/2024 7:58 AM EDT ECG 12-LEAD Routine 08/24/2024 12:59 PM EDT BASIC METABOLIC PANEL Routine 08/24/2024 11:30 AM EDT CBC (NO DIFF) Routine 08/24/2024 11:30 AM EDT XR CHEST 1 VW Routine 08/23/2024 2:20 PM EDT TSH Urgent 08/22/2024 1:10 PM EDT MAGNESIUM Urgent 08/22/2024 1:10 PM EDT HEMOGLOBIN A1C Urgent 08/22/2024 1:10 PM EDT COMPREHENSIVE METABOLIC PANEL Urgent 08/22/2024 1:10 PM EDT CBC WITH AUTO DIFFERENTIAL Urgent 08/22/2024 1:10 PM EDT FL C ARM DURING SURGERY Routine 08/22/2024 11:19 AM EDT ANESTHESIA INTUBATION Routine 08/22/2024 10:31 AM EDT MD TX INTER/MD/SUBTRCHNTRIC FEM FX IMED IMPLTSCREW 08/22/2024 9:51 AM EDT ECG 12-LEAD Routine 08/22/2024 8:42 AM EDT CBC AND DIFFERENTIAL STAT 08/21/2024 6:52 PM EDT CBC WITH AUTO DIFFERENTIAL STAT 08/21/2024 6:52 PM EDT MAGNESIUM STAT 08/21/2024 6:52 PM EDT COMPREHENSIVE METABOLIC PANEL STAT 08/21/2024 6:52 PM EDT WOUND OSTOMY EVAL AND TREAT Routine 08/21/2024 5:[address] OUTSIDE HEAD Routine 08/21/2024 5:[address] OUTSIDE SPINE Routine 08/21/2024 5:13 PM EDT XR OUTSIDE EXTREMITY Routine 08/21/2024 5:13 PM EDT XR OUTSIDE EXTREMITY Routine 08/21/2024 5:13 PM EDT XR OUTSIDE EXTREMITY Routine 08/21/2024 5:13 PM EDT from Last 3 Months Results * MD ARTHROCENTESIS ASPIR&/INJ MAJOR JT/BURSA W/O US (10/25/2024 [...] to verify the correct patient, procedure, equipment, production support developer and site/side marked as required. Patient was prepped and draped in the usual sterile fashion. Marcin Mo MD PROCEDURE/MINOR SURGICAL ORDER CINTIA Final [...] no acute bony abnormalities. Advanced knee arthritis. Marcin Mo MD IMG DIAGNOSTIC IMAGING ORDERAB LES Final Result * (ABNORMAL) CBC (No Diff) (08/25/2024 8:12 AM EDT) Only the most recent of2 resultswithin the time period is included. WBC 8.18 3.40 - 10.80 10*3/mm3 08/25/2024 8:31 AM EDT [facility] RBC 2.53(L) 4.14 - 5.80 10*6/mm3 08/25/2024 8:31 AM EDT [facility] Hemoglobin 8.6(L) 13.0 - 17.7 g/dL 08/25/2024 8:31 AM EDT [facility] Hematocrit 25.8(L) 37.5 - 51.0 % 08/25/2024 8:31 AM EDT [facility] MCV 102.0(H) 79.0 - 97.0 fL 08/25/2024 8:31 AM EDT [facility] MCH 34.0(H) 26.6 - 33.0 pg 08/25/2024 8:31 AM EDT [facility] MCHC 33.3 31.5 - 35.7 g/dL 08/25/2024 8:31 AM EDT [facility] RDW 13.2 12.3 - 15.4 % 08/25/2024 8:31 AM EDT [facility] RDW-SD 48.5 37.0 - 54.0 fl 08/25/2024 8:31 AM EDT [facility] MPV 9.8 6.0 - 12.0 fL 08/25/2024 8:31 AM EDT [facility] Platelets 101(L) 140 - 450 10*3/mm3 08/25/2024 8:31 AM EDT [facility] Blood Venipuncture / Unknown 08/25/2024 8:12 AM EDT 08/25/2024 8:20 AM EDT Rodney Petersen MD LAB BLOOD ORDERABLES Final Res ult [facility]
[address] [place] [address], [place] [phone] * (ABNORMAL) POC Glucose Once (08/25/2024 7:58 AM EDT) Glucose 168(H) 70 - 130 mg/dL 08/25/2024 8:00 AM EDT [facility] Blood 08/25/2024 7:58 AM EDT 08/25/2024 8:00 AM EDT Lori Amaya MD POINT OF CARE TEST ORDERABLES Fi nal Result [facility]
[address] [place] [address], [place] [phone] * ECG 12 Lead Rhythm Change (08/24/2024 12:59 PM EDT) Only the most recent of2 resultswithin the time period is included. QT Interval 336 ms BH ECG QTC Interval 437 ms BH ECG 08/24/2024 12:5 9 PM EDT 08/24/2024 7:29 PM EDT Narrative ECG - 08/24/2024 7:29 PM EDT Test Reason : Rhythm Change Blood Pressure : */* mmHG Vent. Rate : 102 BPM Atrial Rate : 102 BPM P-R Int : 194 ms QRS Dur : 82 ms QT Int : 336 ms P-R-T Axes : 38 24 44 degrees QTcB Int : 437 ms Sinus tachycardia with premature atrial complexes Otherwise normal ECG When compared with ECG of 22-Aug-2024 08:42, Prior ECG has poor data quality. No comparison can be performed. Confirmed by MARCIN GONZALEZ ([id number]) on 08/24/2024 7:29:04 PM Referred By: Confirmed By: MARCIN GONZALEZ Procedure Note Marcin Gonzalez MD - 08/24/2024 Test Reason : Rhythm Change Blood Pressure : */* mmHG Vent. Rate : 102 BPM Atrial Rate : 102 BPM P-R Int : 194 ms QRS Dur : 82 ms QT Int : 336 ms P-R-T Axes : 38 24 44 degrees QTcB Int : 437 ms Sinus tachycardia with premature atrial complexes Otherwise normal ECG When compared with ECG of 22-Aug-2024 08:42, Prior ECG has poor data quality. No comparison can be performed. Confirmed by MARCIN GONZALEZ ([id number]) on 08/24/2024 7:29:04 PM Referred By: Confirmed By: MARCIN GONZALEZ us Rodney Petersen MD ECG ORDERABLES Final Result ECG * (ABNORMAL) Basic Metabolic Panel (08/24/2024 11:30 AM EDT) Glucose 198(H) 65 - 99 mg/dL 08/24/2024 1:33 PM EDT [facility] BUN 27(H) 8 - 23 mg/dL 08/24/2024 1:33 PM EDT [facility] Creatinine 1.04 0.76 - 1.27 mg/dL 08/24/2024 1:33 PM EDT [facility] Sodium 137 136 - 145 mmol/L 08/24/2024 1:33 PM EDT [facility] Potassium 4.3 3.5 - 5.2 mmol/L 08/24/2024 1:33 PM EDT [facility] Chloride 101 98 - 107 mmol/L 08/24/2024 1:33 PM EDT [facility] CO2 23.0 22.0 - 29.0 mmol/L 08/24/2024 1:33 PM EDT [facility] Calcium 8.4(L) 8.6 - 10.5 mg/dL 08/24/2024 1:33 PM EDT [facility] BUN/Creatinine Ratio 26.0(H) 7.0 - 25.0 08/24/2024 1:33 PM EDT [facility] Anion Gap 13.0 5.0 - 15.0 mmol/L 08/24/2024 1:33 PM EDT [facility] eGFR 72.6 >60.0 mL/min/1.7 3 08/24/2024 1:33 PM EDT [facility] Blood Venipuncture / Unknown 08/24/2024 11:30 AM EDT 08/24/2024 1:02 PM EDT [facility] - 08/24/2024 1:33 PM EDT GFR Categories in Chronic Kidney Disease (CKD) GFR Category GFR (mL/min/1.73) Interpretation G1 90 or greater Normal or high (1) G2 60-89 Mild decrease (1) G3a 45-59 Mild to moderate decrease G3b 30-44 Moderate to severe decrease G4 15-29 Severe decrease G5 14 or less Kidney failure (1)In the absence of evidence of kidney disease, neither GFR category G1 or G2 fulfill the criteria for CKD. eGFR calculation 2020 CKD-EPI creatinine equation, which does not include race as a factor us Rodney Petersen MD LAB BLOOD ORDERABLES Final Res ult [facility]
[address] [place] [address], * XR Chest 1 View (08/23/2024 2:20 PM EDT) Anatomical Region Laterality Modality Body N/A Radiographic Margo ging 08/23/2024 4:07 PM EDT Impressions 08/23/2024 4:18 PM EDT Impression: No acute cardiopulmonary abnormality is identified. Electronically Signed: Sayda Tripp MD 08/23/2024 4:18 PM EDT Workstation ID: [id number] Narrative 08/23/2024 4:18 PM EDT XR CHEST 1 VW Date of Exam: 08/23/2024 2:06 PM EDT Indication: post op hypoxia Comparison: Two-view chest x-ray 01/22/2012, AP chest x-ray 08/25/2006. Findings: Cardiac silhouette remains mildly enlarged. Lungs are adequately expanded and appear clear. Procedure Note Sayda Tripp MD - 08/23/2024 XR CHEST 1 VW Date of Exam: 08/23/2024 2:06 PM EDT Indication: post op hypoxia Comparison: Two-view chest x-ray 01/22/2012, AP chest x-ray 08/25/2006. Findings: Cardiac silhouette remains mildly enlarged. Lungs are adequately expandedand appear clear. IMPRESSION: Impression: No acute cardiopulmonary abnormality is identified. Electronically Signed: Sayda Tripp MD 08/23/2024 4:18 PM EDT Workstation ID: [id number] Rodney Petersen MD IMG DIAGNOSTIC IMAGING ORDERAB LES Final Result * (ABNORMAL) CBC Auto Differential (08/22/2024 1:10 PM EDT) Only the most recent of2 resultswithin the time period is included. WBC 12.82(H) 3.40 - 10.80 10*3/mm3 08/22/2024 2:18 PM EDT [facility] RBC 3.69(L) 4.14 - 5.80 10*6/mm3 08/22/2024 2:18 PM EDT [facility] Hemoglobin 12.6(L) 13.0 - 17.7 g/dL 08/22/2024 2:18 PM EDT [facility] Hematocrit 38.4 37.5 - 51.0 % 08/22/2024 2:18 PM EDT [facility] MCV 104.1(H) 79.0 - 97.0 fL 08/22/2024 2:18 PM EDT [facility] MCH 34.1(H) 26.6 - 33.0 pg 08/22/2024 2:18 PM EDT [facility] MCHC 32.8 31.5 - 35.7 g/dL 08/22[facility]2024 [facility] RDW 12.9 12.3 - 15.4 % 08/22/2024 2:18 PM [facility] RDW-SD 49.0 37.0 - 54.0 fl 08/22/2024 2:[facility] MPV 10.6 6.0 - 12.0 fL 08/22/2024 2:18 PM [facility] Platelets 96(L) 140 - 450 10*3/mm3 08/22/2024 2:18 PM [facility] Comment:Verified by repeat a nalysis. Neutrophil % 86.6(H) 42.7 - 76.0 % 08/22/2024 2:18 [facility] Lymphocyte % 5.8(L) 19.6 - 45.3 % 08/22/2024 2:18 [facility] Monocyte % 4.8(L) 5.0 - 12.0 % 08/22/2024 2:18 PM EDT [facility] Eosinophil % 0.2(L) 0.3 - 6.2 % 08/22/2024 2:18 PM [facility] Basophil % 0.6 0.0 - 1.5 % 08/22/2024 2:18 PM EDT [facility] Immature Grans % 2.0(H) 0.0 - 0.5 % 08/22/2024 2:18 PM EDT [facility] Neutrophils, Absolute 11.11(H) 1.70 - 7.00 10*3/mm3 08/22/2024 2:18 PM EDT [facility] Lymphocytes, Absolute 0.74 0.70 - 3.10 10*3/mm3 08/22/2024 2:18 PM EDT [facility] Monocytes, Absolute 0.61 0.10 - 0.90 10*3/mm3 08/22/2024 2:18 PM EDT [facility] Eosinophils, Absolute 0.02 0.00 - 0.40 10*3/mm3 08/22/2024 2:18 PM EDT [facility] Basophils, Absolute 0.08 0.00 - 0.20 10*3/mm3 08/22/2024 2:18 PM EDT [facility] Immature Grans, Absolute 0.26(H) 0.00 - 0.05 10*3/mm3 08/22/2024 2:18 PM EDT [facility] nRBC 0.2 0.0 - 0.2 /100 WBC 08/22/2024 2:18 PM EDT [facility] Blood Venipuncture / Unknown 08/22/2024 1:10 PM EDT 08/22/2024 1:57 PM EDT us Valdo Gee MD LAB BLOOD ORDERABLES Final R esult [facility]
[address] [place] [address], * TSH (08/22/2024 1:10 PM EDT) TSH 2.930 0.270 - 4.200 uIU/mL 08/22/2024 2:32 PM EDT [facility] Blood Venipuncture / Unknown 08/22/2024 1:10 PM EDT 08/22/2024 1:58 PM EDT us Valdo Gee MD LAB BLOOD ORDERABLES Final R esult Performing Organization Address City/[facility]/ZIP Co de Phone Number [facility]
[address] [place] [address], [place] [phone] * Magnesium (08/22/2024 1:10 PM EDT) Only the most recent of2 resultswithin the time period is included. Pathologist [facility] Magnesium 2.0 1.6 - 2.4 mg/dL 08/22/2024 2:27 PM EDT [facility] Blood Venipuncture / Unknown 08/22/2024 1:10 PM EDT 08/22/2024 1:58 PM EDT us Valdo Gee MD LAB BLOOD ORDERABLES Final R esult Performing Organization Address [facility] Co de Phone Number [facility]
[address] [place] [address], [place] [phone] * (ABNORMAL) Hemoglobin A1c (08/22/2024 1:10 PM EDT) Pathologist [facility] Hemoglobin A1C 6.50(H) 4.80 - 5.60 % 08/22/2024 3:06 PM EDT [facility] Blood Venipuncture / Unknown 08/22/2024 1:10 PM EDT 08/22/2024 1:57 PM EDT Narrative [facility] - 08/22/2024 3:06 PM EDT Hemoglobin A1C Ranges: Increased Risk for Diabetes 5.7% to 6.4% Diabetes >= 6.5% Diabetic Goal < 7.0% us Valdo Gee MD LAB BLOOD ORDERABLES Final R esult Performing Organization Address City/[facility]/ZIP Co de Phone Number [facility]
[address] [place] [address], [place] [phone] * (ABNORMAL) Comprehensive Metabolic Panel (08/22/2024 1:10 PM EDT) Only the most recent of2 resultswithin the time period is included. Glucose 193(H) 65 - 99 mg/dL 08/22/2024 2:27 PM EDT [facility] BUN 19 8 - 23 mg/dL 08/22/2024 2:27 PM EDT [facility] Creatinine 1.14 0.76 - 1.27 mg/dL 08/22/2024 2:27 PM EDT [facility] Sodium 137 136 - 145 mmol/L 08/22/2024 2:27 PM EDT [facility] Potassium 4.6 3.5 - 5.2 mmol/L 08/22/2024 2:27 PM EDT [facility] Chloride 103 98 - 107 mmol/L 08/22/2024 2:27 PM EDT [facility] CO2 24.0 22.0 - 29.0 mmol/L 08/22/2024 2:27 PM EDT [facility] Calcium 8.3(L) 8.6 - 10.5 mg/dL 08/22/2024 2:27 PM EDT [facility] Total Protein 6.5 6.0 - 8.5 g/dL 08/22/2024 2:27 PM EDT [facility] Albumin 3.8 3.5 - 5.2 g/dL 08/22/2024 2:27 PM EDT [facility] ALT (SGPT) 15 1 - 41 U/L 08/22/2024 2:27 PM EDT [facility] AST (SGOT) 19 1 - 40 U/L 08/22/2024 2:27 PM EDT [facility] Alkaline Phosphatase 72 39 - 117 U/L 08/22/2024 2:27 PM EDT [facility] Total Bilirubin 2.4(H) 0.0 - 1.2 mg/dL 08/22/2024 2:27 PM EDT [facility] Globulin 2.7 gm/dL 08/22/2024 2:27 PM EDT [facility] Comment:Calculated Result A/G Ratio 1.4 g/dL 08/22/2024 2:27 PM EDT [facility] BUN/Creatinine Ratio 16.7 7.0 - 25.0 08/22/2024 2:27 PM EDT [facility] Anion Gap 10.0 5.0 - 15.0 mmol/L 08/22/2024 2:27 PM EDT [facility] eGFR 65.0 >60.0 mL/min/1.7 3 08/22/2024 2:27 PM EDT [facility] Blood Venipuncture / Unknown 08/22/2024 1:10 PM EDT 08/22/2024 1:58 PM EDT Narrative [facility] - 08/22/2024 2:27 PM EDT GFR Categories in Chronic Kidney Disease (CKD) GFR Category GFR (mL/min/1.73) Interpretation G1 90 or greater Normal or high (1) G2 60-89 Mild decrease (1) G3a 45-59 Mild to moderate decrease G3b 30-44 Moderate to severe decrease G4 15-29 Severe decrease G5 14 or less Kidney failure (1)In the absence of evidence of kidney disease, neither GFR category G1 or G2 fulfill the criteria for CKD. eGFR calculation 2020 CKD-EPI creatinine equation, which does not include race as a factor Valdo Gee MD LAB BLOOD ORDERABLES Final R esult [facility]
[address] [place] [address], * [place] C Arm During Surgery (08/22/2024 11:19 AM EDT) Narrative SYSTEMGENERATED, DOCUMENTATION - 08/22/2024 11:20 AM EDT This procedure was auto-finalized with no dictation required. us Valdo Gee MD IMG FLUOROSCOPY ORDERABLES F inal Result * BH AN ETT AIRWAY (08/22/2024 10:31 AM EDT) Narrative Cathi Dejesus CRNA - 08/22/2024 10:31 AM EDT Cathi Dejesus CRNA 08/22/2024 10:32 AM Airway Reason: elective Date/Time: 08/22/2024 10:12 AM Airway not difficult General Information and Staff Patient location during procedure: OR [employer]/CAA: Cathi Dejesus CRNA Indications and Patient Condition Indications for airway management: airway protection Preoxygenated: yes MILS not maintained throughout Mask difficulty assessment: 2 - vent by mask + OA or adjuvant +/- NMBA Final Airway Details Final airway type: endotracheal airway Successful airway: ETT Cuffed: yes Successful intubation technique: video laryngoscopy Adjuncts used in placement: intubating stylet Endotracheal tube insertion site: oral Blade: Mason Blade size: 4 ETT size (mm): 7.5 Cormack-Lehane Classification: grade I - full view of glottis Placement verified by: chest auscultation and capnometry Measured from: lips ETT/EBT to lips (cm): 20 Number of attempts at approach: 1 Assessment: lips, teeth, and gum same as pre-op and atraumatic intubation Additional Comments Negative epigastric sounds, Breath sound equal bilaterally with symmetric chest rise and fall Cathi Dejesus CRNA ANESTHESIA ORDERABLES Fin al Result * CT Outside Head (08/21/2024 5:13 PM EDT) Narrative SYSTEMGENERATED, DOCUMENTATION - 08/21/2024 5:13 PM EDT This procedure was auto-finalized with no dictation required. Valdo Gee MD IMG CT ORDERABLES Final Resu lt * XR Outside Extremity (08/21/2024 5:13 PM EDT) Only the most recent of3 resultswithin the time period is included. Narrative SYSTEMGENERATED, DOCUMENTATION - 08/21/2024 5:13 PM EDT This procedure was auto-finalized with no dictation required. Valdo Gee MD IMG DIAGNOSTIC IMAGING ORDER CINTIA Final Result * CT Outside Spine (08/21/2024 5:13 PM EDT) Narrative SYSTEMGENERATED, DOCUMENTATION - 08/21/2024 5:13 PM EDT This procedure was auto-finalized with no dictation required. Valdo Gee MD [facility] ORDERABLES Final Resu lt from Last 3 Months Insurance [employer] MED[employer]ARE ADVANT[employer] HMO Advance Directives * CPR (Attempt to Resuscitate) (Latest Code Status on File) Date Activated Date Inactivated Comments 08/21/2024 5:26 PM 08/26/2024 4:41 PM Question Answer Comments Code Status (Patient has no pulse and is not breathing): CPR (Attempt to Resuscitate) Medical Interventions (Patie nt has pulse or is breathing): Full Support Level Of Support Discussed With: Patient Care Teams Police Officer Booking Relationship Specialty Start Date End Date Wm Tobias MD [address] [place] [address] PCP - General Adolescent Medicine 08/23/24
--- OUTSIDE RECORDS SUMMARY | 2024-11-05 12:42 | XMS_ITS | Encounter Summary ---
Author Organization [facility] Address [address] [place] [id number] Care Team Providers Care Photograph Printer Name Role Phone Wm Tobias MD Primary Care Provider [phone] Encounter Details Date Type Department Care Team (Late st Contact Info) Description 08/06/2021 Telephone [facility] UROLOGY [address] [facility] [address] [phone] Kenny Wheeler MD [address] [address] Social History Tobacco Use Types Packs/Day [...] place to sleep or slept in a nursing home (including now)? 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 Not on file Not on file documented as of this encounter Functional Status documented as of this encounter Plan of Treatment Upcoming Encounters Date Type Department Care Team (Late st Contact Info) Description 02/28/2025 12:50 PM EST Office Visit [facility] ORTHOPEDICS & SPORTS MEDICINE [address] [place] [address] Olvin Mo MD [address] [facility] [address] [place] [address] documented as of this encounter Visit Diagnoses Not on filedocumented in this encounter Additional Health Concerns Infection Onset Date Last Indicated Resolved Time COVID Screen (preop/placement) 08/01/2021 08/28/2021 08/07/2021 5:50 PM EDT COVID (rule out) 08/28/2021 08/28/2021 08/31/2021 9:31 AM EDT documented as of this encounter Care Teams Photograph Printer Relationship Specialty Start Date End Date Wm Tobias MD [address] [facility] [address] [facility] [address] [facility] [place] [address] PCP - General Adolescent Medicine 08/23/24 documented as of this encounter
--- OUTSIDE RECORDS SUMMARY | 2024-11-05 12:42 | XMS_ITS | Encounter Summary ---
Author Organization [facility] Address [address] [place] [id number] Care Team Providers Care Hogshead Inspector Name Role Phone Wm Tobias MD Primary Care Provider [phone] Encounter Details Date Type Department Care Team (Latest Contact Info) Description 10/25/2024 Travel Social History Tobacco Use Types Packs/Day Years Used Date Smoking Tobacco: Never Smokeless Tobacco: Never Alcohol Use Standard Drinks/Week Comments Never 0 (1 standard drink = 0.6 oz pur e alcohol) [facility] Utilities Answer Date Recorded In the past 12 months has [employer], gas, oil, or water [employer] threatened to shut off services in your [...] care, and heating? Not very hard 08/23/2024 [facility] of Occupat ional Health - Occupational Stress [...] place to sleep or slept in a half-way (including now)? 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 Not on file Not on file documented as of this encounter Plan of Treatment Upcoming Encounters Date Type Department Care Team (Late st Contact Info) Description 02/28/2025 12:50 PM EST Office Visit [facility] ORTHOPEDICS & SPORTS MEDICINE [address] [place] [address] Olvin Mo MD [address] [place] [address] documented as of this encounter Visit Diagnoses Not on filedocumented in this encounter Care Teams Hogshead Inspector Relationship Specialty Start Date End Date Wm Tobias MD [address] [facility] [address] [facility] [address] [place] [address] PCP - General Adolescent Medicine 08/23/24 documented as of this encounter
--- OUTSIDE RECORDS SUMMARY | 2024-11-05 12:42 | XMS_ITS | Clinical Summary ---
Author Organization [facility] Address [address] [place] [address] Care Team Providers Care Principal Cyber Engineer Name Role Phone Unavailable Primary Care Provider Unavailabl e Encounters Date Type Department Care Team Description 08/21/2024 Orders Only External Location [address] [place] [address] Lm Major, 08/21/2024 Orders Only External Location [address] [place] [address] Lm Major, 08/21/2024 Orders Only External Location [address] [place] [address] Lm Major, from Last 3 Months Social History Tobacco Use Types Packs/Day Years Used Date Smoking Tobacco: Never Assessed Sex and Gender Information Value Date Recorded Sex Assigned at Not on file Legal Sex Male 8:04 AM EDT Gender Identity Not on file Sexual Orientation Not on file Plan of Treatment Health Maintenance Due Date Last Done Comments [facility]-Depression Screening 1944 [facility]-/Child/Adol SDOH Screenings 1944 [facility]- SDOH Screenings 1962 [facility]-Adult SDOH Screenings 1962 [facility]-DTaP,Tdap,and Td Vaccine s (1 - Tdap) 1963 [facility]-Pneumococcal Vaccine: 50 + Years (1 of 1 - PCV) 1994 [facility]-Zoster Vaccines (1 of 2) 1994 [facility]-RSV Vaccine: 60+ Years o r (1 - 1-dose 75+ series) 2019 ZNT-[id number]-34 Vaccine (1 - 20 24-25 season) 2023 [facility]-Influenza Vaccine (#1) 2024 HPV Vaccines Aged Out No longer [...]
--- OUTSIDE RECORDS SUMMARY | 2024-11-05 12:42 | XMS_ITS | Encounter Summary ---
Author Organization [facility] Address [address] [place] [address] Care Team Providers Care Airplane Pilot Name Role Phone Wm Tobias MD Primary Care Provider [phone] Encounter Details Date Type Department Care Team ([facility] Contact Info) Description 05/18/2021 Telephone [facility] GENERAL SURGERY [address] [phone] Liam Phelan MD [address] [id number] Social History Tobacco Use Types Packs/Day Years Used Date Smoking Tobacco: Never Smokeless Tobacco: Never Alcohol Use Standard Drinks/Week Comments Never 0 (1 standard drink = 0.6 oz pur e alcohol) AUDIT-C Answer Date Recorded Q1: How often do you have a drink containing alc ohol? 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 Not on file Not on file documented as of this encounter Plan of Treatment Upcoming Encounters Date Type Department Care Team (Late Contact Info) Description 02/28/2025 12:50 PM EST Office Visit [facility] ORTHOPEDICS & SPORTS MEDICINE [address] [place] [address] [place] [address] [place] [address] [place] [address] documented as of this encounter Visit Diagnoses Not on filedocumented in this encounter Additional Health Concerns Infection Onset Date Last Indicated Resolved Time COVID Screen (preop/placement) 04/26/2021 05/21/2021 05/21/2021 8:49 PM EST COVID (rule out) 05/23/2021 05/23/2021 05/23/2021 12:53 PM EST COVID Screen (preop/placement) 05/30/2021 07/23/2021 07/23/2021 8:37 PM EDT COVID Screen (preop/placement) 08/01/2021 08/28/2021 08/07/2021 5:50 PM EDT COVID (rule out) 08/28/2021 08/28/2021 08/31/2021 9:31 AM EDT documented as of this encounter Care Teams Airplane Pilot Relationship Specialty Start Date End Date Wm Tobias MD [address] [place] [address] [address] [place] [address] PCP - General Adolescent Medicine 08/23/24 documented as of this encounter
--- NOTE | 2024-11-05 13:00 | CT_ITS ---
FINAL REPORT TECHNIQUE: Postcontrast axial images through the abdomen and pelvis were performed. This study was performed with techniques to keep radiation doses as low as reasonably achievable, (ALARA). Individualized dose reduction techniques using automated exposure control or adjustment of mA and/or kV according to the patient's size were employed. CLINICAL HISTORY: Perianal abscess IV contrast ONLY COMPARISON: None FINDINGS: Abdomen: The lung bases are clear. The liver is normal in size and attenuation. The spleen is unremarkable. The adrenals are normal. The pancreas is unremarkable. Multiple left renal stones are identified, the largest measuring 11 mm. There is minimal right nephrolithiasis. There is no obstructing stone or hydronephrosis. The gallbladder is unremarkable. There is no biliary obstruction. There is no bowel obstruction. The aorta is normal in caliber. No free fluid or adenopathy is identified. No findings for mechanical bowel obstruction are identified. Pelvis: The appendix is unremarkable. There is a small infraumbilical hernia containing fat. The bladder and prostate are unremarkable. There are post ORIF changes from right femoral neck fracture. No free fluid, free air, abscess or adenopathy is identified. IMPRESSION: No acute intra-abdominal findings Bilateral renal stones, much more extensive on the left, without evidence of obstructing stone disease. Reviewed, Interpreted and Dictated by Leanna Yanes MD Transcribed by Lovely Grady Authenticated and [facility]
[2024-11-05] MEDS: SODIUM CHLORIDE 0.9% 10ML SYR (RAD ONLY) 10 ML IV (13:08)
[2024-11-05] MEDS: IOPAMIDOL-370 (76%);100ML BOTTLE 75 ML IV (13:08)
== END 2024-11-05 23:59 | disposition home or self-care (01) ==
LOC: RAD 12:40
PROVIDERS: PCP Nurse Practitioner Family; Visit Provider Surgery
DX: N20.0 Calculus of kidney (principal); K61.0 Anal abscess
CPT/HCPCS: 74177; Q9967